=== PATIENT | female | born 1975 | race Caucasian/White ===

== ENCOUNTER 2017-01-18 23:14 | Inpatient (IN) | payer OTHER ==
[2017-01-19] MEDS ORDERED: SODIUM CHLORIDE 1,000 ML IV STA ×2 (00:13→01:27)
[2017-01-19 00:46] LABS: BASOPHIL 0.9 % (0-2.0); EOSINOPHIL 1.4 % (0-4.5); MCH 26.5 pg (25.7-33.7); MCHC 32.5 g/dl (32.0-36.0); MEAN CELL VOLUME 81.6 fl (80-96); MEAN PLT VOLUME 7.9 fl (7.5-11.1); NEUTROPHILS 51.9 % (42.8-82.8); PLATELET COUNT 316 K/MM3 (134-434); RDW 16.6 % (11.6-15.6)
[2017-01-19 00:52] LABS: URINE APPEARANCE CLEAR; URINE BILIRUBIN NEGATIVE (NEGATIVE); URINE BLOOD NEGATIVE (NEGATIVE); URINE COLOR COLORLESS; URINE GLUCOSE (UA) 3+ (NEGATIVE); URINE KETONE 1+ (NEGATIVE); URINE LEUK ESTERASE NEGATIVE (NEGATIVE); URINE NITRITE NEGATIVE (NEGATIVE); URINE PROTEIN NEGATIVE (NEGATIVE); URINE UROBILINOGEN NEGATIVE mg/dL (0.2-1.0)
[2017-01-19 00:52] LABS: VENOUS BLOOD GAS HCO3 23.2 meq/L (19-25); VENOUS PH 7.25 (7.32-7.42)
[2017-01-19 01:22] LABS: ALBUMIN 3.5 g/dl (3.4-5.0); ANION GAP 12 (8-16); BILIRUBIN,TOTAL 0.3 mg/dL (0.2-1.0); CALCIUM 9.3 mg/dL (8.5-10.1); CO2 24 mmol/L (21-32); CREATININE 1.3 mg/dL (0.55-1.02); SGOT/AST 48 U/L (15-37); SGPT/ALT 27 U/L (12-78); TOT PROT 7.5 g/dl (6.4-8.2)
--- NOTE | 2017-01-19 01:22 | PDOC ---
History of Present Illness - General Chief Complaint: Blood Sugar Problem Stated Complaint: HIGH SUGAR LEVEL Time Seen by Provider: 01/18/17 23:52 - History of Present Illness Initial Comments: 01/19/17 01:16 " The patient is a 41 year old female, with a significant past medical history of Type I Diabetes , migraines, trigeminal neuralgia, gastroparesis, IBS, depression (Xanax as needed), who presents to the emergency department for complaints of feeling tired, weak, and shaky today. She reports feeling weak around noon time and reports eating half of a slice of pizza. She reports recording her BG as 450 at 4PM. The patient states she has not had her humalog ( takes 40u BID) for about a week and has been using 40 units of novolog daily because she can not afford to refill the humalog prescription. She reports being in DKA numerous times in the past, but states she doesnt feel that bad yet. She reports feeling at her worst when her BG is close to 800 and feels most comfortable around 200. She reports chills and feeling warm, but denies fever. She denies chest pain, shortness of breath, headache and dizziness. She denies fever, nausea, vomit, diarrhea and constipation. She denies dysuria, frequency, urgency and hematuria. Allergies: NKDA Social history: Denies toxic habits " Past History - Past Medical History Allergies/Adverse Reactions: Allergies Allergy/AdvReac Type Severity Reaction Status Date / Time azithromycin [From Zithromax] Allergy Verified 01/18/17 23:18 Home Medications: Ambulatory Orders Insulin Glargine,Hum.rec.anlog [Lantus (nf)] 30 units SQ HS 11/21/15 Novolog - units SQ TID 11/22/15 Methocarbamol [Robaxin -] 500 mg PO TID #21 tablet 03/31/16 Oxycodone HCl/Acetaminophen [Percocet 5/325 -] 1 tab PO Q6H #14 tablet MDD 4 Anemia: No Asthma: No Cancer: No Cardiac Disorders: No CVA: No COPD: No CHF: No Dementia: No Diabetes: Yes (IDDM 01/27 BS (150)) GI Disorders: Yes (IBS) Disorders: (severe gastroparesis, [facility] HTN: No Hypercholesterolemia: Yes (atherosclerosis) Liver Disease: No Psychiatric Problems: Yes (DEPRESSION) Seizures: No Thyroid Disease: No - Surgical History Abdominal Surgery: Yes (RIGHT ABD LIPOMA) Appendectomy: No Cardiac Surgery: No Cholecystectomy: No Lung Surgery: No Neurologic Surgery: No Orthopedic Surgery: No - Reproductive History Tubal Ligation: Yes - Immunization History Td Vaccination: Yes TDAP Vaccination: Yes Immunization Up to Date: No - Psycho/Social/Smoking Cessation Hx Anxiety: No Suicidal Ideation: No Smoking Status: No Smoking History: Never smoked Have you smoked in the past 12 months: No Number of Cigarettes Smoked Daily: 0 Hx Alcohol Use: Yes (SOCIAL) Drug/Substance Use Hx: No Substance Use Type: None Hx Substance Use Treatment: No Review of Systems - Review of Systems Comments:: 01/19/17 01:21 "GENERAL/CONSTITUTIONAL: (+) chills and generalized weakness.No fever HEAD, EYES, EARS, NOSE AND THROAT: No change in vision. No ear pain or discharge. No sore throat. CARDIOVASCULAR: No chest pain or shortness of breath. RESPIRATORY: No cough, wheezing, or hemoptysis. GASTROINTESTINAL: No nausea, vomiting, diarrhea or constipation. GENITOURINARY: No dysuria, frequency, or change in urination. MUSCULOSKELETAL: No joint or muscle swelling or pain. No neck or back pain. SKIN: No rash NEUROLOGIC: No headache, vertigo, loss of consciousness, or change in strength/ sensation. ENDOCRINE: No increased thirst. No abnormal weight change. HEMATOLOGIC/LYMPHATIC: No anemia, easy bleeding, or history of blood clots. ALLERGIC/IMMUNOLOGIC: No hives or skin allergy. " *Physical Exam - Vital Signs Last Vital Signs Temp Pulse Resp BP Pulse Ox 98.6 F 98 H 18 134/73 99 01/18/17 23:16 01/18/17 23:16 01/18/17 23:16 01/18/17 23:16 01/18/17 23:16 - Physical Exam Comments: 01/19/17 01:21 """GENERAL: Awake, alert, and fully oriented, in no acute distress HEAD: No signs of trauma EYES: PERRLA, EOMI, sclera anicteric, conjunctiva clear ENT: Auricles normal inspection, hearing grossly normal, nares patent, oropharynx clear without exudates. Moist mucosa NECK: Normal ROM, supple, no lymphadenopathy, JVD, or masses LUNGS: Breath sounds equal, clear to auscultation bilaterally. No wheezes, and no crackles HEART: Regular rate and rhythm, normal S1 and S2, no murmurs, rubs or gallops ABDOMEN: Soft, nontender, normoactive bowel sounds. No guarding, no rebound. No masses EXTREMITIES: Normal range of motion, no edema. No clubbing or cyanosis. No cords, erythema, or tenderness NEUROLOGICAL: Cranial nerves II through XII grossly intact. Normal speech, normal gait SKIN: Warm, Dry, normal turgor, no rashes or lesions noted. """ ED Treatment Course - LABORATORY CBC & Chemistry Diagram: 01/19/17 00:35 01/19/17 00:35 - ADDITIONAL ORDERS Additional order review: Laboratory Results 01/19/17 01/19/17 00:44 00:35 VBG pH 7.25 L POC VBG pCO2 55.2 H D POC VBG pO2 27.5 L Mixed VBG HCO3 23.2 Urine Color Colorless Urine Appearance Clear Urine pH 6.0 Urine Protein Negative Urine Glucose (UA) 3+ H Urine Ketones 1+ H Urine Blood Negative Urine Nitrite Negative Urine Bilirubin Negative Urine Urobilinogen Negative Ur Leukocyte Esterase Negative 01/19/17 00:35 RBC 4.42 MCV 81.6 MCHC 32.5 RDW 16.6 H MPV 7.9 Neutrophils % 51.9 Lymphocytes % 38.4 Monocytes % 7.4 Eosinophils % 1.4 Basophils % 0.9 - Medications Given in the ED: ED Medications Discontinued Medications Generic Name Dose Route Start Last Admin Trade Name Freq PRN Reason Stop Dose Admin Sodium Chloride 1,000 mls @ 1,000 mls/hr 01/19/17 00:13 01/19/17 00:44 Normal Saline - IV 01/19/17 01:12 1,000 mls/hr ASDIR STA Administration Medical Decision Making - Medical Decision Making 01/19/17 01:21 41 F with h/o DM1, DKA in the past, presents to ER with hyperglycemia in the context of medication noncompliance. Pt with stable vitals at this time. Fingerstick elevated to 400s. - Labs, serum ketones, VBG - IVF - Insulin PRN 01/19/17 03:14 Labs notable for +serum and urine ketones. VBG with pH 7.25, reflecting mild acidosis. However, AG is only 12. Pt likely in mild DKA. Pt given single dose of insulin 7u IV and 2L NS. Will hold on insulin gtt for now as gap is closed. Admit to hospital. *DC/Admit/Observation/Transfer Diagnosis at time of Disposition: Hyperglycemia - Discharge Dispostion Admit: Yes - Attestations Physician Attestion: 01/19/17 03:16 I, Dr. Scar Romeo MD, attest that this document has been prepared under my direction and personally reviewed by me in its entirety. I further attest, that it accurately reflects all work, treatment, procedures and medical decision -making performed by me.
[2017-01-19 01:23] LABS: ALK PHOS 178 U/L (45-117)
[2017-01-19 01:32] LABS: GLUCOSE,RANDOM 594 mg/dL (74-106)
[2017-01-19] MEDS ORDERED: INSULIN REGULAR HUMAN 100 UNITS/ML *VIAL IVPUSH ONE (01:42)
[2017-01-19 01:49] LABS: ACETONE SERUM POSITIVE SMALL 1+ (NEGATIVE)
[2017-01-19] MEDS ORDERED: INSULIN REGULAR HUMAN 100 UNITS/ML *VIAL ONE (02:23)
[2017-01-19] MEDS ORDERED: ONDANSETRON 4 MG/2 ML VIAL IVPB PRN (03:15)
[2017-01-19] MEDS ORDERED: ACETAMINOPHEN 325 MG TABLET (FP) PO PRN (03:16)
--- NOTE | 2017-01-19 03:20 | HP ---
Admitting History and Physical - Admission Chief Complaint: hyperglycemia History of Present Illness: 41 year old female, with a significant past medical history of Type I Diabetes , migraines, trigeminal neuralgia, gastroparesis, IBS, depression presents to the ER for hyperglycemia. she reports difficulty paying for her meds 2/2 to demanding financial trouble. she reports running out of humalog 75/25 and using novolog. she has not been feeling well over the past few days and has been having bgm in the 400s. she has been requiring 40 units of insulin daily. 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 she reports some chest tightness a few days ago which has cleared. she denies n/v/f/c/d. she denies earache, dysuria, cp, heart palps, recent travel sick contacts. she denies hematuria, bloody stools. 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 denies tobacco, rec drugs famhx- NC Ros neg except for hpi Pex gen- in nad, alert hent- at/nc, shireen, neck supple, trachea midline resp- no cough, no ronchi, , no rales, lungs ctab cards- rrr, no jvd, no leg edema, s1s2 heard skin- dry, no erythema gi- soft non-tender, no rebound, no guarding, no rigidity neuro- cn2-12 grossly intact, speech clear, no focal deficits psych- cooperative, no agitation musk- normal arom bue/ble, no back pain prob list dm type 1 hyperglycemia malaise hyponatremia imaging cxr pending a/p-41 year old female, with a significant past medical history of Type I Diabetes , migraines, trigeminal neuralgia, gastroparesis, IBS, depression presents to the er for hyperglycemia and admitted for evaluation of their emergent condition 1. type 1 dm, hyperglycemia No AG acidosis, although ketones Was given 7U insulin Iv and 2L bolus in Er Monitor BMp [id number] x 24 hours Resume home insulin 2. hyponatremia likely hyperglycemic effect monitor labs FEN IVF diabetic diet Dvt prophy low risk, scd, oob dispo- admission for hyperglycemia. 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 History Source: Patient Limitations to Obtaining History: No Limitations - Past Medical History APPLICATIONS SUPPORT LEAD: Yes: Migraine Cardiovascular: Yes: Hyperlipdemia Pulmonary: Yes: Other (cough) Gastrointestinal: Yes: Irritable Bowel Disease, Pancreatitis ...LMP: 11/22/15 Psych: Yes: Anxiety, Depression Musculoskeletal: Yes: Chronic low back pain, Other (herniated discs) ENT: Yes: Sinusitis Endocrine: Yes: Diabetes Mellitus (IDDM) - Past Surgical History Past Surgical History: Yes: Tubal Ligation (2007 Laproscopic BTL) - Smoking History Smoking history: Never smoked Have you smoked in the past 12 months: No Aproximately how many cigarettes per day: 0 - Alcohol/Substance Use Hx Alcohol Use: Yes (SOCIAL) History of Substance Use: reports: None - Social History ADL: Independent History of Recent Travel: No Home Medications - Allergies Allergies/Adverse Reactions: Allergies Allergy/AdvReac Type Severity Reaction Status Date / Time azithromycin [From Zithromax] Allergy Verified 01/18/17 23:18 - Home Medications Home Medications: Ambulatory Orders Alprazolam [Xanax] 0.5 mg PO DAILY PRN 01/19/17 Humalog Mix 75-25 Kwikpen 40 units SQ BID #1 syr 01/20/17 Family Disease History - Family Disease History Family Disease History: Diabetes: Father (HLD), Mother Physical Examination Vital Signs: Vital Signs Temperature 98.6 F 01/18/17 23:16 Pulse Rate 98 H 01/18/17 23:16 Respiratory Rate 18 01/18/17 23:16 Blood Pressure 134/73 01/18/17 23:16 O2 Sat by Pulse Oximetry (%) 99 01/18/17 23:16 Labs: CBC, BMP 01/19/17 00:35 01/19/17 00:35 Visit type - Emergency Visit Emergency Visit: Yes ED Registration Date: 01/19/17 Care time: The patient presented to the Emergency Department on the above date and was hospitalized for further evaluation of their emergent condition. - New Patient This patient is new to me today: Yes Date on this admission: 01/22/17 - Critical Care Critical Care patient: No
[2017-01-19] MEDS: SODIUM CHLORIDE 1,000 ML IV SCH ×3 (03:22→22:47)
[2017-01-19] MEDS ORDERED: ONDANSETRON *ODT* 4 MG TABLET ONE (06:15)
[2017-01-19] MEDS ORDERED: INSULIN (NOVOLOG) ASPART 100 UNITS/ML 10ML VIAL ONE (06:36)
[2017-01-19] MEDS ORDERED: INSULIN (NOVOLOG MIX 70/30) 100 UNITS/ML MDV SQ SCH ×2 (07:00→16:30)
[2017-01-19] MEDS ORDERED: INSULIN SLIDING SCALE (NOVOLOG) 1 VIAL SQ SCH ×3 (07:00→07:54)
[2017-01-19 07:08] LABS: ALK PHOS 132 U/L (45-117); ANION GAP 14 (8-16); BILIRUBIN,TOTAL 0.3 mg/dL (0.2-1.0); CALCIUM 8.2 mg/dL (8.5-10.1); CO2 16 mmol/L (21-32); CREATININE 0.6 mg/dL (0.55-1.02); SGPT/ALT 22 U/L (12-78); TOT PROT 6.6 g/dl (6.4-8.2)
[2017-01-19 07:15] LABS: SGOT/AST 32 U/L (15-37)
[2017-01-19 07:17] LABS: GLUCOSE,RANDOM 364 mg/dL (74-106)
[2017-01-19 08:05] VITALS: BMI 25.7
[2017-01-19 09:35] LABS: ANION GAP 12 (8-16); CALCIUM 8.2 mg/dL (8.5-10.1); CO2 20 mmol/L (21-32); CREATININE 0.7 mg/dL (0.55-1.02); GLUCOSE,RANDOM 204 mg/dL (74-106)
[2017-01-19 12:39] LABS: ANION GAP 10 (8-16); CALCIUM 8.2 mg/dL (8.5-10.1); CO2 24 mmol/L (21-32); CREATININE 0.5 mg/dL (0.55-1.02); GLUCOSE,RANDOM 257 mg/dL (74-106)
[2017-01-19 15:49] LABS: ANION GAP 10 (8-16); CALCIUM 8.7 mg/dL (8.5-10.1); CO2 24 mmol/L (21-32); CREATININE 0.6 mg/dL (0.55-1.02); GLUCOSE,RANDOM 264 mg/dL (74-106)
--- NOTE | 2017-01-19 16:52 | HOSP ---
Physical Examination Vital Signs: Vital Signs Temperature 98.3 F 01/19/17 14:00 Pulse Rate 90 01/19/17 14:00 Respiratory Rate 20 01/19/17 14:00 Blood Pressure 111/44 01/19/17 14:00 O2 Sat by Pulse Oximetry (%) 99 01/19/17 06:18 Findings/Remarks: Subjective: The patient was seen and examined at the bedside, she reports feeling good. She states her insulin dosing is not correct here and that she takes Humalog Mix 75/25 40u sq bid. Will change order. Current Medications Generic Name Dose Route Start Last Admin Trade Name Freq PRN Reason Stop Dose Admin Acetaminophen 650 mg 01/19/17 03:16 Tylenol - PO Q4H PRN FEVER OR PAIN Sodium Chloride 1,000 mls @ 125 mls/hr 01/19/17 03:15 01/19/17 15:25 Normal Saline - IV 125 mls/hr ASDIR SKINNY Administration Insulin Aspart 1 vial 01/19/17 16:26 Novolog Vial Sliding Scale - SQ [facility] Protocol Insulin Aspart 40 units 01/19/17 16:49 Novolog Mix 70/30 Vial SQ BIDAC SKINNY Ondansetron HCl 4 mg 01/19/17 03:15 Zofran Injection IVPB Q4H PRN NAUSEA AND/OR VOMITING Objective: Vital Signs Period Temp Pulse Resp BP Sys/Crisostomo Pulse Ox Last 24 Hr 98.2 F-98.6 F 90-100 18-20 110-134/44-75 99-99 CBCD WBC 4.0 K/mm3 (4.0-10.0) D 01/19/17 00:35 RBC 4.42 M/mm3 (3.60-5.2) 01/19/17 00:35 Hgb 11.7 GM/dL (10.7-15.3) 01/19/17 00:35 Hct 36.1 % (32.4-45.2) 01/19/17 00:35 MCV 81.6 fl (80-96) 01/19/17 00:35 MCHC 32.5 g/dl (32.0-36.0) 01/19/17 00:35 RDW 16.6 % (11.6-15.6) H 01/19/17 00:35 Plt Count 316 K/MM3 (134-434) D 01/19/17 00:35 MPV 7.9 fl (7.5-11.1) 01/19/17 00:35 CMP Sodium 141 mmol/L (136-145) 01/19/17 14:35 Potassium 4.3 mmol/L (3.5-5.1) 01/19/17 14:35 Chloride 107 mmol/L (98-107) 01/19/17 14:35 Carbon Dioxide 24 mmol/L (21-32) 01/19/17 14:35 Anion Gap 10 (8-16) 01/19/17 14:35 BUN 9 mg/dL (7-18) 01/19/17 14:35 Creatinine 0.6 mg/dL (0.55-1.02) 01/19/17 14:35 Creat Clearance w eGFR > 60 (>60) 01/19/17 06:25 Random Glucose 264 mg/dL (74-106) H 01/19/17 14:35 Calcium 8.7 mg/dL (8.5-10.1) 01/19/17 14:35 Total Bilirubin 0.3 mg/dL (0.2-1.0) 01/19/17 06:25 AST 32 U/L (15-37) D 01/19/17 06:25 ALT 22 U/L (12-78) 01/19/17 06:25 Alkaline Phosphatase 132 U/L (45-117) H D 01/19/17 06:25 Total Protein 6.6 g/dl (6.4-8.2) 01/19/17 06:25 Albumin 3.0 g/dl (3.4-5.0) L 01/19/17 06:25 Assessment: This is a 41 year old female with PMHx of IDDM, chronic abd pain/IBS , migranes, artherosclerosis, scoliosis, and chronic lower back pain who presented to ED with hyperglycemia after not being able to afford her insulin as an outpatient Plan: 1) Endocrine: IDDM, hyperglycemia, early DKA - Bicarb 16 this am, repeat this afternoon 24 - Anion gap 14 this AM, improved with insulin and IV fluids - Restart home insulin dose 70/30 40u sq bid - Increased meal coverage sliding scale - Monitor anion gap - F/u social services manager as patient is unable to afford insulin - BGM ACHS 2) F/E/N: - Diabetic diet - Monitor electrolytes 3) Prophylaxis: - OOB ambulating - SCDs bilaterally 4) Dispo: - Once sugars are controlled - Needs to discuss how she will pay for insulin with social services manager CODE STATUS: FULL CODE Labs: CBC, BMP 01/19/17 14:35
[2017-01-19] MEDS: INSULIN SLIDING SCALE (NOVOLOG) 1 VIAL SQ SCH (17:40)
[2017-01-19] MEDS: INSULIN (NOVOLOG MIX 70/30) 100 UNITS/ML MDV SQ SCH (17:41)
[2017-01-19] MEDS ORDERED: INSULIN (NOVOLOG MIX 70/30) 100 UNITS/ML MDV SQ ONE (18:18)
[2017-01-19] MEDS ORDERED: oxyCODONE HCL 5 MG TABLET PO PRN (20:16)
[2017-01-20 06:24] VITALS: BP 110/65; PULSE 88; TEMP 98.2
[2017-01-20] MEDS: INSULIN SLIDING SCALE (NOVOLOG) 1 VIAL SQ SCH (06:43)
[2017-01-20] MEDS: INSULIN (NOVOLOG MIX 70/30) 100 UNITS/ML MDV SQ SCH (06:47)
[2017-01-20] MEDS: SODIUM CHLORIDE 1,000 ML IV SCH (06:49)
[2017-01-20 07:47] LABS: MCHC 32.3 g/dl (32.0-36.0); MEAN CELL VOLUME 80.4 fl (80-96); PLATELET COUNT 306 K/MM3 (134-434); RDW 16.9 % (11.6-15.6); WHITE BLOOD COUNT 4.5 K/mm3 (4.0-10.0)
[2017-01-20 08:09] LABS: ALBUMIN 2.8 g/dl (3.4-5.0); ANION GAP 10 (8-16); CALCIUM 8.1 mg/dL (8.5-10.1); CO2 23 mmol/L (21-32); CREATININE 0.5 mg/dL (0.55-1.02); GLUCOSE,RANDOM 110 mg/dL (74-106); SGOT/AST 20 U/L (15-37); SGPT/ALT 19 U/L (12-78)
[2017-01-20 08:11] LABS: ALK PHOS 104 U/L (45-117); BILIRUBIN,TOTAL 0.4 mg/dL (0.2-1.0); TOT PROT 6.2 g/dl (6.4-8.2)
--- NOTE | 2017-01-20 09:19 | DS ---
Physical Exam: SUBJECTIVE: Patient seen and examined OBJECTIVE: Vital Signs Period Temp Pulse Resp BP Sys/Crisostomo Pulse Ox Last 24 Hr 98.2 F-98.9 F 79-90 20-20 110-112/44-65 99 PHYSICAL EXAM GENERAL: The patient is awake, alert, and fully oriented, in no acute distress. HEAD: Normal with no signs of trauma. EYES: PERRL, extraocular movements intact, sclera anicteric, conjunctiva clear. ENT: Ears normal, nares patent, oropharynx clear without exudates, moist mucous membranes. NECK: Trachea midline, full range of motion, supple. LUNGS: Breath sounds equal, clear to auscultation bilaterally, no wheezes, no crackles, no accessory muscle use. HEART: Regular rate and rhythm, S1, S2 without murmur, rub or gallop. ABDOMEN: Soft, nontender, nondistended, normoactive bowel sounds, no guarding, no rebound, no hepatosplenomegaly, no masses. EXTREMITIES: 2+ pulses, warm, well-perfused, no edema. NEUROLOGICAL: Cranial nerves II through XII grossly intact. Normal speech, gait not observed. PSYCH: Normal mood, normal affect. SKIN: Warm, dry, normal turgor, no rashes or lesions noted. LABS Laboratory Results - last 24 hr 01/19/17 01/19/17 01/19/17 09:08 09:42 11:25 WBC RBC Hgb Hct MCV MCH MCHC RDW Plt Count MPV Sodium 139 140 Potassium 4.5 4.0 Chloride 107 106 Carbon Dioxide 20 L D 24 Anion Gap 12 10 BUN 11 D 10 Creatinine 0.7 0.5 L D Creat Clearance w eGFR POC Glucometer 240 Random Glucose 204 H D 257 H D Calcium 8.2 L 8.2 L Total Bilirubin AST ALT Alkaline Phosphatase Total Protein Albumin 01/19/17 01/19/17 01/19/17 11:37 14:35 15:27 WBC RBC Hgb Hct MCV MCH MCHC RDW Plt Count MPV Sodium 141 Potassium 4.3 Chloride 107 Carbon Dioxide 24 Anion Gap 10 BUN 9 Creatinine 0.6 Creat Clearance w eGFR POC Glucometer 253 314 Random Glucose 264 H Calcium 8.7 Total Bilirubin AST ALT Alkaline Phosphatase Total Protein Albumin 01/19/17 01/19/17 01/20/17 16:58 22:18 06:30 WBC 4.5 RBC 4.28 Hgb 11.1 Hct 34.4 MCV 80.4 MCH 26.0 MCHC 32.3 RDW 16.9 H Plt Count 306 MPV 8.0 Sodium Potassium Chloride Carbon Dioxide Anion Gap BUN Creatinine Creat Clearance w eGFR POC Glucometer 321 78 Random Glucose Calcium Total Bilirubin AST ALT Alkaline Phosphatase Total Protein Albumin 01/20/17 01/20/17 06:30 06:42 WBC RBC Hgb Hct MCV MCH MCHC RDW Plt Count MPV Sodium 143 Potassium 3.5 Chloride 110 H Carbon Dioxide 23 Anion Gap 10 BUN 6 L D Creatinine 0.5 L Creat Clearance w eGFR > 60 POC Glucometer 105 Random Glucose 110 H D Calcium 8.1 L Total Bilirubin 0.4 D AST 20 D ALT 19 Alkaline Phosphatase 104 D Total Protein 6.2 L Albumin 2.8 L HOSPITAL COURSE: Date of Admission:01/19/17 Date of Discharge: 01/20/17 Discharge Summary Reason For Visit: HYPERGLYCEMIA Current Active Problems Hydrosalpinx (Acute) Hyperglycemia (Acute) Pancreatitis (Acute) - Instructions Diet, Activity, Other Instructions: You are being provided with a prescription for Humalog 75/25 Kwikpen. Return to the emergency department for any new or worsening symptoms. Referrals: Ariel Schaeffer MD [Primary Care Provider] - - Home Medications Comprehensive Discharge Medication List: Ambulatory Orders Alprazolam [Xanax] 0.5 mg PO DAILY PRN 01/19/17 Humalog Mix 75-25 Kwikpen 40 units SQ BID #1 syr 01/20/17
== END 2017-01-20 10:51 | disposition home or self-care (01) | DRG 638 ==
LOC: JER 23:14 → JERBED 01-19 03:16 → UNDOADMIN 01-19 03:24 → JERBED 01-19 03:24 → J6S 01-19 06:49
PROVIDERS: ADMIT Internal Medicine; ATTEND Nurse Practitioner Acute Care
DX: E10.65 Type 1 diabetes mellitus with hyperglycemia (principal); E87.1 Hypo-osmolality and hyponatremia; E10.43 Type 1 diabetes mellitus with diabetic autonomic (poly)neuropathy; K31.84 Gastroparesis; Z79.4 Long term (current) use of insulin; G43.809 Other migraine, not intractable, without status migrainosus; G50.0 Trigeminal neuralgia; K58.8 Other irritable bowel syndrome; E78.00 Pure hypercholesterolemia, unspecified; J32.8 Other chronic sinusitis; M51.27 Other intervertebral disc displacement, lumbosacral region; F41.8 Other specified anxiety disorders
CPT/HCPCS: 36415; 71010-TC; 80048; 80053; 81003; 82009; 82803; 83690; 84703; 85025; 85027; 99285-25

== ENCOUNTER 2017-02-26 13:09 | Inpatient (IN) | payer OTHER ==
--- NOTE | 2017-02-26 13:53 | PDOC ---
History of Present Illness - General Chief Complaint: Nausea/Vomiting Stated Complaint: VOMITING Time Seen by Provider: 02/26/17 13:51 - History of Present Illness Initial Comments: 02/26/17 13:52 Ms. Crum is a 42 yo female with a significant past medical history of IDDM, gastroparesis, pancreatitis, gallstones, IBS, anxiety who presents to the emergency department complaining of a 1 day history of nausea with vomiting. She says that it began last night and continued this morning when she was getting ready for work. She had been feeling fine and had 3 drinks to celebrate her birthday but says that she began vomiting later in the night water she had been drinking. She describes the vomit this morning as consisting of some chicken that she ate last night. Ms. Crum also endorses midline abdominal gastric burning she says is on the skin and that she has had 3 small episodes of diarrhea today. She relates this episode as similar to last year to when she presented for her gastroparesis. The patient denies chest pain, shortness of breath, headache and dizziness. Denies fever, chills, and constipation. Denies dysuria, frequency, urgency and hematuria. Allergies: Azithromycin Past History - Past Medical History Allergies/Adverse Reactions: Allergies Allergy/AdvReac Type Severity Reaction Status Date / Time azithromycin [From Zithromax] Allergy Verified 02/26/17 13:22 Home Medications: Ambulatory Orders Alprazolam [Xanax] 0.5 mg PO DAILY PRN 01/19/17 Humalog Mix 75-25 Kwikpen 40 units SQ BID #1 syr 01/20/17 Anemia: No Asthma: No Cancer: No Cardiac Disorders: No CVA: No COPD: No CHF: No Dementia: No Diabetes: Yes (IDDM) GI Disorders: Yes (IBS) Disorders: Yes (severe gastroparesis, pancreatitis w/hospitalization at [facility]) HTN: No Hypercholesterolemia: No Liver Disease: No Psychiatric Problems: Yes (DEPRESSION) Seizures: No Thyroid Disease: No - Surgical History Abdominal Surgery: Yes (RIGHT ABD LIPOMA) Appendectomy: No Cardiac Surgery: No Cholecystectomy: No Lung Surgery: No Neurologic Surgery: No Orthopedic Surgery: No - Reproductive History Tubal Ligation: Yes - Immunization History Td Vaccination: Yes TDAP Vaccination: Yes Immunization Up to Date: No - Suicide/Smoking/Psychosocial Hx Smoking Status: No Smoking History: Never smoked Have you smoked in the past 12 months: No Number of Cigarettes Smoked Daily: 0 Hx Alcohol Use: No Drug/Substance Use Hx: No Substance Use Type: None Hx Substance Use Treatment: No Review of Systems - Review of Systems Comments:: 02/26/17 13:53 GENERAL/CONSTITUTIONAL: No fever or chills. No weakness. HEAD, EYES, EARS, NOSE AND THROAT: No change in vision. No ear pain or discharge. No sore throat. CARDIOVASCULAR: No chest pain or shortness of breath RESPIRATORY: No cough, wheezing, or hemoptysis. GASTROINTESTINAL: +Burning reported surrounding umbilicus patient describes as burning sensation. +Nausea with vomiting consisting of recent diet. 3 small episodes of diarrhea. Typically has constipation daily as well. GENITOURINARY: No dysuria, frequency, or change in urination. MUSCULOSKELETAL: No joint or muscle swelling or pain. No neck or back pain. SKIN: No rash NEUROLOGIC: No headache, vertigo, loss of consciousness, or change in strength/ sensation. ENDOCRINE: No increased thirst. No abnormal weight change HEMATOLOGIC/LYMPHATIC: No anemia, easy bleeding, or history of blood clots. ALLERGIC/IMMUNOLOGIC: No hives or skin allergy. *Physical Exam - Vital Signs Last Vital Signs Temp Pulse Resp BP Pulse Ox 98.7 F 122 H 20 116/61 100 02/26/17 13:19 02/26/17 13:19 02/26/17 13:19 02/26/17 13:19 02/26/17 13:19 - Physical Exam Comments: 02/26/17 13:53 GENERAL: Awake, alert, and fully oriented, in no acute distress HEAD: No signs of trauma, normocephalic, atraumatic EYES: PERRLA, EOMI, sclera anicteric, conjunctiva clear ENT: Auricles normal inspection, hearing grossly normal, nares patent, oropharynx clear without exudates. Moist mucosa NECK: Normal ROM, supple, no lymphadenopathy, JVD, or masses LUNGS: No distress, speaks full sentences, clear to auscultation bilaterally HEART: Regular rate and rhythm, normal S1 and S2, no murmurs, rubs or gallops, peripheral pulses normal and equal bilaterally. ABDOMEN: Soft, nontender, normoactive bowel sounds. No guarding, no rebound. No masses EXTREMITIES: Normal inspection, Normal range of motion, no edema. No clubbing or cyanosis. NEUROLOGICAL: Cranial nerves II through XII grossly intact. Normal speech, normal gait, no focal sensorimotor deficits SKIN: Warm, Dry, normal turgor, no rashes or lesions noted. ED Treatment Course - LABORATORY CBC & Chemistry Diagram: 02/26/17 15:08 02/26/17 15:08 Medical Decision Making - Medical Decision Making 02/26/17 16:58 Patient worked up initially as viral illness for N/V/D, lab glucose returned approx. 1630 that blood glucose was 706. Insulin push 5 units given with drip started .1 mcg /kg/ hr. 02/26/17 16:59 ICU consulted for admission for DKA. 02/26/17 17:40 Inpatient accepted patient for admission. *DC/Admit/Observation/Transfer Diagnosis at time of Disposition: Diabetic ketoacidosis Qualifiers: Diabetes mellitus type: type 1 Diabetes mellitus complication detail: without coma Qualified Code(s): E10.10 - Type 1 diabetes mellitus with ketoacidosis without coma - Discharge Dispostion Admit: Yes
[2017-02-26] MEDS ORDERED: ONDANSETRON 4 MG/2 ML VIAL IVPUSH ONE (14:04)
[2017-02-26] MEDS ORDERED: SODIUM CHLORIDE 1,000 ML IV STA ×2 (14:05→16:02)
[2017-02-26] MEDS ORDERED: morphine CARPU-JECT 2 MG/1 ML DISP.SYRIN IVPUSH ONE ×2 (14:13→16:30)
[2017-02-26] MEDS ORDERED: morphine CARPU-JECT 10 MG/1 ML DISP.SYRIN ONE ×2 (14:46→16:36)
[2017-02-26 15:38] LABS: BASOPHIL 0.4 % (0-2.0); MCH 25.7 pg (25.7-33.7); MCHC 30.1 g/dl (32.0-36.0); MEAN CELL VOLUME 85.5 fl (80-96); MEAN PLT VOLUME 9.1 fl (7.5-11.1); NEUTROPHILS 90.9 % (42.8-82.8); PLATELET COUNT 439 K/MM3 (134-434); RDW 17.4 % (11.6-15.6); WHITE BLOOD COUNT 14.2 K/mm3 (4.0-10.0)
--- NOTE | 2017-02-26 15:53 | PDOC ---
Attending Attestation - Resident Resident Name: Josh Lagos - ED Attending Attestation I have performed the following: I have examined & evaluated the patient, The case was reviewed & discussed with the resident, I agree w/resident's findings & plan, Exceptions are as noted - HPI HPI: 02/26/17 15:53 42yo F hx IDDM, gastropareisis, pancreatitis, gallstones, IBS, anxiety p/w 1 day of nausea and NBNB vomiting. Drank 3 etoh drinks yesterday. Had 3 small BM this morning, loose and 3 more bowel movements in the ED. Also reports burning pain to epigastric area. Has not checked her blood sugar today. No fevers, chills, CP, cough, SOB, dysuria, LE edema, rashes. REports this feels like the symptoms a/w her gastroparesis. - Physicial Exam PE: 02/26/17 16:00 GENERAL: Awake, alert, and fully oriented, in no acute distress HEAD: No signs of trauma EYES: PERRLA, EOMI, sclera anicteric, conjunctiva clear ENT: Auricles normal inspection, hearing grossly normal, nares patent, oropharynx clear without exudates. dry MM. NECK: Normal ROM, supple, no lymphadenopathy, JVD, or masses LUNGS: Breath sounds equal, clear to auscultation bilaterally. No wheezes, and no crackles HEART: tachy but regular to 110, normal S1 and S2, no murmurs, rubs or gallops ABDOMEN: Soft, nontender, normoactive bowel sounds. No guarding, no rebound. No masses EXTREMITIES: Normal range of motion, no edema. No clubbing or cyanosis. No cords, erythema, or tenderness NEUROLOGICAL: Normal speech, cranial nerves intact, negative pronator drift, 5/ 5 strength in all 4 extremities, normal sensation to light touch in all 4 extremities, normal cerebellar exam, normal gait, normal reflexes and tone SKIN: Warm, Dry, normal turgor, no rashes or lesions noted. - Medical Decision Making 02/26/17 17:47 42-year-old female with multiple medical problems including insulin-dependent diabetes presents with nausea vomiting, abdominal pain. Vitals remarkable for tachycardia to the 110s and exam with dry mucous membranes. Blood glucose is critically high. Concern for DKA vs hyperglycemia +/- infection -labs -IV -acetone, vbg -cxr -ua -likely admit Heart Score/ECG Review #1 02/26/17 18:16 Twelve-lead EKG was performed and reviewed by me. Sinus tachycardia, rate 113. Normal axis. Prolonged QT to 491. No ST elevations..
[2017-02-26] MEDS ORDERED: METOCLOPRAMIDE HCL INJECTION 10 MG/2 ML VIAL IVPB ONE (16:02)
[2017-02-26] MEDS ORDERED: METOCLOPRAMIDE HCL INJECTION 10 MG/2 ML VIAL IVPUSH ONE (16:02)
[2017-02-26 16:15] LABS: ALBUMIN 4.3 g/dl (3.4-5.0); ANION GAP 28 (8-16); CALCIUM 9.7 mg/dL (8.5-10.1); CO2 9 mmol/L (21-32)
[2017-02-26 16:18] LABS: ALK PHOS 200 U/L (45-117); BILIRUBIN,TOTAL 0.5 mg/dL (0.2-1.0); CREATININE 1.6 mg/dL (0.55-1.02); SGOT/AST 17 U/L (15-37); SGPT/ALT 20 U/L (12-78); TOT PROT 8.7 g/dl (6.4-8.2)
[2017-02-26 16:23] LABS: GLUCOSE,RANDOM 706 mg/dL (74-106)
[2017-02-26] MEDS ORDERED: METOCLOPRAMIDE HCL INJECTION 10 MG/2 ML VIAL ONE (16:25)
[2017-02-26] MEDS ORDERED: INSULIN REGULAR HUMAN 100 UNITS/ML *VIAL IVPUSH ONE (16:26)
[2017-02-26] MEDS ORDERED: INSULIN REGULAR HUMAN 100 UNITS/ML *VIAL ONE (16:46)
[2017-02-26] MEDS: INSULIN REGULAR 100 UNITS in SODIUM CHLORIDE 99 ML IVPB SCH (17:00)
[2017-02-26] MEDS ORDERED: MAGNESIUM SULF 50% (8.12 MEQ/2 ML-1 GM VIAL) IVPB ONE (17:57)
--- NOTE | 2017-02-26 18:27 | HP ---
CHIEF COMPLAINT: n/v PCP: Dr. Schaeffer HISTORY OF PRESENT ILLNESS: 42 yr old woman presents to the ED with 1 day of watery nonbilous nonbloody vomiting this morning and lower abdominal pain since last night. The pain is non -radiating, feels like burning and started around 9pm after she had eaten rotisseri chicken and drank 3 "tropical" sugary alcohol drinks earlier in the evening. She was in her usual state of health earlier yesterday. She had 2 episodes of vomiting this morning at 7am, went to work where she continued to feel abdominal pain. She went home and thought she just need a shower and rest but when that provided no relief she came to the ED. a/w with mid-upper chest pressure that worsened with walking which felt like she was short of breath, relieved when she stopped walking, did not occur at rest, was occurring since this morning. Pt says she has had DKA in the past and told her PCP and case reviewer Dr. 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 does not follow with optho or belt turner Migraines disc herniations: L3-s1 and C2-3 anxiety, depression trigeminal neuralgia atherosclerosis mild gallstones IBS, severe gastroparesis internal hemorhoids right sciatica PAST SURGICAL HISTORY: lipoma removal RLQ 2006 tubal ligation 2007 Social History: Smoking: denies Alcohol: occasionally Drugs: denies Family History: brother and nephew dx'd with DM Allergies azithromycin [From Zithromax] Allergy (Verified 02/26/17 13:22) HOME MEDICATIONS: Home Medications humalon 75/25 mix pen 40 units in the AM and PM percocet 5/325 q6hr prn for chronic lower back pain xanax 5mg prn ambien 10mg prn REVIEW OF SYSTEMS CONSTITUTIONAL: Present: 5lbs weight loss in [place] last month unintentional Absent: fever, chills, diaphoresis, generalized weakness, malaise, loss of appetite, weight change HEENT: Present: difficulty swallowing due to vomiting Absent: rhinorrhea, nasal congestion, throat pain, throat swelling, mouth swelling, ear pain, eye pain, visual changes CARDIOVASCULAR: Absent: chest pain, syncope, palpitations, irregular heart rate, lightheadedness , peripheral edema RESPIRATORY: Present: shortness of breath Absent: cough, , dyspnea with exertion, orthopnea, wheezing, stridor, hemoptysis GASTROINTESTINAL: Present: abdominal pain, Absent: abdominal distension, nausea, vomiting, diarrhea, constipation, melena , hematochezia GENITOURINARY: Present: urinary frequency Absent: dysuria, , urgency, hesitancy, hematuria, flank pain, genital pain MUSCULOSKELETAL: Absent: myalgia, arthralgia, joint swelling, back pain, neck pain SKIN: Absent: rash, itching, pallor HEMATOLOGIC/IMMUNOLOGIC: Absent: easy bleeding, easy bruising, lymphadenopathy, frequent infections ENDOCRINE: Absent: unexplained weight gain, unexplained weight loss, heat intolerance, cold intolerance NEUROLOGIC: Absent: headache, focal weakness or paresthesias, dizziness, unsteady gait, seizure, mental status changes, bladder or bowel incontinence PSYCHIATRIC: Present: depression Absent: anxiety, suicidal or homicidal ideation, hallucinations. PHYSICAL EXAMINATION GENERAL: Awake, alert, and fully oriented, in no acute distress. HEAD: Normal with no signs of trauma. EYES: Pupils equal, round and reactive to light, extraocular movements intact, sclera anicteric, conjunctiva clear. No lid lag. EARS, NOSE, THROAT: oropharynx clear without exudates. Moist mucous membranes. NECK: Normal range of motion, supple without lymphadenopathy, JVD, or masses. LUNGS: Breath sounds equal, clear to auscultation on right, left mid to lower base with coarse breath sounds. No wheezes, and no crackles. No accessory muscle use. HEART: Regular rate and rhythm, normal S1 and S2 without murmur, rub or gallop. ABDOMEN: Soft, nontender, not distended, normoactive bowel sounds, no guarding, no rebound, no masses. RLQ with well-healed scar MUSCULOSKELETAL: Normal range of motion at all joints. No bony deformities or tenderness. No CVA tenderness. UPPER EXTREMITIES: 2+ radial pulses, warm, well-perfused. No peripheral edema. LOWER EXTREMITIES: 2+ dp pulses, warm, well-perfused. No calf tenderness. No peripheral edema. NEUROLOGICAL: Cranial nerves II-XII intact. Normal speech. 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 4/5 hip extension/dorsi/plantar flexion in right, 5/5 knee extention on right. 5/5 at hip and knee extension on left, 5/5 left dorsi/ planter flexion. PSYCHIATRIC: Cooperative. Good eye contact. Appropriate mood and affect. SKIN: Warm, dry, normal turgor, no rashes or lesions noted, normal capillary refill. ASSESSMENT/PLAN: 42 yr old woman with hx of noncompliant IDDM presents with vomiting and abdominal pain admitted to ICU for DKA. - jenifer Na 141 #DKA with high anion gap metabolic acidosis - r/o infectious cause with u/a, chest xray - likely cause poor medication compliance - insulin drip, continue until gap is closed, repeat bmp q4hr - NS @125cc/hr NS, switch to d5 ns if BGM qhr are <250 and gap not closed - npo until long acting insulin is administered - replete if potassium <5.3 - says she has met with billing collections specialist in the past but does not want to adhere to a diabetic diet and is aware of the consequences of uncontrolled diabetes. #JOE - likely pre-renal in setting of volume depletion - IVF, repeat bmp #Leucocytosis - r/o infection vs reactive, with tachycardia meets SIRS criteria - blood cx pending, cxy and u/a pending - defer abx for now #Depression - pt denies SI/HI at this time, but has had thoughts of and wanting to - denies intentional attempt to be in DKA, denies plan for intentional self-harm #Diet: diabetic once able to take PO #DVT: heparin sq Visit type - Emergency Visit Emergency Visit: Yes ED Registration Date: 02/26/17 Care time: The patient presented to the Emergency Department on the above date and was hospitalized for further evaluation of their emergent condition. - New Patient This patient is new to me today: Yes Date on this admission: 02/26/17 - Critical Care Critical Care patient: Yes Total Critical Care Time (in minutes): 40 Critical Care Statement: The care of this patient involved high complexity decision making to prevent further life threatening deterioration of the patient 's condition and/or to evaluate & treat vital organ system(s) failure or risk of failure.
[2017-02-26] MEDS ORDERED: SODIUM CHLORIDE 1,000 ML IV SCH (18:30)
--- NOTE | 2017-02-26 18:32 | PN ---
Teaching Attending Note Name of Resident: Vitor Dash ATTENDING PHYSICIAN STATEMENT I saw and evaluated the patient. I reviewed the resident's note and discussed the case with the resident. I agree with the resident's findings and plan as documented. SUBJECTIVE:42yo F with PMH DM1, trigeminal neuralgia, IBS and depression presented with sudden onset of nausea and vomiting this AM. water only no food or bile or blood. states she ate chicken she bought from a local restaurant last night and had 2 hard liquor beverages (for her birthday) and has some abdominal discomfort but was able to go to bed. only other assoc symptoms of 3 loose BM this AM and urinary frequency. was in normal state of health for the previous week. no other family members were sick from eating the food. states she has had difficulty complying with insulin regimen and only administers lantus 40 units once a day and not twice a day as prescribed. states she informed her PMD of this and reigmen was not changed. was on insulin pump twice in the past but had allergic reaction. (?adhesive tape). also admits she does not check her sugars at all. denies CP, SOB, fever, chills, cough, dysuria, hematuria OBJECTIVE: Last Vital Signs Temp Pulse Resp BP Pulse Ox 98.7 F 122 H 20 116/61 100 02/26/17 13:19 02/26/17 13:19 02/26/17 13:19 02/26/17 13:19 02/26/17 13:19 General NAD CV S1 S2 RRR no murmur/rub/gallop Lungs CTA B/L no wheezing/rales/rhonchi Abdomen soft NT/ND no suprapubic tenderness or distention Extremities no pedal edema ASSESSMENT AND PLAN: 42yo F with PMH DM1, trigeminal neuralgia, IBS and depression presented with sudden onset of nausea and vomiting this AM and found to be in DKA 1. DKA- likely due to non-compliance and dehydration. MICU admission. NPO, IVF, insulin ggt. check BGM Q1H, labs Q2H until gap closes and bicarb normalizes. once gap closes will allow to eat and administer long acting insulin 2. Pseudohyponatremia- Corrected Na 146 3. SIRS likely due to DKA- will check UA, BCx and CXR, will hold abx at this time as no source is identified 4. JOE- due to dehydration. IVF. avoid nephrotoxic agents. 5. Hyperkalemia- K >5.3 will not supplement with potassium at this time 6. DVT ppx- hep sq 7. MICU monitoring The care of this patient involved high complexity decision making to prevent further life threatening deterioration of the patient's condition and/or to evaluate & treat vital organ system(s) failure or risk of failure. 45 minutes
[2017-02-26 20:17] VITALS: BMI 23.8
--- NOTE | 2017-02-26 20:29 | CONSULT ---
Consult Consult Specialty:: Pulmonary/Critical Care Reason for Consultation:: Hyperglycemia/DKA - History of Present Illness Chief Complaint: "I felt nauseous." History of Present Illness: This is a 42-year-old female with a past medical history of DM I, trigeminal neuralgia, IBS and depression who has had multiple hospital admissions for DKA presents with nausea and vomiting since this morning found to have hyperglycemia c/w DKA and anion gap 28 now admitted to ICU for further management. Briefly, Ms. Crum has a history of DM I and has had several admissions for DKA most often in the setting of non-compliance with her insulin regimen. She has had an insulin pump in the past which she did not tolerate in the setting of reported site irritation. She endorses that she does not regularly check her blood glucose and did not take her insulin as prescribed. Yesterday was her birthday and she said she ate some chicken and drank 2-3 hard liquor beverages. She did not have any fever or chills prior and denies sick contacts. This morning she felt nauseous and had an episode of NBNB vomiting. She also noted recent loose stool for the past few days. She endorses abdominal pain and urinary frequency though denies burning. She denies chest pain, SOB and palpitations. In the ED she was started on an insulin gtt and IVFs and transferred to ICU. On my assessment she is awake and alert, denies pain and nausea. Repeat BMP pending and patiño-culture ordered. 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 Cardio/Vascular: Yes: Hyperlipdemia Pulmonary: Yes: Other (cough) Gastrointestinal: Yes: Irritable Bowel Disease, Pancreatitis ...LMP: 11/22/15 Psych: Yes: Anxiety, Depression Musculoskeletal: Yes: Chronic low back pain, Other (herniated discs) ENT: Yes: Sinusitis Endocrine: Yes: Diabetes Mellitus (IDDM) - Past Surgical History Past Surgical History: Yes: Tubal Ligation (2008 Laproscopic BTL) - Alcohol/Substance Use Hx Alcohol Use: No History of Substance Use: reports: None - Smoking History Smoking history: Never smoked Have you smoked in the past 12 months: No Aproximately how many cigarettes per day: 0 - Social History Usual Living Arrangement: Alone ADL: Independent History of Recent Travel: No Home Medications - Allergies Allergies/Adverse Reactions: Allergies Allergy/AdvReac Type Severity Reaction Status Date / Time azithromycin [From Zithromax] Allergy Verified 02/26/17 13:22 - Home Medications Home Medications: Ambulatory Orders Alprazolam [Xanax] 0.5 mg PO DAILY PRN 01/19/17 Humalog Mix 75-25 Kwikpen 40 units SQ BID #1 syr 01/20/17 Family Disease History - Family Disease History Family Disease History: Diabetes: Father (HLD), Mother Review of Systems - Review of Systems Constitutional: reports: Loss of Appetite Eyes: reports: No Symptoms HENT: reports: No Symptoms Neck: reports: No Symptoms Cardiovascular: reports: No Symptoms Respiratory: reports: No Symptoms Gastrointestinal: reports: Diarrhea Genitourinary: reports: Frequency Musculoskeletal: reports: No Symptoms Integumentary: reports: No Symptoms Neurological: reports: No Symptoms Endocrine: reports: Increased Thirst Psychiatric: reports: Depression Physical Exam Vital Signs: Vital Signs Temperature 98.2 F 02/26/17 19:03 Pulse Rate 123 H 02/26/17 20:08 Respiratory Rate 25 H 02/26/17 20:08 Blood Pressure 112/93 02/26/17 20:08 O2 Sat by Pulse Oximetry (%) 100 02/26/17 13:19 Constitutional: Yes: Well Nourished, Calm Eyes: Yes: Conjunctiva Clear, EOM Intact, PERRL HENT: Yes: Normocephalic, Other (Dry mucous membranes) Neck: Yes: WNL Cardiovascular: Yes: Regular Rate and Rhythm, Tachycardia, S1, S2 Respiratory: Yes: Regular, CTA Bilaterally Gastrointestinal: Yes: Normal Bowel Sounds, Soft Extremities: Yes: Cool Peripheral Pulses WNL: Yes Integumentary: Yes: Tattoos Neurological: Yes: Alert, Oriented Labs: CBC, BMP 02/26/17 15:08 02/26/17 15:08 Imaging - Results Chest X-ray: Pending EKG: Pending Problem List - Problems (1) Diabetic ketoacidosis Code(s): E13.10 - OTH DIABETES MELLITUS WITH KETOACIDOSIS WITHOUT COMA Qualifiers: Diabetes mellitus type: type 1 Diabetes mellitus complication detail: without coma Qualified Code(s): E10.10 - Type 1 diabetes mellitus with ketoacidosis without coma; E10.10 - Type 1 diabetes mellitus with ketoacidosis without coma; E10.10 - Type 1 diabetes mellitus with ketoacidosis without coma; E10.10 - Type 1 diabetes mellitus with ketoacidosis without coma Assessment/Plan This is a 42-year-old woman with a past medical history of DM I, trigeminal neuralgia, IBS, and depression who presents to the ED with 1 day of N/V found to be hyperglycemic with elevated anion gap c/w DKA likely in the setting of non -compliance with medications and less likely in the setting of acute infection now admitted to the ICU for further care. -Continuous telemetry -Insulin gtt at 0.1unit/kg/hr -IVFs, add dextrose once glucose reaches 250 -NPO for now while gap still open -Repeat BMP STAT -Potassium replacement as needed -BMP q4 until AG closes -Patiño-culture, does not appear to have infectious prodrome, hold ABX for now -ECG -CXR -DVT ppx with Hep sq Total CC Time: 35 mins YASMIN Rees
[2017-02-26 20:43] LABS: URINE APPEARANCE CLEAR; URINE BILIRUBIN NEGATIVE (NEGATIVE); URINE BLOOD 1+ (NEGATIVE); URINE COLOR COLORLESS; URINE GLUCOSE (UA) 3+ (NEGATIVE); URINE KETONE 2+ (NEGATIVE); URINE NITRITE NEGATIVE (NEGATIVE); URINE PROTEIN NEGATIVE (NEGATIVE); URINE UROBILINOGEN NEGATIVE mg/dL (0.2-1.0)
[2017-02-26 21:08] LABS: MAGNESIUM 2.6 mg/dL (1.8-2.4); PHOSPHOROUS 8.2 mg/dL (2.5-4.9)
[2017-02-26 21:16] LABS: URINE MUCUS RARE; URINE WBC <1 /hpf (3-5)
[2017-02-26] MEDS: MUPIROCIN 2% TOPICAL OINTMENT FOR DECOLONIZATION NS SCH (22:03)
[2017-02-26] MEDS: HEPARIN NA (PORCINE) 5,000 UNITS/ML 1ML VIAL SQ SCH (22:03)
[2017-02-26] MEDS: CHLORHEXIDINE GLUCONATE 4% CLEANSER FOR DECOLONIZATION TP SCH (22:04)
[2017-02-26 22:14] LABS: CREATININE 1.2 mg/dL (0.55-1.02); MAGNESIUM 2.1 mg/dL (1.8-2.4); PHOSPHOROUS 3.1 mg/dL (2.5-4.9)
[2017-02-26 22:27] LABS: URINE LEUK ESTERASE Negative (NEGATIVE)
[2017-02-26 22:29] LABS: ANION GAP 21 (8-16); CO2 5 mmol/L (21-32)
[2017-02-26 22:30] LABS: GLUCOSE,RANDOM 331 mg/dL (74-106)
[2017-02-26] MEDS ORDERED: D5-NS + 20 MEQ KCL - 1,000 ML IV SCH (23:15)
[2017-02-27] MEDS ORDERED: ONDANSETRON 4 MG/2 ML VIAL ONE ×2 (01:17→09:30)
[2017-02-27] MEDS ORDERED: ONDANSETRON 4 MG/2 ML VIAL IVPUSH ONE (05:32)
[2017-02-27 06:20] LABS: BASOPHIL 0.3 % (0-2.0); MCH 26.1 pg (25.7-33.7); MCHC 32.4 g/dl (32.0-36.0); MEAN CELL VOLUME 80.4 fl (80-96); MEAN PLT VOLUME 8.3 fl (7.5-11.1); PLATELET COUNT 397 K/MM3 (134-434); RDW 16.4 % (11.6-15.6); WHITE BLOOD COUNT 13.4 K/mm3 (4.0-10.0)
--- NOTE | 2017-02-27 06:40 | PN ---
Physical Exam: SUBJECTIVE: Patient seen and examined at bedside. Patient feels better today. No episodes of vomiting overnight. OBJECTIVE: Vital Signs Period Temp Pulse Resp BP Sys/Crisostomo Pulse Ox Last 24 Hr 98.2 F-99.3 F 94-125 16-25 108-123/55-93 100 GENERAL: The patient is awake, alert, and fully oriented, in no acute distress. HEAD: Normal with no signs of trauma. EYES: extraocular movements intact, sclera anicteric, conjunctiva clear. No ptosis. NECK: Trachea midline, full range of motion, supple. LUNGS: Breath sounds equal, clear to auscultation bilaterally, no wheezes, no crackles, no accessory muscle use. HEART: Regular rate and rhythm, S1, S2 without murmur, rub or gallop. ABDOMEN: Soft, nontender, nondistended, normoactive bowel sounds, no guarding, no rebound. EXTREMITIES: 2+ pulses, warm, well-perfused, no edema. NEUROLOGICAL: Cranial nerves II through X grossly intact. Normal speech, gait not observed. PSYCH: Normal mood, normal affect. SKIN: Warm, dry, normal turgor, no rashes or lesions noted Laboratory Results - last 24 hr 02/26/17 02/26/17 02/26/17 18:59 21:30 21:30 WBC RBC Hgb Hct MCV MCH MCHC RDW Plt Count MPV Neutrophils % Lymphocytes % Monocytes % Eosinophils % Basophils % Sodium 139 Potassium 4.3 D Chloride 113 H D Carbon Dioxide 5 L D Anion Gap 21 H BUN 22 H D Creatinine 1.2 H D Random Glucose 331 H* D Lactic Acid 1.5 Calcium 8.0 L Phosphorus 3.1 D Magnesium 2.1 Urine Color Colorless Urine Appearance Clear Urine pH 5.0 Ur Specific [place] 1.015 Urine Protein Negative Urine Glucose (UA) 3+ H Urine Ketones 2+ H Urine Blood 1+ H Urine Nitrite Negative Urine Bilirubin Negative Urine Urobilinogen Negative Ur Leukocyte Esterase Negative Urine RBC None Urine WBC <1 Urine Mucus Rare Urine HCG, Qual Negative 02/27/17 05:10 WBC 13.4 H RBC 4.22 Hgb 11.0 D Hct 33.9 D MCV 80.4 MCH 26.1 MCHC 32.4 RDW 16.4 H Plt Count 397 MPV 8.3 Neutrophils % 83.0 H Lymphocytes % 9.9 D Monocytes % 6.8 D Eosinophils % 0.0 Basophils % 0.3 Sodium Potassium Chloride Carbon Dioxide Anion Gap BUN Creatinine Random Glucose Lactic Acid Calcium Phosphorus Magnesium Urine Color Urine Appearance Urine pH Ur Specific [place] Urine Protein Urine Glucose (UA) Urine Ketones Urine Blood Urine Nitrite Urine Bilirubin Urine Urobilinogen Ur Leukocyte Esterase Urine RBC Urine WBC Urine Mucus Urine HCG, Qual Active Medications Generic Name Dose Route Start Last Admin Trade Name Zayra PRN Reason Stop Dose Admin Chlorhexidine Gluconate 1 applic 02/26/17 22:00 02/26/17 22:04 Hibiclens For Decolonization - TP 1 applic HS SKINNY Administration Heparin Sodium (Porcine) 5,000 unit 02/26/17 22:00 02/26/17 22:03 Heparin - SQ 5,000 unit BID SKINNY Administration Insulin Human Regular 100 100 mls @ 6.35 mls/hr 02/26/17 16:45 02/26/17 17:00 units/ Sodium Chloride IVPB 6.35 mls/hr TITR SKINNY Administration Protocol 0.1 UNITS/KG/HR Sodium Chloride 1,000 mls @ 125 mls/hr 02/26/17 18:30 02/26/17 18:59 Normal Saline - IV 125 mls/hr ASDIR SKINNY Administration Dextrose/Sodium Chloride 1,000 mls @ 125 mls/hr 02/26/17 23:15 02/27/17 00:14 Dextrose 5%-Normal Saline+20 Meq Kcl - IV 125 mls/hr ASDIR SKINNY Administration Mupirocin 1 applic 02/26/17 22:00 02/26/17 22:03 Bactroban Ointment (For Decolonization) - NS 03/03/17 21:59 1 applic BID SKINNY Administration ASSESSMENT/PLAN: 42 yr old woman with hx of noncompliant IDDM presents with vomiting and abdominal pain admitted to ICU for DKA. #DKA with high anion gap metabolic acidosis likely 2/2 medication noncompliance r/o infectious etiology -CXR negative -likely cause poor medication compliance -insulin drip, continue until gap is closed -D5 NS @125 -npo until long acting insulin is administered #JOE - likely pre-renal in setting of volume depletion -c/w IVF, monitor renal function #Leucocytosis likley reactive r/o infection -blood cx pending, cxy and u/a pending #Depression -pt denies SI/HI at this time, but has had thoughts of and wanting to -denies intentional attempt to be in DKA, denies plan for intentional self- harm #FEN -D5 1/2NS @ 125 -monitor lytes -NPO until anion gap closed #prophy -Hep SQ 5ku TID -no gi prophy indicated at this time #dispo -admitted to ICU for DKA Visit type - Emergency Visit Emergency Visit: Yes ED Registration Date: 02/26/17 Care time: The patient presented to the Emergency Department on the above date and was hospitalized for further evaluation of their emergent condition. - New Patient This patient is new to me today: Yes Date on this admission: 02/27/17 - Critical Care Critical Care patient: No
[2017-02-27 07:05] LABS: ANION GAP 16 (8-16); CALCIUM 7.8 mg/dL (8.5-10.1); CO2 14 mmol/L (21-32); GLUCOSE,RANDOM 238 mg/dL (74-106); PHOSPHOROUS 1.7 mg/dL (2.5-4.9)
[2017-02-27] MEDS ORDERED: ONDANSETRON 4 MG/2 ML VIAL IVPB ONE (08:45)
[2017-02-27] MEDS ORDERED: MAGNESIUM SULF 50% (8.12 MEQ/2 ML-1 GM VIAL) IVPB ONE (09:02)
[2017-02-27] MEDS: HEPARIN NA (PORCINE) 5,000 UNITS/ML 1ML VIAL SQ SCH ×2 (10:00→21:34)
[2017-02-27 11:54] LABS: ANION GAP 14 (8-16); CO2 14 mmol/L (21-32)
[2017-02-27 11:55] LABS: GLUCOSE,RANDOM 331 mg/dL (74-106)
[2017-02-27] MEDS: MUPIROCIN 2% TOPICAL OINTMENT FOR DECOLONIZATION NS SCH ×2 (12:06→21:28)
--- NOTE | 2017-02-27 13:26 | MSN ---
Progress Note (SOAP) - Subjective Chief Complaint: cc: 42 y/o female with PMH of DM, trigeminal neuralgia, IBS, and depression presented with vomiting and abdominal pain and was admitted for DKA. History of Present Illness: Pt vomited twice this morning and reports that the emesis was nonbloody, nonbilious. Pt admits to weakness, increased frequency of urination, and increased thirst. She denies headache, chest pain, palpitations, SOB, and diarrhea. - Current Medications Current Medications: Active Medications Chlorhexidine Gluconate (Hibiclens For Decolonization -) 1 applic TP HS SKINNY Last Admin: 02/26/17 22:04 Dose: 1 applic Heparin Sodium (Porcine) (Heparin -) 5,000 unit SQ BID SKINNY Last Admin: 02/27/17 10:00 Dose: Not Given Insulin Human Regular 100 (units/ Sodium Chloride) 100 mls @ 6.35 mls/hr IVPB TITR SKINNY; 0.1 UNITS/KG/HR PRN Reason: Protocol Last Titration: 02/27/17 12:35 Dose: 0.1 units/kg/hr Sodium Chloride (Normal Saline -) 1,000 mls @ 125 mls/hr IV ASDIR SKINNY Last Admin: 02/26/17 18:59 Dose: 125 mls/hr Dextrose/Sodium Chloride (Dextrose 5%-Normal Saline+20 Meq Kcl -) 1,000 mls @ 125 mls/hr IV ASDIR SKINNY Last Admin: 02/27/17 00:14 Dose: 125 mls/hr Mupirocin (Bactroban Ointment (For Decolonization) -) 1 applic NS BID SKINNY Stop: 03/03/17 21:59 Last Admin: 02/27/17 12:06 Dose: 1 applic Potassium Phos/Sodium Phos (Phos-Nak Packet -) 1 packet PO TID SKINNY - Objective Vital Signs: Vital Signs Temperature 97.8 F 02/27/17 10:13 Pulse Rate 89 02/27/17 12:00 Respiratory Rate 20 02/27/17 12:00 Blood Pressure 105/67 02/27/17 12:00 O2 Sat by Pulse Oximetry (%) 100 02/27/17 09:00 Constitutional: Yes: No Distress, Calm HENT: Yes: WNL, Atraumatic, Normocephalic Cardiovascular: Yes: WNL, Regular Rate and Rhythm Respiratory: Yes: WNL, Regular, CTA Bilaterally Gastrointestinal: Yes: Soft, Hypoactive Bowel Sounds, Tenderness (mild tenderness in LLQ) Edema: No (no leg edema) Labs Lab Results: CBC, BMP 02/27/17 05:10 02/27/17 11:20 Laboratory Results - last 24 hr 02/26/17 02/26/17 02/26/17 15:07 15:07 15:08 WBC 14.2 H D RBC 4.77 Hgb 12.3 D Hct 40.8 D MCV 85.5 MCH 25.7 MCHC 30.1 L RDW 17.4 H Plt Count 439 H D MPV 9.1 D Neutrophils % 90.9 H D Lymphocytes % 6.0 L D Monocytes % 2.7 L Eosinophils % 0.0 D Basophils % 0.4 Sodium Potassium Chloride Carbon Dioxide Anion Gap BUN Creatinine Creat Clearance w eGFR POC Glucometer Random Glucose Lactic Acid Calcium Phosphorus 8.2 H D Magnesium 2.6 H D Total Bilirubin AST ALT Alkaline Phosphatase Total Protein Albumin Urine Color Urine Appearance Urine pH Ur Specific [place] Urine Protein Urine Glucose (UA) Urine Ketones Urine Blood Urine Nitrite Urine Bilirubin Urine Urobilinogen Ur Leukocyte Esterase Urine RBC Urine WBC Urine Mucus Urine HCG, Qual Acetone, Qual Positive large 3+ H 02/26/17 02/26/17 02/26/17 15:08 18:59 21:30 WBC RBC Hgb Hct MCV MCH MCHC RDW Plt Count MPV Neutrophils % Lymphocytes % Monocytes % Eosinophils % Basophils % Sodium 131 L 139 Potassium 5.4 H D 4.3 D Chloride 94 L D 113 H D Carbon Dioxide 9 L D 5 L D Anion Gap 28 H 21 H BUN 31 H D 22 H D Creatinine 1.6 H D 1.2 H D Creat Clearance w eGFR 35.35 POC Glucometer Random Glucose 706 H* D 331 H* D Lactic Acid Calcium 9.7 8.0 L Phosphorus 3.1 D Magnesium 2.1 Total Bilirubin 0.5 D AST 17 ALT 20 Alkaline Phosphatase 200 H D Total Protein 8.7 H D Albumin 4.3 D Urine Color Colorless Urine Appearance Clear Urine pH 5.0 Ur Specific [place] 1.015 Urine Protein Negative Urine Glucose (UA) 3+ H Urine Ketones 2+ H Urine Blood 1+ H Urine Nitrite Negative Urine Bilirubin Negative Urine Urobilinogen Negative Ur Leukocyte Esterase Negative Urine RBC None Urine WBC <1 Urine Mucus Rare Urine HCG, Qual Negative Acetone, Qual 02/26/17 02/26/17 02/27/17 21:30 22:46 05:10 WBC 13.4 H RBC 4.22 Hgb 11.0 D Hct 33.9 D MCV 80.4 MCH 26.1 MCHC 32.4 RDW 16.4 H Plt Count 397 MPV 8.3 Neutrophils % 83.0 H Lymphocytes % 9.9 D Monocytes % 6.8 D Eosinophils % 0.0 Basophils % 0.3 Sodium Potassium Chloride Carbon Dioxide Anion Gap BUN Creatinine Creat Clearance w eGFR POC Glucometer [phone] Random Glucose Lactic Acid 1.5 Calcium Phosphorus Magnesium Total Bilirubin AST ALT Alkaline Phosphatase Total Protein Albumin Urine Color Urine Appearance Urine pH Ur Specific [place] Urine Protein Urine Glucose (UA) Urine Ketones Urine Blood Urine Nitrite Urine Bilirubin Urine Urobilinogen Ur Leukocyte Esterase Urine RBC Urine WBC Urine Mucus Urine HCG, Qual Acetone, Qual 02/27/17 02/27/17 05:10 11:20 WBC RBC Hgb Hct MCV MCH MCHC RDW Plt Count MPV Neutrophils % Lymphocytes % Monocytes % Eosinophils % Basophils % Sodium 143 142 Potassium 3.9 4.1 Chloride 113 H 114 H Carbon Dioxide 14 L D 14 L Anion Gap 16 14 BUN 15 D 11 D Creatinine 1.0 1.0 Creat Clearance w eGFR POC Glucometer Random Glucose 238 H D 331 H* D Lactic Acid Calcium 7.8 L 8.0 L Phosphorus 1.7 L D Magnesium 2.0 Total Bilirubin AST ALT Alkaline Phosphatase Total Protein Albumin Urine Color Urine Appearance Urine pH Ur Specific [place] Urine Protein Urine Glucose (UA) Urine Ketones Urine Blood Urine Nitrite Urine Bilirubin Urine Urobilinogen Ur Leukocyte Esterase Urine RBC Urine WBC Urine Mucus Urine HCG, Qual Acetone, Qual Assessment/Plan 42 y/o female with PMH of DM, trigeminal neuralgia, IBS, depression presented with vomiting and abdominal and was admitted for DKA. 1. DKA - most likely 2/2 noncompliance - IVF - NPO - continue insulin ggt - check BMP Q2H and BGM Q1H until anion gap closes and bicarbonate normalizes - once gap is closed and bicarbonate normalized, will give food and administer long-acting insulin 2. Pseudohyponatremia - resolved 3. SIRS - likely 2/2 DKA - UA, CXR did not provide a source - blood & urine culture results pending - hold antibiotics because no source has been identified 4. JOE - 2/2 dehydration - resolved 5. Hyperkalemia - resolved 6. DVT ppx - continue heparin sq bid Nydia Berry OMS-III
[2017-02-27 14:00] LABS: ANION GAP 15 (8-16); CALCIUM 7.7 mg/dL (8.5-10.1); CO2 17 mmol/L (21-32)
[2017-02-27] MEDS ORDERED: NAPH,MB-DB/K PH,MBDB POWDER PACKET PO SCH (14:00)
[2017-02-27 14:02] LABS: GLUCOSE,RANDOM 374 mg/dL (74-106)
[2017-02-27 15:54] LABS: ALBUMIN 3.2 g/dl (3.4-5.0); ALK PHOS 107 U/L (45-117); BILIRUBIN,TOTAL 0.4 mg/dL (0.2-1.0); SGOT/AST 12 U/L (15-37); SGPT/ALT 13 U/L (12-78); TOT PROT 6.4 g/dl (6.4-8.2)
--- NOTE | 2017-02-27 16:10 | PN ---
Teaching Attending Note Name of Resident: Collin Gonzales ATTENDING PHYSICIAN STATEMENT I saw and evaluated the patient. I reviewed the resident's note and discussed the case with the resident. I agree with the resident's findings and plan as documented. SUBJECTIVE: Patient seen and examined in the ICU. Feels generalized fatigue and weakness. Remains on IV Insulin infusion. AG still elevated. Intake & Output 02/24/17 02/25/17 02/26/17 02/27/17 23:59 23:59 23:59 23:59 Intake Total 1999 1451 Balance 1999 1451 Weight 138 lb 14.259 oz 138 lb 14.259 oz Last Vital Signs Temp Pulse Resp BP Pulse Ox 99.2 F 86 22 99/58 100 02/27/17 14:08 02/27/17 14:00 02/27/17 14:00 02/27/17 14:00 02/27/17 09:00 Active Medications Chlorhexidine Gluconate (Hibiclens For Decolonization -) 1 applic TP HS SKINNY Last Admin: 02/26/17 22:04 Dose: 1 applic Heparin Sodium (Porcine) (Heparin -) 5,000 unit SQ BID SKINNY Last Admin: 02/27/17 10:00 Dose: Not Given Insulin Human Regular 100 (units/ Sodium Chloride) 100 mls @ 6.35 mls/hr IVPB TITR SKINNY; 0.1 UNITS/KG/HR PRN Reason: Protocol Last Titration: 02/27/17 12:35 Dose: 0.1 units/kg/hr Sodium Chloride (Normal Saline -) 1,000 mls @ 125 mls/hr IV ASDIR SKINNY Last Admin: 02/26/17 18:59 Dose: 125 mls/hr Dextrose/Sodium Chloride (Dextrose 5%-Normal Saline+20 Meq Kcl -) 1,000 mls @ 125 mls/hr IV ASDIR SKINNY Last Admin: 02/27/17 00:14 Dose: 125 mls/hr Mupirocin (Bactroban Ointment (For Decolonization) -) 1 applic NS BID SKINNY Stop: 03/03/17 21:59 Last Admin: 02/27/17 12:06 Dose: 1 applic Potassium Phos/Sodium Phos (Phos-Nak Packet -) 1 packet PO TID SKINNY Constitutional: Yes: NAD, appears weak Eyes: Yes: Conjunctiva Clear, EOM Intact, PERRL HENT: Yes: Normocephalic, Other (Dry mucous membranes) Neck: Yes: WNL Cardiovascular: Yes: Regular Rate and Rhythm, Tachycardia, S1, S2 Respiratory: Yes: Regular, CTA Bilaterally Gastrointestinal: Yes: Normal Bowel Sounds, Soft Extremities: Yes: Cool Peripheral Pulses WNL: Yes Integumentary: Yes: Tattoos Neurological: Yes: Alert, Oriented Labs: Laboratory Results - last 24 hr 02/26/17 02/26/17 02/26/17 15:07 15:07 15:08 WBC RBC Hgb Hct MCV MCH MCHC RDW Plt Count MPV Neutrophils % Lymphocytes % Monocytes % Eosinophils % Basophils % Sodium 131 L Potassium 5.4 H D Chloride 94 L D Carbon Dioxide 9 L D Anion Gap 28 H BUN 31 H D Creatinine 1.6 H D Creat Clearance w eGFR 35.35 POC Glucometer Random Glucose 706 H* D Lactic Acid Calcium 9.7 Phosphorus 8.2 H D Magnesium 2.6 H D Total Bilirubin 0.5 D AST 17 ALT 20 Alkaline Phosphatase 200 H D Total Protein 8.7 H D Albumin 4.3 D Urine Color Urine Appearance Urine pH Ur Specific [place] Urine Protein Urine Glucose (UA) Urine Ketones Urine Blood Urine Nitrite Urine Bilirubin Urine Urobilinogen Ur Leukocyte Esterase Urine RBC Urine WBC Urine Mucus Urine HCG, Qual Acetone, Qual Positive large 3+ H 02/26/17 02/26/17 02/26/17 18:59 21:30 21:30 WBC RBC Hgb Hct MCV MCH MCHC RDW Plt Count MPV Neutrophils % Lymphocytes % Monocytes % Eosinophils % Basophils % Sodium 139 Potassium 4.3 D Chloride 113 H D Carbon Dioxide 5 L D Anion Gap 21 H BUN 22 H D Creatinine 1.2 H D Creat Clearance w eGFR POC Glucometer Random Glucose 331 H* D Lactic Acid 1.5 Calcium 8.0 L Phosphorus 3.1 D Magnesium 2.1 Total Bilirubin AST ALT Alkaline Phosphatase Total Protein Albumin Urine Color Colorless Urine Appearance Clear Urine pH 5.0 Ur Specific [place] 1.015 Urine Protein Negative Urine Glucose (UA) 3+ H Urine Ketones 2+ H Urine Blood 1+ H Urine Nitrite Negative Urine Bilirubin Negative Urine Urobilinogen Negative Ur Leukocyte Esterase Negative Urine RBC None Urine WBC <1 Urine Mucus Rare Urine HCG, Qual Negative Acetone, Qual 02/26/17 02/27/17 02/27/17 22:46 05:10 05:10 WBC 13.4 H RBC 4.22 Hgb 11.0 D Hct 33.9 D MCV 80.4 MCH 26.1 MCHC 32.4 RDW 16.4 H Plt Count 397 MPV 8.3 Neutrophils % 83.0 H Lymphocytes % 9.9 D Monocytes % 6.8 D Eosinophils % 0.0 Basophils % 0.3 Sodium 143 Potassium 3.9 Chloride 113 H Carbon Dioxide 14 L D Anion Gap 16 BUN 15 D Creatinine 1.0 Creat Clearance w eGFR POC Glucometer [phone] Random Glucose 238 H D Lactic Acid Calcium 7.8 L Phosphorus 1.7 L D Magnesium 2.0 Total Bilirubin AST ALT Alkaline Phosphatase Total Protein Albumin Urine Color Urine Appearance Urine pH Ur Specific [place] Urine Protein Urine Glucose (UA) Urine Ketones Urine Blood Urine Nitrite Urine Bilirubin Urine Urobilinogen Ur Leukocyte Esterase Urine RBC Urine WBC Urine Mucus Urine HCG, Qual Acetone, Qual 02/27/17 02/27/17 11:20 13:00 WBC RBC Hgb Hct MCV MCH MCHC RDW Plt Count MPV Neutrophils % Lymphocytes % Monocytes % Eosinophils % Basophils % Sodium 142 146 H Potassium 4.1 3.7 Chloride 114 H 114 H Carbon Dioxide 14 L 17 L D Anion Gap 14 15 BUN 11 D 9 Creatinine 1.0 1.0 Creat Clearance w eGFR POC Glucometer Random Glucose 331 H* D 374 H* Lactic Acid Calcium 8.0 L 7.7 L Phosphorus Magnesium Total Bilirubin 0.4 AST 12 L D ALT 13 D Alkaline Phosphatase 107 D Total Protein 6.4 D Albumin 3.2 L D Urine Color Urine Appearance Urine pH Ur Specific [place] Urine Protein Urine Glucose (UA) Urine Ketones Urine Blood Urine Nitrite Urine Bilirubin Urine Urobilinogen Ur Leukocyte Esterase Urine RBC Urine WBC Urine Mucus Urine HCG, Qual Acetone, Qual Problem List - Problems (1) Diabetic ketoacidosis Code(s): E13.10 - OTH DIABETES MELLITUS WITH KETOACIDOSIS WITHOUT COMA Qualifiers: Diabetes mellitus type: type 1 Diabetes mellitus complication detail: without coma Qualified Code(s): E10.10 - Type 1 diabetes mellitus with ketoacidosis without coma; E10.10 - Type 1 diabetes mellitus with ketoacidosis without coma; E10.10 - Type 1 diabetes mellitus with ketoacidosis without coma; E10.10 - Type 1 diabetes mellitus with ketoacidosis without coma Assessment/Plan IVF IV Insulin 0.1 unit/kg/hr O2 as needed Follow lytes PO as tolerated BMP Q4 Follow cultures Dr Jacinto Critical care time spent in reviewing chart, evaluating patient and formulating plan - 35 minutes.
[2017-02-27] MEDS ORDERED: D5-1/2NS+40 MEQ KCL - 1,000 ML IV SCH (16:15)
--- NOTE | 2017-02-27 16:24 | PN ---
Teaching Attending Note Name of Resident: Tian Andujar ATTENDING PHYSICIAN STATEMENT I saw and evaluated the patient. I reviewed the resident's note and discussed the case with the resident. I agree with the resident's findings and plan as documented. SUBJECTIVE:continues to feel nauseated but requesting some soup to eat. denies Cp, SOB, fever, chills, N/V/C/D OBJECTIVE: Last Vital Signs Temp Pulse Resp BP Pulse Ox 99.2 F 86 22 99/58 100 02/27/17 14:08 02/27/17 14:00 02/27/17 14:00 02/27/17 14:00 02/27/17 09:00 General NAD CV S1 S2 RRR no murmur/rub/gallop Lungs CTA B/L no wheezing/rales/rhonchi Abdomen soft NT/ND no suprapubic tenderness or distention Extremities no pedal edema ASSESSMENT AND PLAN: 42yo F with PMH DM1, trigeminal neuralgia, IBS and depression presented with sudden onset of nausea and vomiting this AM and found to be in DKA 1. DKA- likely due to non-compliance and dehydration. AG remains open. on insulin ggt. cont to monitor bgm and chemistries. cont IVF. once gap closes will allow to eat and administer long acting insulin 2. Pseudohyponatremia- resolved 3. SIRS likely due to DKA- afebrile. UA and CXR negative for acute infection. hold abx as no clear source of infection. 4. JOE- due to dehydration. resolved. avoid nephrotoxic agents. 5. Hyperkalemia- will add KCl to IVF. monitor closely while on insulin ggt 6. Hypophosphatemia- Kphos 7. DVT ppx- hep sq 8. MICU monitoring The care of this patient involved high complexity decision making to prevent further life threatening deterioration of the patient's condition and/or to evaluate & treat vital organ system(s) failure or risk of failure. 40 minutes
[2017-02-27] MEDS ORDERED: LIDOCAINE 5% TOPICAL PATCH TP ONE (16:49)
[2017-02-27] MEDS: INSULIN REGULAR 100 UNITS in SODIUM CHLORIDE 99 ML IVPB SCH (17:03)
[2017-02-27] MEDS ORDERED: INSULIN (NOVOLOG) ASPART 100 UNITS/ML 10ML VIAL ONE (17:05)
[2017-02-27] MEDS ORDERED: DEXTROSE 5%-0.45% SALINE 1,000 ML IV SCH (17:15)
[2017-02-27] MEDS ORDERED: POTASSIUM CHLORIDE ORAL LIQUID 20 MEQ/15 ML PO ONE (17:18)
[2017-02-27] MEDS ORDERED: D5-1/2NS+20 MEQ KCL - 1,000 ML IV SCH (17:30)
--- NOTE | 2017-02-27 17:45 | CONSULT ---
Consultation: REQUESTING PROVIDER: CONSULT REQUEST: We have been asked to medically evaluate this patient for DKA 42 yo F with h/o IDDM, DKA, trigeminal neuralgia, Gallstones, pancreatitis, IBS , anxiety, and depression who initially presented to ED with decreased appetite , abdominal pain, increased urinary frequency, SOB, fatigue, and non biliary/ non bloody emesis of 1 day duration. Takes home Lantus 40 U QD, although she is supposed to take 40 U BID. Does not check BS regularly. Reports that she has had h/o allergic reaction to insulin pump. ED course was notable for glucose of 706, HCO3 14, and 2 + Urine ketones. She was given Insulin IVPB 5 U and Insulin gtt .1 mcg /kg/ hr. In ICU patient started on Insulin gtt .1 mcg/kg/hr. On current presentation endorses mild abdominal discomfort and nausea. Given 4 mg zofran. Denies fevers/chills,, chest pain, SOB, dysuria, lightheadedness, constipation/diarrhea. Patien is hemodynamically stable and afebrile. No complaints or concerns. This AM anion gap 16 and BS 238, but was receiving 1 unit of insulin. This afternoon BS 331 and anion gap 14. Changed Insulin to .1U/ kg/hr and given D5 1/2 NS. HISTORY OF PRESENT ILLNESS: REVIEW OF SYSTEMS: CONSTITUTIONAL: + generalized weakness Absent: fever, chills, diaphoresis, malaise, loss of appetite, weight change HEENT: Absent: rhinorrhea, nasal congestion, throat pain, throat swelling, difficulty swallowing, mouth swelling, ear pain, eye pain, visual changes CARDIOVASCULAR: Absent: chest pain, syncope, palpitations, irregular heart rate, lightheadedness , peripheral edema RESPIRATORY: Absent: cough, shortness of breath, dyspnea with exertion, orthopnea, wheezing, stridor, hemoptysis GASTROINTESTINAL: Absent: abdominal pain, abdominal distension, nausea, vomiting, diarrhea, constipation, melena, hematochezia GENITOURINARY: + frequency,Absent: dysuria, urgency, hesitancy, hematuria, flank pain, genital pain MUSCULOSKELETAL: Absent: myalgia, arthralgia, joint swelling, back pain, neck pain SKIN: Absent: rash, itching, pallor HEMATOLOGIC/IMMUNOLOGIC: Absent: easy bleeding, easy bruising, lymphadenopathy, frequent infections ENDOCRINE: Absent: unexplained weight gain, unexplained weight loss, heat intolerance, cold intolerance NEUROLOGIC: Absent: headache, focal weakness or paresthesias, dizziness, unsteady gait, seizure, mental status changes, bladder or bowel incontinence PSYCHIATRIC: + Anxiety Absent: depression, suicidal or homicidal ideation, hallucinations. PHYSICAL EXAMINATION Vital Signs - 24 hr 02/26/17 02/26/17 02/26/17 19:03 20:08 21:00 Temperature 98.2 F 98.9 F Pulse Rate 116 H 123 H 125 H Respiratory 17 25 H 21 Rate Blood Pressure 123/68 112/93 118/71 O2 Sat by Pulse 100 Oximetry (%) 02/26/17 02/27/17 02/27/17 23:00 00:29 02:00 Temperature Pulse Rate 114 H 110 H 106 H Respiratory 16 16 17 Rate Blood Pressure 118/71 108/71 115/73 O2 Sat by Pulse Oximetry (%) 02/27/17 02/27/17 02/27/17 04:00 06:00 08:00 Temperature 99.3 F Pulse Rate 94 H 97 H 80 Respiratory 17 14 20 Rate Blood Pressure 109/55 109/55 94/58 O2 Sat by Pulse Oximetry (%) 02/27/17 02/27/17 02/27/17 09:00 10:13 12:00 Temperature 97.8 F Pulse Rate 78 89 Respiratory 20 20 20 Rate Blood Pressure 103/64 105/67 O2 Sat by Pulse 100 Oximetry (%) 02/27/17 02/27/17 02/27/17 14:00 14:08 16:43 Temperature 99.2 F Pulse Rate 86 93 H Respiratory 22 20 Rate Blood Pressure 99/58 96/62 O2 Sat by Pulse Oximetry (%) GENERAL: Awake, alert, and fully oriented, in no acute distress. HEAD: Normal with no signs of trauma. EYES: Pupils equal, round and reactive to light, extraocular movements intact, sclera anicteric, conjunctiva clear. EARS, NOSE, THROAT: Ears normal, nares patent, oropharynx clear without exudates. Moist mucous membranes. NECK: Normal range of motion, supple without lymphadenopathy, JVD, or masses. LUNGS: Breath sounds equal, clear to auscultation bilaterally. No wheezes, and no crackles. No accessory muscle use. HEART: Regular rate and rhythm, normal S1 and S2 without murmur, rub or gallop. ABDOMEN: Soft, nontender, not distended, normoactive bowel sounds, no guarding, no rebound, no masses. No hepatomegaly or splenomegaly. MUSCULOSKELETAL: Normal range of motion at all joints. No bony deformities or tenderness. No CVA tenderness. UPPER EXTREMITIES: 2+ pulses, warm, well-perfused. No cyanosis. No clubbing. Cap refill <2 seconds. No peripheral edema. LOWER EXTREMITIES: 2+ pulses, warm, well-perfused. No calf tenderness. No peripheral edema. NEUROLOGICAL: Cranial nerves II-XII intact. Normal speech. Normal gait. PSYCHIATRIC: Cooperative. Good eye contact. Appropriate mood and affect. SKIN: Warm, dry, normal turgor, no rashes or lesions noted. Laboratory Results - last 24 hr 02/26/17 02/26/17 02/26/17 18:59 21:30 21:30 WBC RBC Hgb Hct MCV MCH MCHC RDW Plt Count MPV Neutrophils % Lymphocytes % Monocytes % Eosinophils % Basophils % Sodium 139 Potassium 4.3 D Chloride 113 H D Carbon Dioxide 5 L D Anion Gap 21 H BUN 22 H D Creatinine 1.2 H D Creat Clearance w eGFR POC Glucometer Random Glucose 331 H* D Lactic Acid 1.5 Calcium 8.0 L Phosphorus 3.1 D Magnesium 2.1 Total Bilirubin AST ALT Alkaline Phosphatase Total Protein Albumin Urine Color Colorless Urine Appearance Clear Urine pH 5.0 Ur Specific [place] 1.015 Urine Protein Negative Urine Glucose (UA) 3+ H Urine Ketones 2+ H Urine Blood 1+ H Urine Nitrite Negative Urine Bilirubin Negative Urine Urobilinogen Negative Ur Leukocyte Esterase Negative Urine RBC None Urine WBC <1 Urine Mucus Rare Urine HCG, Qual Negative 02/26/17 02/27/17 02/27/17 22:46 00:04 01:16 WBC RBC Hgb Hct MCV MCH MCHC RDW Plt Count MPV Neutrophils % Lymphocytes % Monocytes % Eosinophils % Basophils % Sodium Potassium Chloride Carbon Dioxide Anion Gap BUN Creatinine Creat Clearance w eGFR POC Glucometer 209.96057 165.17475 154.84121 Random Glucose Lactic Acid Calcium Phosphorus Magnesium Total Bilirubin AST ALT Alkaline Phosphatase Total Protein Albumin Urine Color Urine Appearance Urine pH Ur Specific [place] Urine Protein Urine Glucose (UA) Urine Ketones Urine Blood Urine Nitrite Urine Bilirubin Urine Urobilinogen Ur Leukocyte Esterase Urine RBC Urine WBC Urine Mucus Urine HCG, Qual 02/27/17 02/27/17 02/27/17 02:18 03:00 04:08 WBC RBC Hgb Hct MCV MCH MCHC RDW Plt Count MPV Neutrophils % Lymphocytes % Monocytes % Eosinophils % Basophils % Sodium Potassium Chloride Carbon Dioxide Anion Gap BUN Creatinine Creat Clearance w eGFR POC Glucometer 141.01858 160.71958 [phone] Random Glucose Lactic Acid Calcium Phosphorus Magnesium Total Bilirubin AST ALT Alkaline Phosphatase Total Protein Albumin Urine Color Urine Appearance Urine pH Ur Specific [place] Urine Protein Urine Glucose (UA) Urine Ketones Urine Blood Urine Nitrite Urine Bilirubin Urine Urobilinogen Ur Leukocyte Esterase Urine RBC Urine WBC Urine Mucus Urine HCG, Qual 02/27/17 02/27/17 02/27/17 05:10 05:10 05:37 WBC 13.4 H RBC 4.22 Hgb 11.0 D Hct 33.9 D MCV 80.4 MCH 26.1 MCHC 32.4 RDW 16.4 H Plt Count 397 MPV 8.3 Neutrophils % 83.0 H Lymphocytes % 9.9 D Monocytes % 6.8 D Eosinophils % 0.0 Basophils % 0.3 Sodium 143 Potassium 3.9 Chloride 113 H Carbon Dioxide 14 L D Anion Gap 16 BUN 15 D Creatinine 1.0 Creat Clearance w eGFR POC Glucometer 70.75382 Random Glucose 238 H D Lactic Acid Calcium 7.8 L Phosphorus 1.7 L D Magnesium 2.0 Total Bilirubin AST ALT Alkaline Phosphatase Total Protein Albumin Urine Color Urine Appearance Urine pH Ur Specific [place] Urine Protein Urine Glucose (UA) Urine Ketones Urine Blood Urine Nitrite Urine Bilirubin Urine Urobilinogen Ur Leukocyte Esterase Urine RBC Urine WBC Urine Mucus Urine HCG, Qual 02/27/17 02/27/17 02/27/17 05:59 07:03 08:35 WBC RBC Hgb Hct MCV MCH MCHC RDW Plt Count MPV Neutrophils % Lymphocytes % Monocytes % Eosinophils % Basophils % Sodium Potassium Chloride Carbon Dioxide Anion Gap BUN Creatinine Creat Clearance w eGFR POC Glucometer 259.21400 317.45574 351.78336 Random Glucose Lactic Acid Calcium Phosphorus Magnesium Total Bilirubin AST ALT Alkaline Phosphatase Total Protein Albumin Urine Color Urine Appearance Urine pH Ur Specific [place] Urine Protein Urine Glucose (UA) Urine Ketones Urine Blood Urine Nitrite Urine Bilirubin Urine Urobilinogen Ur Leukocyte Esterase Urine RBC Urine WBC Urine Mucus Urine HCG, Qual 02/27/17 02/27/17 02/27/17 09:55 11:20 11:21 WBC RBC Hgb Hct MCV MCH MCHC RDW Plt Count MPV Neutrophils % Lymphocytes % Monocytes % Eosinophils % Basophils % Sodium 142 Potassium 4.1 Chloride 114 H Carbon Dioxide 14 L Anion Gap 14 BUN 11 D Creatinine 1.0 Creat Clearance w eGFR POC Glucometer 397.87917 374.06082 Random Glucose 331 H* D Lactic Acid Calcium 8.0 L Phosphorus Magnesium Total Bilirubin AST ALT Alkaline Phosphatase Total Protein Albumin Urine Color Urine Appearance Urine pH Ur Specific [place] Urine Protein Urine Glucose (UA) Urine Ketones Urine Blood Urine Nitrite Urine Bilirubin Urine Urobilinogen Ur Leukocyte Esterase Urine RBC Urine WBC Urine Mucus Urine HCG, Qual 02/27/17 02/27/17 02/27/17 12:00 13:00 13:13 WBC RBC Hgb Hct MCV MCH MCHC RDW Plt Count MPV Neutrophils % Lymphocytes % Monocytes % Eosinophils % Basophils % Sodium 146 H Potassium 3.7 Chloride 114 H Carbon Dioxide 17 L D Anion Gap 15 BUN 9 Creatinine 1.0 Creat Clearance w eGFR Y POC Glucometer 371.13053 > 400 Random Glucose 374 H* Lactic Acid Calcium 7.7 L Phosphorus Magnesium Total Bilirubin 0.4 AST 12 L D ALT 13 D Alkaline Phosphatase 107 D Total Protein 6.4 D Albumin 3.2 L D Urine Color Urine Appearance Urine pH Ur Specific [place] Urine Protein Urine Glucose (UA) Urine Ketones Urine Blood Urine Nitrite Urine Bilirubin Urine Urobilinogen Ur Leukocyte Esterase Urine RBC Urine WBC Urine Mucus Urine HCG, Qual 02/27/17 02/27/17 02/27/17 13:59 15:02 16:04 WBC RBC Hgb Hct MCV MCH MCHC RDW Plt Count MPV Neutrophils % Lymphocytes % Monocytes % Eosinophils % Basophils % Sodium Potassium Chloride Carbon Dioxide Anion Gap BUN Creatinine Creat Clearance w eGFR POC Glucometer 347.33946 248.24047 91.86270 Random Glucose Lactic Acid Calcium Phosphorus Magnesium Total Bilirubin AST ALT Alkaline Phosphatase Total Protein Albumin Urine Color Urine Appearance Urine pH Ur Specific [place] Urine Protein Urine Glucose (UA) Urine Ketones Urine Blood Urine Nitrite Urine Bilirubin Urine Urobilinogen Ur Leukocyte Esterase Urine RBC Urine WBC Urine Mucus Urine HCG, Qual Active Medications Generic Name Dose Route Start Last Admin Trade Name Freq PRN Reason Stop Dose Admin Chlorhexidine Gluconate 1 applic 02/26/17 22:00 02/26/17 22:04 Hibiclens For Decolonization - TP 1 applic HS [facility] Administration Heparin Sodium (Porcine) 5,000 unit 02/26/17 22:00 02/27/17 10:00 Heparin - SQ Not Given BID SKINNY Insulin Human Regular 100 100 mls @ 6.35 mls/hr 02/26/17 16:45 02/27/17 17:03 units/ Sodium Chloride IVPB Not Given TITR SKINNY Protocol 0.1 UNITS/KG/HR Dextrose/Sodium Chloride 1,000 mls @ 125 mls/hr 02/27/17 17:15 02/27/17 17:31 D5-1/2ns - IV Not Given ASDIR SKINNY Potassium Chloride/Dextrose/Sod Cl 1,000 mls @ 125 mls/hr 02/27/17 17:30 17:34 D5-1/2ns+20 Meq Kcl - IV 125 mls/hr ASDIR SKINNY Administration Miscellaneous 1 each 02/27/17 22:00 Lidoderm Patch Removal MC 02/27/17 22:01 ONCE ONE Mupirocin 1 applic 02/26/17 22:00 02/27/17 12:06 Bactroban Ointment (For Decolonization) - NS 03/03/17 21:59 1 applic BID SKINNY Administration Potassium Phos/Sodium Phos 1 packet 02/27/17 14:00 02/27/17 14:05 Phos-Nak Packet - PO 1 packet TID SKINNY Administration ASSESSMENT/PLAN: 42 yo F with h/o IDDM, DKA, trigeminal neuralgia, Gallstones, pancreatitis, IBS , anxiety, and depression who was admitted to ICU for management of DKA. Neuro: A&O x3 No focal neurological deficits Psych: H/o anxiety and depression Home Alprazolam 0.5 mg PO PRN Denies suicidal and homicidal ideations, or plan to attempt self harm at this time Has h/o of thoughths of and self harm Plan: -Monitor for s/s of depression/anxiety Caridac: noncontributory Pulm: noncontributory CXR (02/26): No acute cardiopulmonry changes Renal: JOE (Resolved) -Most likely prerenal in setting of volume depletion Cr 1.6-->1.0 Plan: - Cont D5 1/2 NS 125 ml/Hr - Q2 BMP Endocrine: DKA with high anion gap metabolic acidosis Most likely 2/2 medication non compliance Low suspicion for infectious etiology ( see below) 5 U insulin ( 02/26) BS 238-->374 ( 02/27), Anion Gap 14--> 15 ( 02/27) Plan: - insulin gtt 0.1U/kg/hr until gap is closed, or reduce to 0.05 U/kg/hr when BS < 250. - Cont D5 1/2 NS @125cc/hr NS, switch to d5 ns if BGM qhr are <250 and gap not closed - Keep BS 150-200 - NPO - Replete K+ if potassium 3.3-5.3 - BMP Q2 - Start Sub Q SS Insulin when anion gap closed, BS resolved, and full diet resumed. Infectious Disease: 2/4 SIRS Criteria : WBC 14.2 leukocytosis and tachycardic. Afebrile. Absent cough and dysuria. Physical exam benign. Infectious vs Reactive WBC 14.2-->13.4 Lactic acid 1.5 UA Neg nitrites, and leuk esterase CXR: No infiltrates Plan: - Blood cx pending - Defer antibiotic treatment FEN: D5-1/2NS 125ml/hr, K+ 3.3-5.3, NPO PPX: Heparin 5000U SQ BID Dispo: We will continue to follow the patient. Thank you for this consultative opportunity. Visit type - Emergency Visit Emergency Visit: Yes ED Registration Date: 02/26/17 Care time: The patient presented to the Emergency Department on the above date and was hospitalized for further evaluation of their emergent condition. - New Patient This patient is new to me today: Yes Date on this admission: 02/27/17 - Critical Care Critical Care patient: Yes Total Critical Care Time (in minutes): 40 Critical Care Statement: The care of this patient involved high complexity decision making to prevent further life threatening deterioration of the patient 's condition and/or to evaluate & treat vital organ system(s) failure or risk of failure.
[2017-02-27 18:53] LABS: ALBUMIN 3.3 g/dl (3.4-5.0); ANION GAP 13 (8-16); BILIRUBIN,TOTAL 0.3 mg/dL (0.2-1.0); CALCIUM 8.1 mg/dL (8.5-10.1); CO2 17 mmol/L (21-32); GLUCOSE,RANDOM 134 mg/dL (74-106); SGOT/AST 16 U/L (15-37); SGPT/ALT 14 U/L (12-78)
[2017-02-27 18:55] LABS: ALK PHOS 114 U/L (45-117)
[2017-02-27] MEDS ORDERED: ACETAMINOPHEN 325 MG TABLET (FP) PO ONE (20:20)
[2017-02-27] MEDS ORDERED: PT OWN MED DRAWER 7, Y5N ONE (20:32)
[2017-02-27] MEDS: NAPH,MB-DB/K PH,MBDB POWDER PACKET PO SCH (22:00)
[2017-02-27] MEDS: CHLORHEXIDINE GLUCONATE 4% CLEANSER FOR DECOLONIZATION TP SCH (22:00)
[2017-02-27] MEDS ORDERED: LIDOCAINE PATCH REMOVAL MC ONE (22:00)
[2017-02-27 22:32] LABS: ANION GAP 10 (8-16); CALCIUM 8.1 mg/dL (8.5-10.1); CO2 21 mmol/L (21-32); CREATININE 0.8 mg/dL (0.55-1.02); GLUCOSE,RANDOM 80 mg/dL (74-106); MAGNESIUM 1.9 mg/dL (1.8-2.4)
[2017-02-27 22:46] LABS: PHOSPHOROUS 0.9 mg/dL (2.5-4.9)
[2017-02-27] MEDS ORDERED: POTASSIUM PHOSPHATE 15 MM in SODIUM CHLORIDE 100 ML IVPB ONE (22:57)
[2017-02-27] MEDS ORDERED: POTASSIUM PHOSPHATE 15 MM in SODIUM CHLORIDE 250 ML IVPB ONE (23:26)
--- NOTE | 2017-02-28 01:08 | CONSULT ---
Consult Consult Specialty:: endocrine Reason for Consultation:: dka - History of Present Illness Chief Complaint: high sugars nausea and vomiting History of Present Illness: 42 yr old woman presents to the ED with 1 day of watery nonbilous nonbloody vomiting this morning and lower abdominal pain since last night. The pain is non -radiating, feels like burning and started around 9pm after she had eaten rotisseri chicken and drank 3 "tropical" sugary alcohol drinks earlier in the evening. She was in her usual state of health earlier yesterday. She had 2 episodes of vomiting this morning at 7am, went to work where she continued to feel abdominal pain. She went home and thought she just need a shower and rest but when that provided no relief she came to the ED. has had several episodes of dka in past 3 years all due to poor diabetic compliance, has labile blood sugars,takes mixed insulin 75/25 bid does not check blood sugars - History Source History Provided By: Patient - Past Medical History [place]: Yes: Migraine Cardio/Vascular: Yes: Hyperlipdemia Pulmonary: Yes: Other (cough) Gastrointestinal: Yes: Irritable Bowel Disease, Pancreatitis ...LMP: 11/22/15 Psych: Yes: Anxiety, Depression Musculoskeletal: Yes: Chronic low back pain, Other (herniated discs) ENT: Yes: Sinusitis Endocrine: Yes: Diabetes Mellitus (IDDM) - Past Surgical History Past Surgical History: Yes: Tubal Ligation (2007 Laproscopic BTL) - Alcohol/Substance Use Hx Alcohol Use: No History of Substance Use: reports: None - Smoking History Smoking history: Never smoked Have you smoked in the past 12 months: No Aproximately how many cigarettes per day: 0 - Social History Usual Living Arrangement: Alone ADL: Independent History of Recent Travel: No Home Medications - Allergies Allergies/Adverse Reactions: Allergies Allergy/AdvReac Type Severity Reaction Status Date / Time azithromycin [From Zithromax] Allergy Verified 02/26/17 13:22 - Home Medications Home Medications: Ambulatory Orders Alprazolam [Xanax] 0.5 mg PO DAILY PRN 01/19/17 Humalog Mix 75-25 Kwikpen 40 units SQ BID #1 syr 01/20/17 Family Disease History - Family Disease History Family Disease History: Diabetes: Father (HLD), Mother Review of Systems - Review of Systems Constitutional: reports: Weakness Eyes: reports: No Symptoms Cardiovascular: reports: No Symptoms Respiratory: reports: Exercise Intolerance, SOB on Exertion Gastrointestinal: reports: No Symptoms Genitourinary: reports: No Symptoms Breasts: reports: No Symptoms Reported Musculoskeletal: reports: No Symptoms Integumentary: reports: No Symptoms Neurological: reports: No Symptoms Physical Exam Vital Signs: Vital Signs Temperature 98.8 F 02/27/17 22:00 Pulse Rate 79 02/28/17 00:00 Respiratory Rate 18 02/28/17 00:00 Blood Pressure 85/60 02/28/17 00:00 O2 Sat by Pulse Oximetry (%) 100 02/27/17 20:18 Constitutional: Yes: Calm Eyes: Yes: EOM Intact HENT: Yes: Normocephalic Neck: Yes: Trachea Midline Cardiovascular: Yes: Regular Rate and Rhythm Respiratory: Yes: CTA Bilaterally Gastrointestinal: Yes: Normal Bowel Sounds ...Rectal Exam: Yes: Deferred Renal/: Yes: WNL Breast(s): Yes: WNL Musculoskeletal: Yes: WNL Extremities: Yes: WNL Neurological: Yes: Alert, Oriented ...Motor Strength: WNL Labs: CBC, BMP 02/27/17 05:10 02/27/17 21:30 Problem List - Problems (1) Diabetic ketoacidosis Code(s): E13.10 - OTH DIABETES MELLITUS WITH KETOACIDOSIS WITHOUT COMA Qualifiers: Diabetes mellitus type: type 1 Diabetes mellitus complication detail: without coma Qualified Code(s): E10.10 - Type 1 diabetes mellitus with ketoacidosis without coma; E10.10 - Type 1 diabetes mellitus with ketoacidosis without coma; E10.10 - Type 1 diabetes mellitus with ketoacidosis without coma; E10.10 - Type 1 diabetes mellitus with ketoacidosis without coma (2) Abdominal pain Code(s): R10.9 - UNSPECIFIED ABDOMINAL PAIN Qualifiers: Abdominal location: generalized Qualified Code(s): R10.84 - Generalized abdominal pain; R10.84 - Generalized abdominal pain (3) Anxiety and depression Code(s): F41.9 - ANXIETY DISORDER, UNSPECIFIED F32.9 - MAJOR DEPRESSIVE DISORDER, SINGLE EPISODE, UNSPECIFIED Assessment/Plan Current Active Problems Diabetic ketoacidosis (Acute) Hydrosalpinx (Acute) Pancreatitis (Acute) Abnormal Lab Results 02/27/17 02/27/17 02/27/17 05:10 05:10 11:20 WBC 13.4 H RDW 16.4 H Neutrophils % 83.0 H Sodium Potassium Chloride 113 H 114 H Carbon Dioxide 14 L D 14 L Random Glucose 238 H D 331 H* D Calcium 7.8 L 8.0 L Phosphorus 1.7 L D AST Albumin 02/27/17 02/27/17 02/27/17 13:00 17:00 17:00 WBC RDW Neutrophils % Sodium 146 H Potassium 3.3 L Chloride 114 H 114 H Carbon Dioxide 17 L D 17 L Random Glucose 374 H* 134 H D Calcium 7.7 L 8.1 L Phosphorus 0.8 L* AST 12 L D Albumin 3.2 L D 3.3 L 02/27/17 21:30 WBC RDW Neutrophils % Sodium Potassium 3.2 L Chloride 114 H Carbon Dioxide Random Glucose Calcium 8.1 L Phosphorus 0.9 L* AST Albumin Laboratory Results - last 24 hr 02/26/17 02/27/17 02/27/17 22:46 00:04 01:16 WBC RBC Hgb Hct MCV MCH MCHC RDW Plt Count MPV Neutrophils % Lymphocytes % Monocytes % Eosinophils % Basophils % Sodium Potassium Chloride Carbon Dioxide Anion Gap BUN Creatinine Creat Clearance w eGFR POC Glucometer 209.88045 165.41304 154.08993 Random Glucose Calcium Phosphorus Magnesium Total Bilirubin AST ALT Alkaline Phosphatase Total Protein Albumin 02/27/17 02/27/17 02/27/17 02:18 03:00 04:08 WBC RBC Hgb Hct MCV MCH MCHC RDW Plt Count MPV Neutrophils % Lymphocytes % Monocytes % Eosinophils % Basophils % Sodium Potassium Chloride Carbon Dioxide Anion Gap BUN Creatinine Creat Clearance w eGFR POC Glucometer 141.15427 160.69589 205.75058 Random Glucose Calcium Phosphorus Magnesium Total Bilirubin AST ALT Alkaline Phosphatase Total Protein Albumin 02/27/17 02/27/17 02/27/17 05:10 05:10 05:37 WBC 13.4 H RBC 4.22 Hgb 11.0 D Hct 33.9 D MCV 80.4 MCH 26.1 MCHC 32.4 RDW 16.4 H Plt Count 397 MPV 8.3 Neutrophils % 83.0 H Lymphocytes % 9.9 D Monocytes % 6.8 D Eosinophils % 0.0 Basophils % 0.3 Sodium 143 Potassium 3.9 Chloride 113 H Carbon Dioxide 14 L D Anion Gap 16 BUN 15 D Creatinine 1.0 Creat Clearance w eGFR POC Glucometer 70.07842 Random Glucose 238 H D Calcium 7.8 L Phosphorus 1.7 L D Magnesium 2.0 Total Bilirubin AST ALT Alkaline Phosphatase Total Protein Albumin 02/27/17 02/27/17 02/27/17 05:59 07:03 08:35 WBC RBC Hgb Hct MCV MCH MCHC RDW Plt Count MPV Neutrophils % Lymphocytes % Monocytes % Eosinophils % Basophils % Sodium Potassium Chloride Carbon Dioxide Anion Gap BUN Creatinine Creat Clearance w eGFR POC Glucometer 259.43894 317.33478 351.57021 Random Glucose Calcium Phosphorus Magnesium Total Bilirubin AST ALT Alkaline Phosphatase Total Protein Albumin 02/27/17 02/27/17 02/27/17 09:55 11:20 11:21 WBC RBC Hgb Hct MCV MCH MCHC RDW Plt Count MPV Neutrophils % Lymphocytes % Monocytes % Eosinophils % Basophils % Sodium 142 Potassium 4.1 Chloride 114 H Carbon Dioxide 14 L Anion Gap 14 BUN 11 D Creatinine 1.0 Creat Clearance w eGFR POC Glucometer 397.06046 374.69102 Random Glucose 331 H* D Calcium 8.0 L Phosphorus Magnesium Total Bilirubin AST ALT Alkaline Phosphatase Total Protein Albumin 02/27/17 02/27/17 02/27/17 12:00 13:00 13:13 WBC RBC Hgb Hct MCV MCH MCHC RDW Plt Count MPV Neutrophils % Lymphocytes % Monocytes % Eosinophils % Basophils % Sodium 146 H Potassium 3.7 Chloride 114 H Carbon Dioxide 17 L D Anion Gap 15 BUN 9 Creatinine 1.0 Creat Clearance w eGFR Y POC Glucometer 371.78659 > 400 Random Glucose 374 H* Calcium 7.7 L Phosphorus Magnesium Total Bilirubin 0.4 AST 12 L D ALT 13 D Alkaline Phosphatase 107 D Total Protein 6.4 D Albumin 3.2 L D 02/27/17 02/27/17 02/27/17 13:59 15:02 16:04 WBC RBC Hgb Hct MCV MCH MCHC RDW Plt Count MPV Neutrophils % Lymphocytes % Monocytes % Eosinophils % Basophils % Sodium Potassium Chloride Carbon Dioxide Anion Gap BUN Creatinine Creat Clearance w eGFR POC Glucometer 347.48865 248.67234 91.42888 Random Glucose Calcium Phosphorus Magnesium Total Bilirubin AST ALT Alkaline Phosphatase Total Protein Albumin 02/27/17 02/27/17 02/27/17 17:00 17:00 21:30 WBC RBC Hgb Hct MCV MCH MCHC RDW Plt Count MPV Neutrophils % Lymphocytes % Monocytes % Eosinophils % Basophils % Sodium 144 145 Potassium 3.3 L 3.2 L Chloride 114 H 114 H Carbon Dioxide 17 L 21 D Anion Gap 13 10 BUN 7 D 7 Creatinine 1.0 0.8 Creat Clearance w eGFR > 60 POC Glucometer Random Glucose 134 H D 80 D Calcium 8.1 L 8.1 L Phosphorus 0.8 L* 0.9 L* Magnesium 1.9 Total Bilirubin 0.3 D AST 16 D ALT 14 Alkaline Phosphatase 114 Total Protein 7.0 Albumin 3.3 L plan: ivfluid to correct ag bmp repeat in 4 hrs iv insulin drip q1hr bgm nutrition consult Laboratory Tests 11/22/15 06:00 Hemoglobin A1c % 11.7 H D close oupatient follow up needed high risk for complications
[2017-02-28] MEDS ORDERED: SODIUM CHLORIDE 0.45%/POT 1,000 ML IV SCH (02:15)
[2017-02-28] MEDS: INSULIN SLIDING SCALE (NOVOLOG) 1 VIAL SQ SCH ×6 (02:15→22:19)
[2017-02-28 05:56] LABS: MCH 26.2 pg (25.7-33.7); MCHC 32.8 g/dl (32.0-36.0); MEAN CELL VOLUME 79.8 fl (80-96); PLATELET COUNT 335 K/MM3 (134-434); RDW 16.9 % (11.6-15.6); WHITE BLOOD COUNT 7.9 K/mm3 (4.0-10.0)
[2017-02-28] MEDS: NAPH,MB-DB/K PH,MBDB POWDER PACKET PO SCH ×2 (06:13→14:12)
[2017-02-28] MEDS: INSULIN DETEMIR 100 UNITS/ML MDV SQ SCH (06:13)
--- NOTE | 2017-02-28 06:23 | PN ---
Physical Exam: SUBJECTIVE: Patient seen and examined. gap is closed, patient tolerating PO. insulin GTT d/cd. OBJECTIVE: Vital Signs Period Temp Pulse Resp BP Sys/Crisostomo Pulse Ox Last 24 Hr 97.8 F-99.2 F 78-96 13-22 84-106/56-73 100-100 GENERAL: The patient is awake, alert, and fully oriented, in no acute distress. HEAD: Normal with no signs of trauma. NECK: Trachea midline, full range of motion, supple. LUNGS: Breath sounds equal, clear to auscultation bilaterally, no wheezes, no crackles, no accessory muscle use. HEART: Regular rate and rhythm, S1, S2 without murmur, rub or gallop. ABDOMEN: Soft, nontender, nondistended, normoactive bowel sounds, no guarding, no rebound. NEUROLOGICAL: Cranial nerves II through X grossly intact. Normal speech, gait not observed. PSYCH: Normal mood, flat affect. SKIN: Warm, dry, normal turgor, no rashes or lesions noted Laboratory Results - last 24 hr 02/26/17 02/27/17 02/27/17 22:46 00:04 01:16 WBC RBC Hgb Hct MCV MCH MCHC RDW Plt Count MPV Neutrophils % Lymphocytes % Monocytes % Eosinophils % Basophils % Sodium Potassium Chloride Carbon Dioxide Anion Gap BUN Creatinine Creat Clearance w eGFR POC Glucometer 209.27964 165.51905 154.37312 Random Glucose Calcium Phosphorus Magnesium Total Bilirubin AST ALT Alkaline Phosphatase Total Protein Albumin 02/27/17 02/27/17 02/27/17 02:18 03:00 04:08 WBC RBC Hgb Hct MCV MCH MCHC RDW Plt Count MPV Neutrophils % Lymphocytes % Monocytes % Eosinophils % Basophils % Sodium Potassium Chloride Carbon Dioxide Anion Gap BUN Creatinine Creat Clearance w eGFR POC Glucometer 141.84903 160.75503 205.15093 Random Glucose Calcium Phosphorus Magnesium Total Bilirubin AST ALT Alkaline Phosphatase Total Protein Albumin 02/27/17 02/27/17 02/27/17 05:10 05:10 05:37 WBC 13.4 H RBC 4.22 Hgb 11.0 D Hct 33.9 D MCV 80.4 MCH 26.1 MCHC 32.4 RDW 16.4 H Plt Count 397 MPV 8.3 Neutrophils % 83.0 H Lymphocytes % 9.9 D Monocytes % 6.8 D Eosinophils % 0.0 Basophils % 0.3 Sodium 143 Potassium 3.9 Chloride 113 H Carbon Dioxide 14 L D Anion Gap 16 BUN 15 D Creatinine 1.0 Creat Clearance w eGFR POC Glucometer 70.44988 Random Glucose 238 H D Calcium 7.8 L Phosphorus 1.7 L D Magnesium 2.0 Total Bilirubin AST ALT Alkaline Phosphatase Total Protein Albumin 02/27/17 02/27/17 02/27/17 05:59 07:03 08:35 WBC RBC Hgb Hct MCV MCH MCHC RDW Plt Count MPV Neutrophils % Lymphocytes % Monocytes % Eosinophils % Basophils % Sodium Potassium Chloride Carbon Dioxide Anion Gap BUN Creatinine Creat Clearance w eGFR POC Glucometer 259.18640 317.25011 351.19115 Random Glucose Calcium Phosphorus Magnesium Total Bilirubin AST ALT Alkaline Phosphatase Total Protein Albumin 02/27/17 02/27/17 02/27/17 09:55 11:20 11:21 WBC RBC Hgb Hct MCV MCH MCHC RDW Plt Count MPV Neutrophils % Lymphocytes % Monocytes % Eosinophils % Basophils % Sodium 142 Potassium 4.1 Chloride 114 H Carbon Dioxide 14 L Anion Gap 14 BUN 11 D Creatinine 1.0 Creat Clearance w eGFR POC Glucometer 397.29607 374.21592 Random Glucose 331 H* D Calcium 8.0 L Phosphorus Magnesium Total Bilirubin AST ALT Alkaline Phosphatase Total Protein Albumin 02/27/17 02/27/17 02/27/17 12:00 13:00 13:13 WBC RBC Hgb Hct MCV MCH MCHC RDW Plt Count MPV Neutrophils % Lymphocytes % Monocytes % Eosinophils % Basophils % Sodium 146 H Potassium 3.7 Chloride 114 H Carbon Dioxide 17 L D Anion Gap 15 BUN 9 Creatinine 1.0 Creat Clearance w eGFR Y POC Glucometer 371.95674 > 400 Random Glucose 374 H* Calcium 7.7 L Phosphorus Magnesium Total Bilirubin 0.4 AST 12 L D ALT 13 D Alkaline Phosphatase 107 D Total Protein 6.4 D Albumin 3.2 L D 02/27/17 02/27/17 02/27/17 13:59 15:02 16:04 WBC RBC Hgb Hct MCV MCH MCHC RDW Plt Count MPV Neutrophils % Lymphocytes % Monocytes % Eosinophils % Basophils % Sodium Potassium Chloride Carbon Dioxide Anion Gap BUN Creatinine Creat Clearance w eGFR POC Glucometer 347.34282 248.46255 91.74790 Random Glucose Calcium Phosphorus Magnesium Total Bilirubin AST ALT Alkaline Phosphatase Total Protein Albumin 10/02/27/17 02/27/17 17:00 17:00 21:30 WBC RBC Hgb Hct MCV MCH MCHC RDW Plt Count MPV Neutrophils % Lymphocytes % Monocytes % Eosinophils % Basophils % Sodium 144 145 Potassium 3.3 L 3.2 L Chloride 114 H 114 H Carbon Dioxide 17 L 21 D Anion Gap 13 10 BUN 7 D 7 Creatinine 1.0 0.8 Creat Clearance w eGFR > 60 POC Glucometer Random Glucose 134 H D 80 D Calcium 8.1 L 8.1 L Phosphorus 0.8 L* 0.9 L* Magnesium 1.9 Total Bilirubin 0.3 D AST 16 D ALT 14 Alkaline Phosphatase 114 Total Protein 7.0 Albumin 3.3 L Active Medications Generic Name Dose Route Start Last Admin Trade Name Freq PRN Reason Stop Dose Admin Chlorhexidine Gluconate 1 applic 02/26/17 22:00 02/27/17 22:00 Hibiclens For Decolonization - TP 1 applic HS SKINNY Administration Heparin Sodium (Porcine) 5,000 unit 02/26/17 22:00 02/27/17 21:34 Heparin - SQ Not Given BID SKINNY Potassium Chloride/Sodium Chloride 1,000 mls @ 125 mls/hr 02/28/17 02:15 02:12 1/2ns+20meq Kcl IV 125 mls/hr ASDIR SKINNY Administration Insulin Aspart 1 vial 02/28/17 02:00 02/28/17 05:47 Novolog Vial Sliding Scale - SQ 8 units Q4HPO SKINNY Administration Protocol Insulin Detemir 30 units 02/28/17 07:00 02/28/17 06:13 Levemir Vial SQ 30 units AM SKINNY Administration Mupirocin 1 applic 02/26/17 22:00 02/27/17 21:28 Bactroban Ointment (For Decolonization) - NS 03/03/17 21:59 1 applic BID SKINNY Administration Potassium Phos/Sodium Phos 1 packet 02/27/17 22:00 02/28/17 06:13 Phos-Nak Packet - PO 02/28/17 14:01 1 packet TID SKINNY Administration ASSESSMENT/PLAN: 42 yr old woman with hx of noncompliant IDDM presents with vomiting and abdominal pain admitted to ICU for DKA. #DKA with high anion gap metabolic acidosis likely 2/2 medication noncompliance -gap closed, insulin GTT d/c'd -started on BGM ACHS -started on ISS -on 30u levemir daily -1/2 NS @125 -diabetic diet #JOE - likely pre-renal in setting of volume depletion -c/w IVF, monitor renal function #Leucocytosis likley reactive r/o infection -blood cx pending, cxy and u/a pending #Depression -pt denies SI/HI at this time, but has had thoughts of and wanting to -denies intentional attempt to be in DKA, denies plan for intentional self- harm #FEN -1/2NS @ 125 -monitor lytes -DM diet #prophy -Hep SQ 5ku TID -no gi prophy indicated at this time #dispo -admitted to ICU for DKA Visit type - Emergency Visit Emergency Visit: Yes ED Registration Date: 02/26/17 Care time: The patient presented to the Emergency Department on the above date and was hospitalized for further evaluation of their emergent condition. - New Patient This patient is new to me today: No - Critical Care Critical Care patient: No
[2017-02-28] MEDS ORDERED: ONDANSETRON 4 MG/2 ML VIAL ONE (06:32)
[2017-02-28 06:50] LABS: ALBUMIN 2.6 g/dl (3.4-5.0); ALK PHOS 94 U/L (45-117); ANION GAP 12 (8-16); BILIRUBIN,TOTAL 0.5 mg/dL (0.2-1.0); CALCIUM 7.3 mg/dL (8.5-10.1); CO2 19 mmol/L (21-32); CREATININE 0.7 mg/dL (0.55-1.02); GLUCOSE,RANDOM 250 mg/dL (74-106); MAGNESIUM 1.8 mg/dL (1.8-2.4); PHOSPHOROUS 2.5 mg/dL (2.5-4.9); SGOT/AST 15 U/L (15-37); SGPT/ALT 13 U/L (12-78); TOT PROT 5.6 g/dl (6.4-8.2)
[2017-02-28] MEDS ORDERED: PT OWN MED DRAWER 7, Y5N ONE (08:33)
[2017-02-28] MEDS ORDERED: METOCLOPRAMIDE HCL 10 MG TABLET (FP) PO ONE (09:00)
[2017-02-28] MEDS: HEPARIN NA (PORCINE) 5,000 UNITS/ML 1ML VIAL SQ SCH ×2 (09:17→22:19)
[2017-02-28] MEDS ORDERED: HEMOQUE TEST 1 EACH EACH ONE (09:21)
--- NOTE | 2017-02-28 09:49 | EKG ---
Test Reason : Blood Pressure : / mmHG Vent. Rate : 113 BPM Atrial Rate : 113 BPM P-R Int : 152 ms QRS Dur : 094 ms QT Int : 358 ms P-R-T Axes : 061 082 048 degrees QTc Int : 491 ms SINUS TACHYCARDIA POSSIBLE LEFT ATRIAL ENLARGEMENT INCOMPLETE RIGHT BUNDLE BRANCH BLOCK NONSPECIFIC ST AND T WAVE ABNORMALITY ABNORMAL ECG WHEN COMPARED WITH ECG OF 09-MAY-2016 00:30, INCOMPLETE RIGHT BUNDLE BRANCH BLOCK IS NOW PRESENT Confirmed by GEN POLK MD ([id number]) on 02/28/2017 9:49:17 AM Referred By: Confirmed By:GEN POLK MD
[2017-02-28] MEDS: MUPIROCIN 2% TOPICAL OINTMENT FOR DECOLONIZATION NS SCH ×2 (10:00→22:19)
--- NOTE | 2017-02-28 11:27 | PN ---
Teaching Attending Note Name of Resident: Collin Gonzales ATTENDING PHYSICIAN STATEMENT I saw and evaluated the patient. I reviewed the resident's note and discussed the case with the resident. I agree with the resident's findings and plan as documented. SUBJECTIVE: Patient seen and examined in the ICU. Feels a little better. Off IV Insulin infusion. AG better. Intake & Output 02/25/17 02/26/17 02/27/17 02/28/17 23:59 23:59 23:59 23:59 Intake Total 1999 1501 1830 Balance 1999 1501 1830 Weight 138 lb 14.259 oz 138 lb 14.259 oz Last Vital Signs Temp Pulse Resp BP Pulse Ox 98.2 F 68 12 102/65 100 02/28/17 10:00 02/28/17 10:00 02/28/17 10:00 02/28/17 10:00 02/28/17 09:00 Active Medications Chlorhexidine Gluconate (Hibiclens For Decolonization -) 1 applic TP HS [facility] Last Admin: 02/27/17 22:00 Dose: 1 applic Heparin Sodium (Porcine) (Heparin -) 5,000 unit SQ BID [facility] Last Admin: 02/28/17 09:17 Dose: Not Given Potassium Chloride/Sodium Chloride (1/2ns+20meq Kcl) 1,000 mls @ 125 mls/hr IV ASDIR [facility] Last Admin: 02/28/17 02:12 Dose: 125 mls/hr Sodium Chloride (1/2 Normal Saline) 1,000 mls @ 125 mls/hr IV ASDIR [facility] Insulin Aspart (Novolog Vial Sliding Scale -) 1 vial SQ Q4HPO [facility] PRN Reason: Protocol Last Admin: 02/28/17 09:26 Dose: Not Given Insulin Detemir (Levemir Vial) 30 units SQ AM [facility] Last Admin: 02/28/17 06:13 Dose: 30 units Mupirocin (Bactroban Ointment (For Decolonization) -) 1 applic NS BID [facility] Stop: 03/03/17 21:59 Last Admin: 02/27/17 21:28 Dose: 1 applic Potassium Phos/Sodium Phos (Phos-Nak Packet -) 1 packet PO TID [facility] Stop: 02/28/17 14:01 Last Admin: 02/28/17 06:13 Dose: 1 packet Constitutional: Yes: NAD Eyes: Yes: Conjunctiva Clear, EOM Intact, PERRL HENT: Yes: Normocephalic, Other (Dry mucous membranes) Neck: Yes: WNL Cardiovascular: Yes: Regular Rate and Rhythm Respiratory: Yes: Regular, CTA Bilaterally Gastrointestinal: Yes: Normal Bowel Sounds, Soft Extremities: Yes: Cool Peripheral Pulses WNL: Yes Integumentary: Yes: Tattoos Neurological: Yes: Alert, Oriented Labs: Laboratory Results - last 24 hr 02/27/17 02/27/17 02/27/17 00:04 01:16 02:18 Sodium Potassium Chloride Carbon Dioxide Anion Gap BUN Creatinine Creat Clearance w eGFR POC Glucometer 165.68059 154.28482 141.35763 Random Glucose Hemoglobin A1c % Calcium Phosphorus Magnesium Total Bilirubin AST ALT Alkaline Phosphatase Total Protein Albumin 02/27/17 02/27/17 02/27/17 03:00 04:08 05:37 Sodium Potassium Chloride Carbon Dioxide Anion Gap BUN Creatinine Creat Clearance w eGFR POC Glucometer 160.01158 205.93074 70.87637 Random Glucose Hemoglobin A1c % Calcium Phosphorus Magnesium Total Bilirubin AST ALT Alkaline Phosphatase Total Protein Albumin 02/27/17 02/27/17 02/27/17 05:59 07:03 08:35 Sodium Potassium Chloride Carbon Dioxide Anion Gap BUN Creatinine Creat Clearance w eGFR POC Glucometer 259.21811 317.80534 351.96698 Random Glucose Hemoglobin A1c % Calcium Phosphorus Magnesium Total Bilirubin AST ALT Alkaline Phosphatase Total Protein Albumin 02/27/17 02/27/17 02/27/17 09:55 11:20 11:21 Sodium 142 Potassium 4.1 Chloride 114 H Carbon Dioxide 14 L Anion Gap 14 BUN 11 D Creatinine 1.0 Creat Clearance w eGFR POC Glucometer 397.74611 374.46802 Random Glucose 331 H* D Hemoglobin A1c % Calcium 8.0 L Phosphorus Magnesium Total Bilirubin AST ALT Alkaline Phosphatase Total Protein Albumin 02/27/17 02/27/17 02/27/17 12:00 13:00 13:13 Sodium 146 H Potassium 3.7 Chloride 114 H Carbon Dioxide 17 L D Anion Gap 15 BUN 9 Creatinine 1.0 Creat Clearance w eGFR Y POC Glucometer 371.48411 > 400 Random Glucose 374 H* Hemoglobin A1c % Calcium 7.7 L Phosphorus Magnesium Total Bilirubin 0.4 AST 12 L D ALT 13 D Alkaline Phosphatase 107 D Total Protein 6.4 D Albumin 3.2 L D 02/27/17 02/27/17 02/27/17 13:59 15:02 16:04 Sodium Potassium Chloride Carbon Dioxide Anion Gap BUN Creatinine Creat Clearance w eGFR POC Glucometer 347.62309 248.71685 91.91994 Random Glucose Hemoglobin A1c % Calcium Phosphorus Magnesium Total Bilirubin AST ALT Alkaline Phosphatase Total Protein Albumin 02/27/17 02/27/17 02/27/17 17:00 17:00 21:30 Sodium 144 145 Potassium 3.3 L 3.2 L Chloride 114 H 114 H Carbon Dioxide 17 L 21 D Anion Gap 13 10 BUN 7 D 7 Creatinine 1.0 0.8 Creat Clearance w eGFR > 60 POC Glucometer Random Glucose 134 H D 80 D Hemoglobin A1c % Calcium 8.1 L 8.1 L Phosphorus 0.8 L* 0.9 L* Magnesium 1.9 Total Bilirubin 0.3 D AST 16 D ALT 14 Alkaline Phosphatase 114 Total Protein 7.0 Albumin 3.3 L 02/28/17 02/28/17 05:00 05:00 Sodium 142 Potassium 3.7 Chloride 111 H Carbon Dioxide 19 L Anion Gap 12 BUN 5 L D Creatinine 0.7 Creat Clearance w eGFR > 60 POC Glucometer Random Glucose 250 H D Hemoglobin A1c % 12.4 H D Calcium 7.3 L Phosphorus 2.5 D Magnesium 1.8 Total Bilirubin 0.5 D AST 15 ALT 13 Alkaline Phosphatase 94 Total Protein 5.6 L Albumin 2.6 L D Problem List - Problems (1) Diabetic ketoacidosis Code(s): E13.10 - OTH DIABETES MELLITUS WITH KETOACIDOSIS WITHOUT COMA Qualifiers: Diabetes mellitus type: type 1 Diabetes mellitus complication detail: without coma Qualified Code(s): E10.10 - Type 1 diabetes mellitus with ketoacidosis without coma; E10.10 - Type 1 diabetes mellitus with ketoacidosis without coma; E10.10 - Type 1 diabetes mellitus with ketoacidosis without coma; E10.10 - Type 1 diabetes mellitus with ketoacidosis without coma Assessment/Plan Continue IVF W/O Glucose SQ Insulin coverage O2 as needed Check BMP to assure AG remains closed and Bicarb is not dropping Advance diet as tolerated Floor Dr Jacinto Critical care time spent in reviewing chart, evaluating patient and formulating plan - 35 minutes.
[2017-02-28] MEDS ORDERED: SODIUM CHLORIDE 0.45% 1,000 ML IV SCH (11:30)
--- NOTE | 2017-02-28 12:01 | PN ---
Physical Exam: SUBJECTIVE: 42 yo F with h/o IDDM, DKA, trigeminal neuralgia, Gallstones, pancreatitis, IBS , anxiety, and depression who initially presented to ED with decreased appetite , abdominal pain, increased urinary frequency, SOB, fatigue, and non biliary/ non bloody emesis of 1 day duration. Takes home Lantus 40 U QD, although she is supposed to take 40 U BID. Does not check BS regularly. Reports that she has had h/o allergic reaction to insulin pump. ED course was notable for glucose of 706, HCO3 14, and 2 + Urine ketones. She was given Insulin IVPB 5 U and Insulin gtt .1 mcg /kg/ hr. In ICU patient started on Insulin gtt .1 mcg/kg/hr. On current presentation endorses nausea. States that the previous morning 4 mg Zofran was insufficient. Pt. given Reglan for nausea. Denies fevers/chills,, chest pain, SOB, dysuria, lightheadedness, abdominal pain, constipation/ diarrhea. Patient is hemodynamically stable and afebrile. No complaints or concerns. This AM anion gap closed at 12 and BS 250 at 0500. She received 5 U insulin based on SS at 0547. OBJECTIVE: Vital Signs Period Temp Pulse Resp BP Sys/Crisostomo Pulse Ox Last 24 Hr 98.2 F-99.2 F 67-96 12-22 84-147/56-82 100-100 GENERAL: Awake, alert, and fully oriented, in no acute distress. HEAD: Normal with no signs of trauma. EYES: sclera anicteric, conjunctiva clear. EARS, NOSE, THROAT: Ears normal, nares patent, oropharynx clear without exudates. Moist mucous membranes. NECK: No JVD, or masses. LUNGS: Breath sounds equal, clear to auscultation bilaterally. No wheezes, and no crackles. No accessory muscle use. HEART: Regular rate and rhythm, normal S1 and S2 without murmur, rub or gallop. ABDOMEN: Soft, nontender, not distended, normoactive bowel sounds, no guarding, no rebound, no masses. No hepatomegaly or splenomegaly. MUSCULOSKELETAL: Normal range of motion at all joints. No bony deformities or tenderness. No CVA tenderness. UPPER EXTREMITIES: 2+ pulses, warm, well-perfused. No cyanosis. No clubbing. Cap refill <2 seconds. No peripheral edema. LOWER EXTREMITIES: 2+ pulses, warm, well-perfused. No calf tenderness. No peripheral edema. PSYCHIATRIC: Cooperative. Good eye contact. Appropriate mood and affect. SKIN: Warm, dry, normal turgor, no rashes or lesions noted. Laboratory Results - last 24 hr 02/27/17 02/27/17 02/27/17 00:04 01:16 02:18 Sodium Potassium Chloride Carbon Dioxide Anion Gap BUN Creatinine Creat Clearance w eGFR POC Glucometer 165.00131 154.00034 141.79083 Random Glucose Hemoglobin A1c % Calcium Phosphorus Magnesium Total Bilirubin AST ALT Alkaline Phosphatase Total Protein Albumin 02/27/17 02/27/17 02/27/17 03:00 04:08 05:37 Sodium Potassium Chloride Carbon Dioxide Anion Gap BUN Creatinine Creat Clearance w eGFR POC Glucometer 160.91626 205.77662 70.98459 Random Glucose Hemoglobin A1c % Calcium Phosphorus Magnesium Total Bilirubin AST ALT Alkaline Phosphatase Total Protein Albumin 02/27/17 02/27/17 02/27/17 05:59 07:03 08:35 Sodium Potassium Chloride Carbon Dioxide Anion Gap BUN Creatinine Creat Clearance w eGFR POC Glucometer 259.87900 317.10758 351.69052 Random Glucose Hemoglobin A1c % Calcium Phosphorus Magnesium Total Bilirubin AST ALT Alkaline Phosphatase Total Protein Albumin 02/27/17 02/27/17 02/27/17 09:55 11:21 12:00 Sodium Potassium Chloride Carbon Dioxide Anion Gap BUN Creatinine Creat Clearance w eGFR POC Glucometer 397.02833 374.26062 371.41781 Random Glucose Hemoglobin A1c % Calcium Phosphorus Magnesium Total Bilirubin AST ALT Alkaline Phosphatase Total Protein Albumin 02/27/17 02/27/17 02/27/17 13:00 13:13 13:59 Sodium 146 H Potassium 3.7 Chloride 114 H Carbon Dioxide 17 L D Anion Gap 15 BUN 9 Creatinine 1.0 Creat Clearance w eGFR Y POC Glucometer > 400 347.87445 Random Glucose 374 H* Hemoglobin A1c % Calcium 7.7 L Phosphorus Magnesium Total Bilirubin 0.4 AST 12 L D ALT 13 D Alkaline Phosphatase 107 D Total Protein 6.4 D Albumin 3.2 L D 02/27/17 02/27/17 02/27/17 15:02 16:04 17:00 Sodium 144 Potassium 3.3 L Chloride 114 H Carbon Dioxide 17 L Anion Gap 13 BUN 7 D Creatinine 1.0 Creat Clearance w eGFR > 60 POC Glucometer 248.90330 91.07878 Random Glucose 134 H D Hemoglobin A1c % Calcium 8.1 L Phosphorus Magnesium Total Bilirubin 0.3 D AST 16 D ALT 14 Alkaline Phosphatase 114 Total Protein 7.0 Albumin 3.3 L 02/27/17 02/27/17 02/28/17 17:00 21:30 05:00 Sodium 145 142 Potassium 3.2 L 3.7 Chloride 114 H 111 H Carbon Dioxide 21 D 19 L Anion Gap 10 12 BUN 7 5 L D Creatinine 0.8 0.7 Creat Clearance w eGFR > 60 POC Glucometer Random Glucose 80 D 250 H D Hemoglobin A1c % Calcium 8.1 L 7.3 L Phosphorus 0.8 L* 0.9 L* 2.5 D Magnesium 1.9 1.8 Total Bilirubin 0.5 D AST 15 ALT 13 Alkaline Phosphatase 94 Total Protein 5.6 L Albumin 2.6 L D 02/28/17 05:00 Sodium Potassium Chloride Carbon Dioxide Anion Gap BUN Creatinine Creat Clearance w eGFR POC Glucometer Random Glucose Hemoglobin A1c % 12.4 H D Calcium Phosphorus Magnesium Total Bilirubin AST ALT Alkaline Phosphatase Total Protein Albumin Active Medications Generic Name Dose Route Start Last Admin Trade Name Freq PRN Reason Stop Dose Admin Chlorhexidine Gluconate 1 applic 02/26/17 22:00 02/27/17 22:00 Hibiclens For Decolonization - TP 1 applic HS [facility] Administration Heparin Sodium (Porcine) 5,000 unit 02/26/17 22:00 02/28/17 09:17 Heparin - SQ Not Given BID SKINNY Potassium Chloride/Sodium Chloride 1,000 mls @ 125 mls/hr 02/28/17 02:15 02:12 1/2ns+20meq Kcl IV 125 mls/hr ASDIR SKINNY Administration Sodium Chloride 1,000 mls @ 125 mls/hr 02/28/17 11:30 1/2 Normal Saline IV ASDIR [facility] Insulin Aspart 1 vial 02/28/17 02:00 02/28/17 09:26 Novolog Vial Sliding Scale - SQ Not Given Q4HPO [facility] Protocol Insulin Detemir 30 units 02/28/17 07:00 02/28/17 06:13 Levemir Vial SQ 30 units AM SKINNY Administration Mupirocin 1 applic 02/26/17 22:00 02/27/17 21:28 Bactroban Ointment (For Decolonization) - NS 03/03/17 21:59 1 applic BID SKINNY Administration Potassium Phos/Sodium Phos 1 packet 02/27/17 22:00 02/28/17 06:13 Phos-Nak Packet - PO 02/28/17 14:01 1 packet TID SKINNY Administration ASSESSMENT/PLAN: 42 yo F with h/o IDDM, DKA, trigeminal neuralgia, Gallstones, pancreatitis, IBS , anxiety, and depression who was admitted to ICU for management of DKA. Neuro: A&O x3 No focal neurological deficits Psych: H/o anxiety and depression Home Alprazolam 0.5 mg PO PRN Denies suicidal and homicidal ideations, or plan to attempt self harm at this time Has h/o of thoughths of and self harm Plan: -Monitor for s/s of depression/anxiety Caridac: noncontributory Pulm: noncontributory CXR (02/26): No acute cardiopulmonry changes Renal: JOE (Resolved) -Most likely prerenal in setting of volume depletion Cr 1.6-->1.0 Plan: - Start 1/2 NS 125 ml/Hr - Q2 BMP Endocrine: DKA with high anion gap metabolic acidosis Most likely 2/2 medication non compliance Low suspicion for infectious etiology ( see below) 5 U insulin ( 02/26) BS 238-->374 ( 02/27)---> 250, Anion Gap 14--> 15 ( 02/27)--> 12 Plan: - D/C Insulin gtt 0.1U/kg/hr until gap is closed, reduce to 0.05 U/kg/hr when BS < 250. - Start 1/2 NS @125cc/hr NS, switch to d5 ns if BGM qhr are <250 and gap not closed - Cont Sub Q SS Insulin-anion gap closed - Diabetic diet - Keep BS 150-200 - NPO - Replete K+ if potassium 3.3-5.3 - BMP Q2 Infectious Disease: 2/4 SIRS Criteria : WBC 14.2 leukocytosis and tachycardic. Afebrile. Absent cough and dysuria. Physical exam benign. Infectious vs Reactive WBC 14.2-->13.4 Lactic acid 1.5 UA Neg nitrites, and leuk esterase CXR: No infiltrates Plan: - Blood cx pending - Defer antibiotic treatment FEN: 1/2NS 125ml/hr, K+ 3.3-5.3, diabetic diet PPX: Heparin 5000U SQ BID Dispo: Med/Surg Transfer Visit type - Emergency Visit Emergency Visit: Yes ED Registration Date: 02/26/17 Care time: The patient presented to the Emergency Department on the above date and was hospitalized for further evaluation of their emergent condition. - New Patient This patient is new to me today: No - Critical Care Critical Care patient: Yes Total Critical Care Time (in minutes): 35 Critical Care Statement: The care of this patient involved high complexity decision making to prevent further life threatening deterioration of the patient 's condition and/or to evaluate & treat vital organ system(s) failure or risk of failure.
--- NOTE | 2017-02-28 14:02 | PN ---
Teaching Attending Note Name of Resident: Tian Andujar ATTENDING PHYSICIAN STATEMENT I saw and evaluated the patient. I reviewed the resident's note and discussed the case with the resident. I agree with the resident's findings and plan as documented. SUBJECTIVE:c/o nausea this AM when had BGM 60. drank some broth and now feels better. states abdominal pain resolved. denies Cp, SOB, fever, chills, C/D OBJECTIVE: Last Vital Signs Temp Pulse Resp BP Pulse Ox 98.5 F 97 H 16 94/82 100 02/28/17 12:44 02/28/17 12:44 02/28/17 12:44 02/28/17 12:44 02/28/17 09:00 General NAD Abdomen soft NT/ND no suprapubic tenderness or distention ASSESSMENT AND PLAN: 42yo F with PMH DM1, trigeminal neuralgia, IBS and depression presented with sudden onset of nausea and vomiting this AM and found to be in DKA 1. DKA- likely due to non-compliance and dehydration. AG closed last night. started on liquids and given lantus 30 units this AM. will advance to diabetic diet. monitor BGM ACHS. titrate to optimize control. will d/c IVF once tolerating diet. 2. Pseudohyponatremia- resolved 3. SIRS likely due to DKA- afebrile. UA and CXR negative for acute infection. hold abx as no clear source of infection. 4. JOE- due to dehydration. resolved. avoid nephrotoxic agents. 5. Hyperkalemia- resolved 6. Hypophosphatemia- Kphos 7. DVT ppx- hep sq 8. stable for transfer to medical floors The care of this patient involved high complexity decision making to prevent further life threatening deterioration of the patient's condition and/or to evaluate & treat vital organ system(s) failure or risk of failure. 38 minutes
[2017-02-28 17:43] LABS: ALBUMIN 3.3 g/dl (3.4-5.0); ALK PHOS 115 U/L (45-117); ANION GAP 10 (8-16); BILIRUBIN,TOTAL 0.3 mg/dL (0.2-1.0); CALCIUM 7.8 mg/dL (8.5-10.1); CO2 24 mmol/L (21-32); CREATININE 0.7 mg/dL (0.55-1.02); GLUCOSE,RANDOM 173 mg/dL (74-106); SGOT/AST 19 U/L (15-37); SGPT/ALT 17 U/L (12-78); TOT PROT 6.7 g/dl (6.4-8.2)
[2017-02-28] MEDS ORDERED: POTASSIUM CHLORIDE ORAL LIQUID 20 MEQ/15 ML PO ONE (17:49)
[2017-02-28] MEDS: CHLORHEXIDINE GLUCONATE 4% CLEANSER FOR DECOLONIZATION TP SCH (22:19)
[2017-03-01 06:25] LABS: ALBUMIN 2.7 g/dl (3.4-5.0); ALK PHOS 111 U/L (45-117); ANION GAP 9 (8-16); BILIRUBIN,TOTAL 0.5 mg/dL (0.2-1.0); CALCIUM 7.8 mg/dL (8.5-10.1); CO2 23 mmol/L (21-32); CREATININE 0.5 mg/dL (0.55-1.02); GLUCOSE,RANDOM 285 mg/dL (74-106); MAGNESIUM 1.9 mg/dL (1.8-2.4); PHOSPHOROUS 2.7 mg/dL (2.5-4.9); SGOT/AST 11 U/L (15-37); SGPT/ALT 13 U/L (12-78); TOT PROT 5.8 g/dl (6.4-8.2)
[2017-03-01] MEDS: INSULIN SLIDING SCALE (NOVOLOG) 1 VIAL SQ SCH ×3 (07:07→11:11)
[2017-03-01] MEDS: INSULIN DETEMIR 100 UNITS/ML MDV SQ SCH (07:08)
[2017-03-01] MEDS: HEPARIN NA (PORCINE) 5,000 UNITS/ML 1ML VIAL SQ SCH (11:02)
[2017-03-01] MEDS: MUPIROCIN 2% TOPICAL OINTMENT FOR DECOLONIZATION NS SCH (11:18)
[2017-03-01 11:39] VITALS: TEMP 98.9
[2017-03-01 12:13] VITALS: BP 111/66; PULSE 80
--- NOTE | 2017-03-01 12:19 | DS ---
Physical Exam: SUBJECTIVE: Patient seen and examined. appetite improvd. no longer nauseated. denies Cp, SOB, fever, chills, N/V/C/D OBJECTIVE: Vital Signs Period Temp Pulse Resp BP Sys/Crisostomo Pulse Ox Last 24 Hr 98.5 F-99.3 F 78-98 14-20 94-117/66-82 PHYSICAL EXAM GENERAL: The patient is awake, alert, and fully oriented, in no acute distress. HEAD: Normal with no signs of trauma. EYES: PERRL, extraocular movements intact, sclera anicteric, conjunctiva clear. ENT: Ears normal, nares patent, oropharynx clear without exudates, moist mucous membranes. NECK: Trachea midline, full range of motion, supple. LUNGS: Breath sounds equal, clear to auscultation bilaterally, no wheezes, no crackles, no accessory muscle use. HEART: Regular rate and rhythm, S1, S2 without murmur, rub or gallop. ABDOMEN: Soft, nontender, nondistended, normoactive bowel sounds, no guarding, no rebound, no hepatosplenomegaly, no masses. EXTREMITIES: 2+ pulses, warm, well-perfused, no edema. NEUROLOGICAL: Cranial nerves II through XII grossly intact. Normal speech, gait not observed. PSYCH: Normal mood, normal affect. SKIN: Warm, dry, normal turgor, no rashes or lesions noted. LABS Laboratory Results - last 24 hr 02/28/17 02/28/17 02/28/17 05:00 16:30 22:11 WBC 7.9 D RBC 3.92 Hgb 10.3 L Hct 31.3 L MCV 79.8 L MCH 26.2 MCHC 32.8 RDW 16.9 H Plt Count 335 MPV 8.0 Sodium 141 Potassium 3.4 L Chloride 107 Carbon Dioxide 24 D Anion Gap 10 BUN 5 L Creatinine 0.7 Creat Clearance w eGFR > 60 POC Glucometer [phone] Random Glucose 173 H D Calcium 7.8 L Phosphorus Magnesium Total Bilirubin 0.3 D AST 19 D ALT 17 D Alkaline Phosphatase 115 D Total Protein 6.7 Albumin 3.3 L D 03/01/17 05:45 WBC RBC Hgb Hct MCV MCH MCHC RDW Plt Count MPV Sodium 140 Potassium 3.8 Chloride 108 H Carbon Dioxide 23 Anion Gap 9 BUN 5 L Creatinine 0.5 L D Creat Clearance w eGFR > 60 POC Glucometer Random Glucose 285 H D Calcium 7.8 L Phosphorus 2.7 Magnesium 1.9 Total Bilirubin 0.5 D AST 11 L D ALT 13 D Alkaline Phosphatase 111 Total Protein 5.8 L Albumin 2.7 L HOSPITAL COURSE: Date of Admission:02/26/17 Date of Discharge: 03/01/17 Admitting Diagnosis: DKA, hypophosphatemia, Hypokalemia, JOE Pre hospital course 42yo F with PMH DM1, trigeminal neuralgia, IBS and depression presented with sudden onset of nausea and vomiting this AM. water only no food or bile or blood. states she ate chicken she bought from a local restaurant last night and had 2 hard liquor beverages (for her birthday) and has some abdominal discomfort but was able to go to bed. only other assoc symptoms of 3 loose BM this AM and urinary frequency. was in normal state of health for the previous week. no other family members were sick from eating the food. states she has had difficulty complying with insulin regimen and only administers lantus 40 units once a day and not twice a day as prescribed. states she informed her PMD of this and reigmen was not changed. was on insulin pump twice in the past but had allergic reaction. (?adhesive tape). also admits she does not check her sugars at all. denies CP, SOB, fever, chills, cough, dysuria, hematuria Subsequent hospital course Admitted to MICU for close monitoring. endo consulted. Insulin ggt was started. pt was monitored per DKA protocol. AG closed. insulin was adjusted to optimize sugar control. electrolytes repleted as needed. JOE resolved. d/c home. D/c on levemir 32 units AM and iss as instructed by endo. Minutes to complete discharge: 40 Discharge Summary Reason For Visit: DKA Current Active Problems Diabetic ketoacidosis (Acute) Hydrosalpinx (Acute) Pancreatitis (Acute) Condition: Good - Instructions Diet, Activity, Other Instructions: You were admitted to the hospital because you were found to be in DKA (diabetic ketoacidosis) because of your uncontrolled sugars. It is very important yo be compliant with your insulin and checking your sugars regularly. Your A1c here was 12.5 which is very poorly controlled and puts you at increased risk of loosing your sight, early cardiac disease, kidney failure and infections. By taking your insulin and watching what you eat will lower your risk for these complications. Continue long acting insulin, Levemir 32 units in the morning when you first wake up. And then check your sugar prior to each meal and inject the number of units of insulin as instructed below. Document what sugars you get and take these to follow up with either your primary care doctor on milieu technician you saw here on Friday. Discuss with them about going back on the insulin pump Sugar # units of insulin <150 0 151-200 4 201-250 7 251-300 8 301-350 9 351-400 10 >401 12 and call your primary care doctor If you experience and symptoms of low sugar eat a piece of candy or juice and check your sugar. If your symptoms worsen return to the ER. Referrals: Ariel Schaeffer MD [Staff Physician] - Jeff Domingo MD [Staff Physician] - Disposition: HOME - Home Medications Comprehensive Discharge Medication List: Ambulatory Orders Alprazolam [Xanax] 0.5 mg PO DAILY PRN 01/19/17 Insulin (Levemir) [Levemir Vial] 32 units SQ AM #1 ml 03/01/17 Insulin Aspart [Novolog] 100 unit SQ ASDIR #1 pkg 03/01/17 This patient is new to me today: No Emergency Visit: Yes ED Registration Date: 02/26/17 Care time: The patient presented to the Emergency Department on the above date and was hospitalized for further evaluation of their emergent condition. Critical Care patient: No - Discharge Referral Referred to [facility] No
== END 2017-03-01 13:54 | disposition home or self-care (01) | DRG 638 ==
LOC: JER 13:09 → JERBED 17:03 → JICU 18:41 → J2W 02-28 20:02
PROVIDERS: ADMIT Internal Medicine; ATTEND Internal Medicine
DX: E10.10 Type 1 diabetes mellitus with ketoacidosis without coma (principal); E87.1 Hypo-osmolality and hyponatremia; N17.9 Acute kidney failure, unspecified; E87.2 Acidosis; R65.10 Systemic inflammatory response syndrome (SIRS) of non-infectious origin without acute organ dysfunction; K58.9 Irritable bowel syndrome, unspecified; F41.9 Anxiety disorder, unspecified; G50.0 Trigeminal neuralgia; F32.9 Major depressive disorder, single episode, unspecified; E86.0 Dehydration; E87.5 Hyperkalemia; K64.8 Other hemorrhoids; G43.909 Migraine, unspecified, not intractable, without status migrainosus; M51.26 Other intervertebral disc displacement, lumbar region; M54.31 Sciatica, right side; Z91.14 Patient's other noncompliance with medication regimen; D72.829 Elevated white blood cell count, unspecified; E83.39 Other disorders of phosphorus metabolism
CPT/HCPCS: 36415; 71010-TC; 80048; 80053; 81003; 81015; 82009; 83036; 83605; 83735; 84100; 84703; 85025; 85027; 87040; 87086; 93005; 93010; 99285-25; J1644; J3480

== ENCOUNTER 2018-02-04 00:25 | Emergency (ER) | payer OTHER ==
[2018-02-04 00:43] VITALS: TEMP 98; BMI 25.2
[2018-02-04] MEDS ORDERED: SODIUM CHLORIDE 1,000 ML IV STA ×2 (01:31→07:36)
--- NOTE | 2018-02-04 01:46 | PDOC ---
History of Present Illness - General Chief Complaint: Pain Stated Complaint: L SIDED ABD PAIN Time Seen by Provider: 02/04/18 00:46 - History of Present Illness Initial Comments: 02/04/18 02:06 Patient is a 42 year old female with a PMH of IDDM (w/associated gastroparesis and chronic pancreatitis), DKA, cholelithiasis, IBS, Sciatica, and Herniated Discs who presents to our ED c/o 2 day h/o abdominal pain. Pain is left sided, intermittent, 10/10 and radiates to her back. Endorses 4-5 episodes of NBNB emesis today which prompted her visit to the ED. Three loose bowel movements today. Allergy: Azithromycin Social: denies toxic habits PMD: Dr. Cotto Past History - Past Medical History Allergies/Adverse Reactions: Allergies Allergy/AdvReac Type Severity Reaction Status Date / Time azithromycin [From Zithromax] Allergy Verified 02/04/18 00:36 Home Medications: Ambulatory Orders Alprazolam [Xanax] 0.5 mg PO DAILY PRN 01/19/17 Amoxicillin - [Amoxicillin 875mg Tablet -] 875 mg PO ASDIR 02/04/18 Cholecalciferol (Vitamin D3) [Vitamin D3 -] 400 unit PO WEEKLY 02/04/18 Ferrous Sulfate 325 mg PO TID 02/04/18 Insulin Lispro [Humalog] 7 unit SQ ASDIR 02/04/18 Insulin Lispro [Humalog] 20 unit SQ AM 02/04/18 Lipase/Protease/Amylase [Yue Rea 36,000 Units Capsule] 1 each PO TID 02/04/18 Anemia: No Asthma: No Cancer: No Cardiac Disorders: No CVA: No COPD: No CHF: No Dementia: No Diabetes: Yes (IDDM) GI Disorders: Yes (IBS) Disorders: Yes (severe gastroparesis, pancreatitis w/hospitalization at [facility]) HTN: No Hypercholesterolemia: No Liver Disease: No Psychiatric Problems: Yes (DEPRESSION,ANXIETY) Seizures: No Thyroid Disease: No - Surgical History Abdominal Surgery: Yes (RIGHT ABD LIPOMA) Appendectomy: No Cardiac Surgery: No Cholecystectomy: No Lung Surgery: No Neurologic Surgery: No Orthopedic Surgery: No - Reproductive History Tubal Ligation: Yes - Immunization History Td Vaccination: Yes TDAP Vaccination: Yes Immunization Up to Date: No - Suicide/Smoking/Psychosocial Hx Smoking Status: No Smoking History: Never smoked Have you smoked in the past 12 months: No Number of Cigarettes Smoked Daily: 0 Hx Alcohol Use: No Drug/Substance Use Hx: No Substance Use Type: None Hx Substance Use Treatment: No Review of Systems - Review of Systems Constitutional: No: Chills, Fever Respiratory: No: Cough, Shortness of Breath Cardiac (ROS): No: Chest Pain, Edema ABD/GI: Yes: Diarrhea, Nausea, Vomiting, Abdominal cramping. No: Constipated : No: Burning, Dysuria *Physical Exam - Vital Signs Last Vital Signs Temp Pulse Resp BP Pulse Ox 98.0 F 98 H 18 91/57 L 97 02/04/18 00:34 02/04/18 00:34 02/04/18 00:34 02/04/18 00:34 02/04/18 00:34 - Physical Exam General Appearance: Yes: Nourished, Appropriately Dressed HEENT: positive: Normal Voice, Hearing Grossly Normal Neck: positive: Trachea midline, Supple Respiratory/Chest: positive: Lungs Clear, Normal Breath Sounds. negative: Labored Respiration, Rales, Rhonchi, Stridor, Wheezing Cardiovascular: positive: S1, S2. negative: Edema, JVD Gastrointestinal/Abdominal: positive: Soft, Tenderness (Epigastric and RUQ TTP) . negative: Guarding, Rebound, Hernia, Mass Musculoskeletal: positive: CVA Tenderness (L). negative: CVA Tenderness (R) Extremity: positive: Normal Capillary Refill, Normal Inspection Integumentary: positive: Normal Color, Dry, Warm ED Treatment Course - LABORATORY CBC & Chemistry Diagram: 02/04/18 01:45 02/04/18 01:45 Medical Decision Making - Medical Decision Making 02/04/18 04:18 42 year old female with abdominal pain. PMH significant for cholelithiasis w/ suggestion of elective cholecystectomy and DKA. Will obtain GB U/S to r/o acute cholecystitis, CBC, CMP, Lipase as well as Acetone and VBG. Reassess. 02/04/18 06:16 RUQ U/S negative for acute cholecystitis No leukocytosis Acetone 2+, BS 300's, Clinical suspicion for chronic pancreatitis w/o elevated Lipase. Will hydrate and repeat lactic acid, serum acetone 02/04/18 06:19 Acetone 2+ -- possibly 2/2 to gastritis PO challenge Lactic Acid pending 02/04/18 06:33 Repeat Lactic Acid 1.0 Patient tolerating PO intake. Ambulatory around unit. Will discharge home with return precautions, PMD follow-up. Clinical Impression: Gastritis *DC/Admit/Observation/Transfer Diagnosis at time of Disposition: Gastritis - Discharge Dispostion Disposition: HOME Condition at time of disposition: Good Decision to Admit order: No - Referrals Referrals: Zain Cotto MD [Primary Care Provider] - - Patient Instructions Additional Instructions: Please follow-up with Dr. Cotto in the next 2 days. Advance your diet as tolerated and drink plenty of water. Continue to follow your prescribed insulin regimen. Return to the Emergency Department for any new/worsening/concerning symptoms. - Post Discharge Activity
[2018-02-04 02:00] LABS: BASO % 0.7 % (0-2.0); HEMATOCRIT 34.7 % (32.4-45.2); HEMOGLOBIN 11.2 GM/dL (10.7-15.3); LYMPH % 29.8 % (8-40); MCH 25.5 pg (25.7-33.7); MCHC 32.3 g/dl (32.0-36.0); MEAN CELL VOLUME 79.1 fl (80-96); MEAN PLT VOLUME 7.9 fl (7.5-11.1); MONO % 9.7 % (3.8-10.2); NEUT % 58.8 % (42.8-82.8); PLATELET COUNT 443 K/MM3 (134-434); RBC 4.39 M/mm3 (3.60-5.2); RDW 17.5 % (11.6-15.6); WHITE BLOOD COUNT 6.5 K/mm3 (4.0-10.0)
[2018-02-04 02:28] LABS: ALBUMIN 3.5 g/dl (3.4-5.0); ALK PHOS 124 U/L (45-117); ANION GAP 7 MMOL/L (8-16); BILIRUBIN,TOTAL 0.2 mg/dL (0.2-1); BLOOD UREA NITROGEN 15 mg/dL (7-18); CALCIUM 8.5 mg/dL (8.5-10.1); CHLORIDE 101 mmol/L (98-107); CO2 26 mmol/L (21-32); CREATININE 1.1 mg/dL (0.55-1.3); LIPASE 154 U/L (73-393); SGOT/AST 16 U/L (15-37); SGPT/ALT 15 U/L (13-61); SODIUM 134 mmol/L (136-145); TOT PROT 7.7 g/dl (6.4-8.2)
[2018-02-04 02:30] LABS: GLUCOSE,RANDOM 308 mg/dL (74-106)
[2018-02-04] MEDS ORDERED: SODIUM CHLORIDE 0.9% 500 ML INFUS.BAG IV ONE (02:41)
[2018-02-04] MEDS ORDERED: FAMOTIDINE 20 MG/50 ML IVPB 20 MG/50 ML MG IVPB ONE ×2 (02:52→03:30)
[2018-02-04] MEDS ORDERED: ACETAMINOPHEN 1000 MG/100 ML VIAL (NON FORMULARY) IVPB ONE (02:52)
[2018-02-04] MEDS ORDERED: ONDANSETRON 4 MG/2 ML VIAL IVPB ONE (02:52)
[2018-02-04] MEDS ORDERED: ACETAMINOPHEN INJECTION 100 ML IVPB ONE (03:29)
[2018-02-04] MEDS ORDERED: ONDANSETRON 4 MG/2 ML VIAL ONE (03:29)
--- NOTE | 2018-02-04 03:52 | PDOC ---
Attending Attestation - Resident Resident Name: Theresa Barker - ED Attending Attestation I have performed the following: I have examined & evaluated the patient, The case was reviewed & discussed with the resident, I agree w/resident's findings & plan, Exceptions are as noted - HPI HPI: 02/04/18 03:50 The patient is a 42 year old female, with a significant past medical history of IDDM (admitted for DKA 02/2017), gastroparesis, pancreatitis, gallstones, IBS, anxiety, who presents to the emergency department with 2 days of worsening abdominal pain. She describes her abdominal pain as diffuse and radiating to the left side of her back with associated nausea and vomiting. The patient also endorses 4 episodes of loose bowel movements. She states that the pain is identical to her prior episodes of pancreatitis. She denies recent fevers, chills, headache or dizziness. She denies recent dysuria, frequency, urgency or hematuria. She denies recent chest pain or shortness of breath. Allergies: Azithromycin. Social history: Nonsmoker. Denies EtOH use and recreational drug use. Primary Care Physician: Dr. Cotto " - Physicial Exam PE: 02/04/18 03:51 GENERAL: Awake, alert, and fully oriented, in no acute distress. HEAD: No signs of trauma EYES: PERRLA, EOMI, sclera anicteric, conjunctiva clear ENT: Auricles normal inspection, hearing grossly normal, nares patent, oropharynx clear without exudates. Moist mucosa NECK: Nontender, no stepoffs, Normal ROM, supple, no lymphadenopathy, JVD, or masses LUNGS: Breath sounds equal, clear to auscultation bilaterally. No wheezes, and no crackles HEART: Regular rate and rhythm, normal S1 and S2, no murmurs, rubs or gallops ABDOMEN: + epigastric TTP, normoactive bowel sounds. No guarding, no rebound. No masses EXTREMITIES: Normal range of motion, no edema. No clubbing or cyanosis. No cords, erythema, or tenderness NEUROLOGICAL: Cranial nerves II through XII intact. 5/5 strength and sensation in all extremities, Normal speech, normal gait, normal cerebellar function SKIN: Warm, Dry, normal turgor, no rashes or lesions noted. - Medical Decision Making 02/04/18 03:51 42 F with epigastric pain, N+V+D. Will evaluate for pancreatitis given prior history. Will also r/o DKA, though pt is very well appearing. Pt with negative boland's but will evaluate for gallstones. - Labs, lipase, acetone - UA - RUQ sono - IVF, GI cocktail 02/04/18 04:23 Labs notable for lactate 2.5. Acetone 2+. However, pt with anion gap of 7. Lipase negative Will recheck lactate and acetone after IVF. 02/04/18 06:39 Pt reassessed - Now tolerating PO. No longer having abdominal pain. Labs rechecked - pt with persistently high acetone and fingerstick, though lactate has cleared. Will administer 5u insulin and recheck. Pt signed out to oncoming attending at 7am, pending repeat labs and re- evaluation.
[2018-02-04 05:58] LABS: URINE APPEARANCE CLEAR; URINE BILIRUBIN NEGATIVE (<2.0 mg/dL); URINE COLOR LTYELLOW; URINE GLUCOSE (UA) 3+ (NEGATIVE); URINE KETONE 1+ (NEGATIVE); URINE LEUK ESTERASE NEGATIVE (NEGATIVE); URINE NITRITE NEGATIVE (NEGATIVE); URINE PROTEIN NEGATIVE (NEGATIVE); URINE UROBILINOGEN NEGATIVE mg/dL (0.2-1.0)
[2018-02-04 06:05] LABS: EPI CELLS RARE /HPF (FEW); URINE MUCUS RARE
[2018-02-04] MEDS ORDERED: INSULIN REGULAR HUMAN 100 UNITS/ML *VIAL IVPUSH ONE ×2 (06:45→07:36)
[2018-02-04] MEDS ORDERED: INSULIN REGULAR HUMAN 100 UNITS/ML *VIAL ONE ×2 (06:48→07:40)
--- NOTE | 2018-02-04 09:33 | PDOC ---
*Physical Exam - Vital Signs Last Vital Signs Temp Pulse Resp BP Pulse Ox 98.0 F 91 H 18 111/57 L 100 02/04/18 06:24 02/04/18 06:24 02/04/18 06:24 02/04/18 06:24 02/04/18 06:24 ED Treatment Course - LABORATORY CBC & Chemistry Diagram: 02/04/18 01:45 02/04/18 01:45 - ADDITIONAL ORDERS Additional order review: Laboratory Results 02/04/18 02/04/18 02/04/18 07:34 06:43 05:40 Sodium Potassium Chloride Carbon Dioxide Anion Gap BUN Creatinine Creat Clearance w eGFR POC Glucometer [phone] Random Glucose Lactic Acid Calcium Total Bilirubin AST ALT Alkaline Phosphatase Creatine Kinase Troponin I Total Protein Albumin Lipase Urine Color Urine Appearance Urine pH Ur Specific [place] Urine Protein Urine Glucose (UA) Urine Ketones Urine Blood Urine Nitrite Urine Bilirubin Urine Urobilinogen Ur Leukocyte Esterase Urine WBC (Auto) Urine RBC (Auto) Ur Epithelial Cells Urine Mucus Urine HCG, Qual Acetone, Qual Positive moderate 2+ H 02/04/18 02/04/18 02/04/18 05:40 05:40 05:40 Sodium Potassium Chloride Carbon Dioxide Anion Gap BUN Creatinine Creat Clearance w eGFR POC Glucometer Random Glucose Lactic Acid 1.0 Calcium Total Bilirubin AST ALT Alkaline Phosphatase Creatine Kinase Troponin I Total Protein Albumin Lipase Urine Color Ltyellow Urine Appearance Clear Urine pH 5.0 Ur Specific [place] 1.030 Urine Protein Negative Urine Glucose (UA) 3+ H Urine Ketones 1+ H Urine Blood 1+ H Urine Nitrite Negative Urine Bilirubin Negative Urine Urobilinogen Negative Ur Leukocyte Esterase Negative Urine WBC (Auto) <1 Urine RBC (Auto) 8 Ur Epithelial Cells Rare Urine Mucus Rare Urine HCG, Qual Negative Acetone, Qual 02/04/18 02/04/18 02/04/18 01:45 01:45 01:45 Sodium 134 L Potassium 4.0 Chloride 101 Carbon Dioxide 26 Anion Gap 7 L BUN 15 Creatinine 1.1 Creat Clearance w eGFR 54.47 POC Glucometer Random Glucose 308 H* Lactic Acid 2.5 H* Calcium 8.5 Total Bilirubin 0.2 AST 16 ALT 15 Alkaline Phosphatase 124 H Creatine Kinase 117 Troponin I < 0.02 Total Protein 7.7 Albumin 3.5 Lipase 154 Urine Color Urine Appearance Urine pH Ur Specific [place] Urine Protein Urine Glucose (UA) Urine Ketones Urine Blood Urine Nitrite Urine Bilirubin Urine Urobilinogen Ur Leukocyte Esterase Urine WBC (Auto) Urine RBC (Auto) Ur Epithelial Cells Urine Mucus Urine HCG, Qual Acetone, Qual Positive moderate 2+ H 02/04/18 02/04/18 02/04/18 07:34 06:43 01:45 RBC 4.39 MCV 79.1 L MCHC 32.3 RDW 17.5 H MPV 7.9 Neutrophils % 58.8 D Lymphocytes % 29.8 D Monocytes % 9.7 Eosinophils % 1.0 D Basophils % 0.7 POC Glucometer [phone] - Medications Given in the ED: ED Medications Discontinued Medications Generic Name Dose Route Start Last Admin Trade Name Freq PRN Reason Stop Dose Admin Acetaminophen 1,000 mg 02/04/18 02:52 02/04/18 04:22 Ofirmev Injection - IVPB 02/04/18 02:53 1,000 mg ONCE ONE Administration Sodium Chloride 1,000 mls @ 1,000 mls/hr 02/04/18 01:31 02/04/18 01:56 Normal Saline - IV 02/04/18 02:30 1,000 mls/hr ASDIR STA Administration Famotidine/Sodium Chloride 20 mg in 50 mls @ 100 mls/hr 02/04/18 02:52 04:22 Pepcid 20 Mg Premixed Ivpb - IVPB 02/04/18 03:21 100 mls/hr ONCE ONE Administration Sodium Chloride 1,000 mls @ 1,000 mls/hr 02/04/18 07:36 02/04/18 07:47 Normal Saline - IV 02/04/18 08:35 1,000 mls/hr ASDIR STA Administration Insulin Human Regular 5 units 02/04/18 06:45 02/04/18 06:51 Novolin R Vial *For Ivpush Or Iv Drip Only* IVPUSH 02/04/18 06:46 5 unit ONCE ONE Administration Insulin Human Regular 5 units 02/04/18 07:36 02/04/18 07:47 Novolin R Vial *For Ivpush Or Iv Drip Only* IVPUSH 02/04/18 07:37 5 unit ONCE ONE Administration Ondansetron HCl 4 mg 02/04/18 02:52 02/04/18 03:20 Zofran Injection IVPB 02/04/18 02:53 4 mg ONCE ONE Administration Sodium Chloride 1,000 ml 02/04/18 02:41 02/04/18 05:48 Normal Saline - IV 02/04/18 02:42 1,000 ml ONCE ONE Administration Medical Decision Making - Medical Decision Making 02/04/18 09:31 pt signed out to me pending improved blood glucose control Pt repeat fingerstick 375 Will give IVF and Insulin Fingerstick to be re checked BG- 340 Pt has sliding scale with her Will discharge Pt feels better follow up with PMD *DC/Admit/Observation/Transfer Diagnosis at time of Disposition: Hyperglycemia Gastritis Qualifiers: Gastritis type: unspecified gastritis Chronicity: acute Gastritis bleeding: without bleeding Qualified Code(s): K29.00 - Acute gastritis without bleeding - Discharge Dispostion Disposition: HOME Condition at time of disposition: Good Decision to Admit order: No - Referrals Referrals: Zain Cotto MD [Primary Care Provider] - - Patient Instructions Printed Discharge Instructions: DI for Gastritis, DI for Abdominal Pain-Adult Additional Instructions: Please follow-up with Dr. Cotto in the next 2 days. Advance your diet as tolerated and drink plenty of water. Continue to follow your prescribed insulin regimen. Return to the Emergency Department for any new/worsening/concerning symptoms. - Post Discharge Activity Forms/Work/School Notes: Back to Work
[2018-02-04 11:27] VITALS: BP 120/74; PULSE 94
--- NOTE | 2018-02-04 13:20 | EKG ---
Test Reason : Blood Pressure : / mmHG Vent. Rate : 087 BPM Atrial Rate : 087 BPM P-R Int : 150 ms QRS Dur : 084 ms QT Int : 398 ms P-R-T Axes : 048 054 036 degrees QTc Int : 478 ms NORMAL SINUS RHYTHM NORMAL ECG WHEN COMPARED WITH ECG OF 26-FEB-2017 17:41, INCOMPLETE RIGHT BUNDLE BRANCH BLOCK IS NO LONGER PRESENT Confirmed by CARINE ECHOLS, JAJA ([id number]) on 02/04/2018 1:19:48 PM Referred By: Confirmed By:JAJA HAWK MD
== END 2018-02-04 11:27 | disposition home or self-care (01) ==
LOC: JER 00:25
PROC: 3E033NZ Introduction of Analgesics, Hypnotics, Sedatives into Peripheral Vein, Percutaneous Approach (ICD-10-PCS; principal; 2018-02-04)
PROC: 3E033GC Introduction of Other Therapeutic Substance into Peripheral Vein, Percutaneous Approach (ICD-10-PCS; 2018-02-04)
PROC: 3E013VG Introduction of Insulin into Subcutaneous Tissue, Percutaneous Approach (ICD-10-PCS; 2018-02-04)
PROC: 3E0337Z Introduction of Electrolytic and Water Balance Substance into Peripheral Vein, Percutaneous Approach (ICD-10-PCS; 2018-02-04)
DX: K29.70 Gastritis, unspecified, without bleeding (principal)
CPT/HCPCS: 36415; 76705-TC; 80053; 81003; 81015; 82009; 82550; 82962; 83605; 83690; 84484; 84703; 85025; 87086; 93005; 93010; 99284-25; J0131; J7030

== ENCOUNTER → 2018-07-21 | Emergency (ER) | payer OTHER ==
[2018-07-21 23:30] VITALS: BP 120/63; PULSE 109; TEMP 98; BMI 25.7
--- NOTE | 2018-07-22 00:27 | PDOC ---
Attending Attestation - Resident Resident Name: Surinder Pike - ED Attending Attestation I have performed the following: I have examined & evaluated the patient, The case was reviewed & discussed with the resident, I agree w/resident's findings & plan
== END | disposition left against medical advice (07) ==
LOC: JER 23:24
DX: Z53.21 Procedure and treatment not carried out due to patient leaving prior to being seen by health care provider (principal)
CPT/HCPCS: 99281-25

== ENCOUNTER 2019-01-14 23:53 | Emergency (ER) | payer OTHER ==
[2019-01-15 00:03] VITALS: BMI 23.1
[2019-01-15] MEDS ORDERED: SODIUM CHLORIDE 1,000 ML IV STA (01:03)
[2019-01-15 01:37] LABS: BASO % 0.6 % (0-2.0); EOS % 0.4 % (0-4.5); HEMATOCRIT 35.4 % (32.4-45.2); HEMOGLOBIN 11.2 GM/dL (10.7-15.3); MCH 25.4 pg (25.7-33.7); MCHC 31.8 g/dl (32.0-36.0); MEAN PLT VOLUME 8.3 fl (7.5-11.1); MONO % 7.2 % (3.8-10.2); NEUT % 70.8 % (42.8-82.8); PLATELET COUNT 478 K/MM3 (134-434); RBC 4.42 M/mm3 (3.60-5.2); RDW 16.5 % (11.6-15.6)
[2019-01-15 02:14] LABS: ALBUMIN 3.5 g/dl (3.4-5.0); ALK PHOS 91 U/L (45-117); ANION GAP 16 MMOL/L (8-16); BILIRUBIN,TOTAL 0.3 mg/dL (0.2-1); BLOOD UREA NITROGEN 16.7 mg/dL (7-18); CALCIUM 9.3 mg/dL (8.5-10.1); CHLORIDE 103 mmol/L (98-107); CO2 20 mmol/L (21-32); CREATININE 1.2 mg/dL (0.55-1.3); GLUCOSE,RANDOM 400 mg/dL (74-106); POTASSIUM 4.2 mmol/L (3.5-5.1); SGOT/AST 22 U/L (15-37); SGPT/ALT 18 U/L (13-61); SODIUM 139 mmol/L (136-145); TOT PROT 7.4 g/dl (6.4-8.2)
--- NOTE | 2019-01-15 03:08 | PDOC ---
Attending Attestation - Resident Resident Name: León Agrawal - ED Attending Attestation I have performed the following: I have examined & evaluated the patient, The case was reviewed & discussed with the resident, I agree w/resident's findings & plan, Exceptions are as noted
--- NOTE | 2019-01-15 03:19 | PDOC ---
History of Present Illness - General Chief Complaint: Respiratory Stated Complaint: ASTHMA ATTACK Time Seen by Provider: 01/15/19 00:19 History Source: Patient Exam Limitations: No Limitations - History of Present Illness Initial Comments: 01/15/19 04:18 Dee Dee Crum is a 43F with T1DM, anxiety, and recently diagnosed bronchitis presenting with new SOB with exertion. Patient reports 3 weeks of shortness of breath that has worsened over the last day or two. Was seen by Dr. Cotto, was diagnosed with bronchitis and laryngitis and given Ventolin inhaler and nebs which she tried hours before without improvement. Got into an argument with a friend of her daughter, and suddenly had a sensation of her throat closing up with worsening dyspnea. Presents today with concern over dyspnea as well as a choking sensation. Denies fever, chills, N/V, C/D. Says she is non-compliant with her psych meds. Past History - Past Medical History Allergies/Adverse Reactions: Allergies Allergy/AdvReac Type Severity Reaction Status Date / Time No Known Allergies Allergy Verified 01/14/19 23:59 Home Medications: Ambulatory Orders Alprazolam [Xanax] 0.5 mg PO DAILY PRN 01/19/17 Amoxicillin - [Amoxicillin 875mg Tablet -] 875 mg PO ASDIR 02/04/18 Cholecalciferol (Vitamin D3) [Vitamin D3 -] 400 unit PO WEEKLY 02/04/18 Ferrous Sulfate 325 mg PO TID 02/04/18 Insulin Lispro [Humalog] 7 unit SQ ASDIR 02/04/18 Insulin Lispro [Humalog] 20 unit SQ AM 02/04/18 Lipase/Protease/Amylase [Yue Rea 36,000 Units Capsule] 1 each PO TID 02/04/18 Cetirizine HCl [Zyrtec -] 10 mg PO DAILY 01/15/19 Fluticasone Propionate [Flovent Diskus] 50 mcg IH DAILY 01/15/19 Naproxen [Naprosyn -] 500 mg PO BID 01/15/19 Promethazine/Dextromethorphan [Promethazine-Dm Solution] 5 ml PO DAILY 01/15/19 Sumatriptan Succinate 100 mg PO DAILY 01/15/19 Anemia: No Asthma: No Cancer: No Cardiac Disorders: No CVA: No COPD: No CHF: No Dementia: No Diabetes: Yes GI Disorders: Yes (gastropereisis) Disorders: Yes (severe gastroparesis, pancreatitis w/hospitalization at [facility]) HTN: No Hypercholesterolemia: No Liver Disease: No Psychiatric Problems: Yes (DEPRESSION, anxiety) Seizures: No Thyroid Disease: No Other medical history: migraines - Surgical History Abdominal Surgery: Yes (RIGHT ABD LIPOMA) Appendectomy: No Cardiac Surgery: No Cholecystectomy: No Lung Surgery: No Neurologic Surgery: No Orthopedic Surgery: No - Reproductive History Tubal Ligation: Yes - Immunization History Td Vaccination: Yes TDAP Vaccination: Yes Immunization Up to Date: No - Suicide/Smoking/Psychosocial Hx Smoking Status: No Smoking History: Never smoked Have you smoked in the past 12 months: No Number of Cigarettes Smoked Daily: 0 Hx Alcohol Use: No Drug/Substance Use Hx: No Substance Use Type: None Hx Substance Use Treatment: No Review of Systems - Review of Systems Constitutional: No: Symptoms Reported HEENTM: No: Blurred Vision, Hearing Loss Respiratory: Yes: Cough, Shortness of Breath, SOB with Exertion Cardiac (ROS): Yes: Palpitations. No: Chest Pain ABD/GI: No: Constipated, Diarrhea, Nausea, Vomiting : No: Burning, Dysuria, Discharge, Frequency, Flank Pain, Hematuria, Incontinence Musculoskeletal: No: Back Pain, Neck Pain Integumentary: No: Symptoms Reported Neurological: Yes: Tremors (upon standing) Psychiatric: Yes: Anxiety, Depression Endocrine: No: Symptoms Reported Hematologic/Lymphatic: No: Symptoms Reported All Other Systems: Reviewed and Negative *Physical Exam - Vital Signs Last Vital Signs Temp Pulse Resp BP Pulse Ox 99.9 F H 125 H 18 105/67 99 01/15/19 00:00 01/15/19 00:00 01/15/19 00:00 01/15/19 00:00 01/15/19 00:00 - Physical Exam General Appearance: Yes: Nourished, Appropriately Dressed, Mild Distress HEENT: positive: EOMI, SEVERINO, Normal Voice, Pharynx Normal, Muffled/Hoarse voice (voice is low to a whisper but audible). negative: Scleral Icterus (R), Scleral Icterus (L) Neck: positive: Normal Thyroid, Supple. negative: Tender, Lymphadenopathy (R), Lymphadenopathy (L) Respiratory/Chest: positive: Lungs Clear, Normal Breath Sounds, Respiratory Distress. negative: Chest Tender, Accessory Muscle Use, Labored Respiration, Crackles, Rales, Rhonchi Cardiovascular: positive: Regular Rhythm, Tachycardia (110-125). negative: Regular Rate, Murmur Gastrointestinal/Abdominal: positive: Normal Bowel Sounds, Flat, Soft. negative : Tender, Pulsatile Mass Musculoskeletal: positive: Normal Inspection. negative: CVA Tenderness Extremity: positive: Normal Capillary Refill, Normal Inspection, Normal Range of Motion. negative: Tender Integumentary: positive: Normal Color, Dry, Warm Neurologic: positive: Fully Oriented, Alert, Normal Mood/Affect, Normal Response ED Treatment Course - LABORATORY CBC & Chemistry Diagram: 01/15/19 01:10 01/15/19 01:10 - ADDITIONAL ORDERS Additional order review: Laboratory Results 01/15/19 01/15/19 01/15/19 01:10 01:10 01:10 Sodium Cancelled 139 Potassium Cancelled 4.2 Chloride Cancelled 103 Carbon Dioxide Cancelled 20 L Anion Gap Cancelled 16 BUN Cancelled 16.7 Creatinine Cancelled 1.2 Est GFR (CKD-EPI)AfAm Cancelled 64.10 Est GFR (CKD-EPI)NonAf Cancelled 55.31 Random Glucose Cancelled 400 H Calcium Cancelled 9.3 Total Bilirubin Cancelled 0.3 AST Cancelled 22 ALT Cancelled 18 Alkaline Phosphatase Cancelled 91 Creatine Kinase 109 Troponin I < 0.02 Total Protein Cancelled 7.4 Albumin Cancelled 3.5 Serum , Qual Negative 01/15/19 01:10 RBC 4.42 MCV 80.0 MCHC 31.8 L RDW 16.5 H MPV 8.3 Neutrophils % 70.8 D Lymphocytes % 21.0 D Monocytes % 7.2 Eosinophils % 0.4 Basophils % 0.6 - Medications Given in the ED: ED Medications Discontinued Medications Generic Name Dose Route Start Last Admin Trade Name Freq PRN Reason Stop Dose Admin Sodium Chloride 1,000 mls @ 1,000 mls/hr 01/15/19 01:03 01/15/19 01:26 Normal Saline - IV 01/15/19 02:02 1,000 mls/hr ASDIR STA Administration Medical Decision Making - Medical Decision Making 01/15/19 03:18 Dee Dee Crum is a 43F with T1DM, anxiety, and recently diagnosed bronchitis presenting with new SOB with exertion. Patient is reporting SOB with exertion in the setting of bronchitis vs. asthma with tachycardia to the 120s-130s, but patient is saturating 99% on room air and is not in any respiratory distress, lung sounds clear. Has had a tubal ligation but on OCP for heavy periods, unable to PERC out 2/2 tachycardia and OCP. Concern high for PE vs. PNA vs. PTX vs. dehydration vs. anxiety. Will evaluate via: CMP CBC ECG CXR serum Will give 1L fluid and reassess. Not wheezing, breathing treatment not emergent at this time, will worsen tachycardia for minimal improvement in airway. Patient appears anxious and is shaking with tremors but calms with conversation , never desaturates below 98% despite distress. 01/15/19 04:05 Patient still tachycardic to 114, etiology unclear. Will give second 1L fluids and then get CTA to r/o PE. 01/15/19 05:04 Repeat HR 107. Pending CTA read. 01/15/19 05:40 CTA read negative for PE. Still tachycardic to 110, but all life-threatening diagnoses excluded at this time. Will discharge home with cardiology follow-up. 01/15/19 06:00 Patient reports jitters and shakes when standing, but presentation is identical to presentation on arrival and calmed down after sitting and talking. Patient asked to stand and started shaking immediately, but when sitting shaking stopped. Patient not seen to be shaking at rest. Presentation is consistent with a psychosomatic etiology rather than a cardiac one, dispo plan unchanged. *DC/Admit/Observation/Transfer Diagnosis at time of Disposition: Tachycardia, Shortness of breath - Discharge Dispostion Disposition: HOME Condition at time of disposition: Stable Decision to Admit order: No - Referrals Referrals: Zain Cotto MD [Primary Care Provider] - Chris Platt MD [Staff Physician] - - Patient Instructions Printed Discharge Instructions: DI for Acute Bronchitis Additional Instructions: Today you were evaluated for shortness of breath and a high heart rate. We evaluated your blood labs and did not find any signs of infection, anemia, or electrolyte imbalance. We obtained an x-ray of your chest which was not concerning for pneumonia. We gave you 2 liters if IV fluids, but your heart rate was persistently high and your shortness of breath when walking was not resolving, so we also obtained a CT scan of your chest, which did not show any signs of blood clots in your lungs called pulmonary embolism. You are still having shortness of breath when walking, but this is due to your bronchitis. We have determined that you do not have any highly concerning diseases that need inpatient hospitalization immediately. Please continue to take the antibiotics and nebulizers that Dr. Cotto prescribed for you to help your bronchitis resolve. Please try to see him in the next 3 days for further care. Because your heart rate is persistently high, please follow-up with a scrap metal processing worker; a referral to Dr. Platt is included. If you experience worsening shortness of breath, have worsening throat swelling, fevers, chills, nausea, vomiting, or any other new or concerning symptoms, please return to the closest emergency room immediately. - Post Discharge Activity
[2019-01-15] MEDS ORDERED: SODIUM CHLORIDE 0.9% 500 ML INFUS.BAG IV ONE (03:34)
[2019-01-15 05:07] VITALS: BP 132/77; PULSE 107; TEMP 98.1
--- NOTE | 2019-01-15 14:01 | EKG ---
Test Reason : Blood Pressure : / mmHG Vent. Rate : 113 BPM Atrial Rate : 113 BPM P-R Int : 152 ms QRS Dur : 084 ms QT Int : 346 ms P-R-T Axes : 047 025 027 degrees QTc Int : 474 ms SINUS TACHYCARDIA INCOMPLETE RBBB WHEN COMPARED WITH ECG OF 04-FEB-2018 02:20, NO SIGNIFICANT CHANGE WAS FOUND Confirmed by GEN POLK MD ([id number]) on 01/15/2019 2:01:03 PM Referred By: Confirmed By:GEN POLK MD
== END 2019-01-15 06:07 | disposition home or self-care (01) ==
LOC: JER 23:53
PROC: 3E0337Z Introduction of Electrolytic and Water Balance Substance into Peripheral Vein, Percutaneous Approach (ICD-10-PCS; principal; 2019-01-14)
DX: R06.02 Shortness of breath (principal); R00.0 Tachycardia, unspecified
CPT/HCPCS: 36415; 71045-TC-FY; 71275-TC; 80053; 82550; 84484; 84703; 85025; 93005; 93010; 99283-25; J7030

== ENCOUNTER 2019-03-22 21:01 | Emergency (ER) | payer OTHER ==
[2019-03-22 21:08] VITALS: BP 111/72; PULSE 109; TEMP 98.4; BMI 25.7
--- NOTE | 2019-03-22 21:09 | PDOC ---
Rapid Medical Evaluation Time Seen by Provider: 03/22/19 21:05 Medical Evaluation: Allergies Allergy/AdvReac Type Severity Reaction Status Date / Time No Known Allergies Allergy Verified 03/22/19 21:04 03/22/19 21:05 Pt presents to the ER for evaluation of vaginal bleeding. Pt states she is going through a tampon and 2 pads an hour. States her period has started on . Told by her ADULT MANAGER to come to the ER for evaluation. Admits to fatigue, shortness of breath on exertion. Exam: ADULT MANAGER exam deferred. Pt appears pale. No acute distress Orders: labs, IV insert Pt to proceed to the ER for further evaluation Discharge Disposition - Diagnosis Vaginal bleeding - Referrals - Patient Instructions - Post Discharge Activity
--- NOTE | 2019-03-22 22:07 | PDOC ---
Attending Attestation - Resident Resident Name: Madie Sands - ED Attending Attestation I have performed the following: I have examined & evaluated the patient, The case was reviewed & discussed with the resident, I agree w/resident's findings & plan - HPI HPI: 03/22/19 23:20 see resident hpi - Physicial Exam PE: 03/22/19 23:21 agree with resident exam - Medical Decision Making 03/22/19 23:21 44-year-old female with vaginal bleeding x1 month Patient is not not , there is no significant anemia Ultrasound to evaluate for possible leiomyoma Pending results patient will be discharged home to follow-up with ETL CONSULTANT outpatient
--- NOTE | 2019-03-22 22:56 | PDOC ---
History of Present Illness - General Chief Complaint: Vaginal Bleeding Stated Complaint: SENT BY DOCTOR Time Seen by Provider: 03/22/19 21:05 History Source: Patient Exam Limitations: No Limitations - History of Present Illness Initial Comments: Pt is a 44 yo F, with PMH of Type 1 DM (gastroparesis, pancreatitis, DKA), and anxiety, who is presenting with vaginal bleeding since x3 weeks. Pt states she has had alternating days of heavy bleeding (soaking through 1-2 pads/hour) and days of light spotting, associated with nausea and abdominal cramping. Pt states she had a TVUS and polypectomy (11/2018) and was started on OCP to control bleeding. Pt was told by her UNIVERSITY CONTROLLER to stop the OCPs this week, which did not improve her symptoms. She endorses generalized fatigue/weakness and paleness of her skin this week. Pt denies any fevers/chills, headache, vision changes, syncope, chest pain, palpitations, SOB, nausea/vomiting, urinary symptoms, diarrhea/constipation, or leg swelling. LMP: 02/26 and has been ongoing; pap smear done 12/2018 and was normal Allergies: NKDA TIME LOCK EXPERT: Dr. Morris Social: Pt denies any cigarette, alcohol, or drug use. Pt denies any recent travel or sick contacts. Surgical: tubal ligation, polypectomy Family: no relevant history. 03/22/19 22:35 03/22/19 22:38 Past History - Travel Traveled outside of the country in the last 30 days: No Close contact w/someone who was outside of country & ill: No - Past Medical History Allergies/Adverse Reactions: Allergies Allergy/AdvReac Type Severity Reaction Status Date / Time No Known Allergies Allergy Verified 03/22/19 21:04 Home Medications: Ambulatory Orders Alprazolam [Xanax] 0.5 mg PO DAILY PRN 01/19/17 Amoxicillin - [Amoxicillin 875mg Tablet -] 875 mg PO ASDIR 02/04/18 Cholecalciferol (Vitamin D3) [Vitamin D3 -] 400 unit PO WEEKLY 02/04/18 Ferrous Sulfate 325 mg PO TID 02/04/18 Insulin Lispro [Humalog] 7 unit SQ ASDIR 02/04/18 Insulin Lispro [Humalog] 20 unit SQ AM 02/04/18 Lipase/Protease/Amylase [Yue Rea 36,000 Units Capsule] 1 each PO TID 02/04/18 Cetirizine HCl [Zyrtec -] 10 mg PO DAILY 01/15/19 Fluticasone Propionate [Flovent Diskus] 50 mcg IH DAILY 01/15/19 Naproxen [Naprosyn -] 500 mg PO BID 01/15/19 Promethazine/Dextromethorphan [Promethazine-Dm Solution] 5 ml PO DAILY 01/15/19 Sumatriptan Succinate 100 mg PO DAILY 01/15/19 Anemia: No Asthma: No Cancer: No Cardiac Disorders: No CVA: No COPD: No CHF: No Dementia: No Diabetes: Yes GI Disorders: Yes (gastropereisis) Disorders: Yes (severe gastroparesis, pancreatitis w/hospitalization at [facility]) HTN: No Hypercholesterolemia: No Liver Disease: No Psychiatric Problems: Yes (DEPRESSION, anxiety) Seizures: No Thyroid Disease: No - Surgical History Abdominal Surgery: Yes (RIGHT ABD LIPOMA) Appendectomy: No Cardiac Surgery: No Cholecystectomy: No Lung Surgery: No Neurologic Surgery: No Orthopedic Surgery: No - Reproductive History Tubal Ligation: Yes - Immunization History Td Vaccination: Yes TDAP Vaccination: Yes Immunization Up to Date: No - Psycho Social/Smoking Cessation Hx Smoking Status: No Smoking History: Never smoked Have you smoked in the past 12 months: No Number of Cigarettes Smoked Daily: 0 Hx Alcohol Use: No Drug/Substance Use Hx: No Substance Use Type: None Hx Substance Use Treatment: No Abd/GI Specific PMHX - Complaint Specific PMHX GERD: No Pancreatitis: Yes Review of Systems - Review of Systems Able to Perform ROS?: Yes Is the patient limited Togolese proficient: No Constitutional: Yes: Malaise, Weakness, Weight Stable. No: Chills, Diaphoresis , Fever, Loss of Appetite HEENTM: No: Blurred Vision, Recent change in vision, Nose Congestion, Throat Pain, Throat Swelling, Difficulty Swallowing Respiratory: No: Cough, Orthopnea, Shortness of Breath Cardiac (ROS): No: Chest Pain, Edema, Irregular Heart Rate, Lightheadedness, Palpitations, Syncope, Chest Tightness ABD/GI: Yes: Abdominal cramping. No: Constipated, Diarrhea, Nausea, Poor Appetite, Poor Fluid Intake, Rectal Bleeding, Vomiting : No: Burning, Dysuria, Frequency, Flank Pain, Hematuria, Pain, Urgency Musculoskeletal: No: Back Pain, Muscle Pain, Muscle Weakness Integumentary: No: Rash Neurological: No: Headache, Numbness, Weakness, Unsteady Gait, Dizziness Psychiatric: No: Sleep Pattern Change, Change in Appetite Endocrine: No: Increased Urine, Change in Weight Hematologic/Lymphatic: No: Anemia, Blood Clots, Easy Bleeding, Easy Bruising All Other Systems: Reviewed and Negative *Physical Exam - Vital Signs Last Vital Signs Temp Pulse Resp BP Pulse Ox 98.4 F 109 H 18 111/72 98 03/22/19 21:04 03/22/19 21:04 03/22/19 21:04 03/22/19 21:04 03/22/19 21:04 - Physical Exam Comments: BP stable, tachycardic to 110s, pt afebrile. Pt in NAD, normal body habitus. Pt alert and oriented x3. manufacturing applications engineer generally intact, muscular strength and sensation intact. No midline spinal tenderness, step-offs, or crepitus. Head normocephalic, atraumatic. Eyes PERRLA, EOMI. Oropharynx without erythema or exudates, no LAD b/l. No nasal congestion. Hearing intact. Clear heart sounds, S1/S2, no JVD, b/l pedal edema, or heart murmur. Clear lung sounds, no respiratory distress, wheezes, crackles, or accessory muscle use. No abdominal or CVA tenderness to palpation, no rebound, no guarding. Abdomen soft, non-distended, and with normoactive bowel sounds. Blood in vaginal canal, no clots or tissue. No CMT or adnexal TTP. No unusual discharge. Skin without jaundice or rash. 03/22/19 23:01 ED Treatment Course - LABORATORY CBC & Chemistry Diagram: 03/22/19 22:40 03/22/19 22:40 Medical Decision Making - Medical Decision Making Pt with concern for symptomatic anemia 2/2 persistent vaginal bleeding. Will evaluate for anemia, , and uterine/adnexal pathology with TVUS. CBC: H/H at baseline, not at level for transfusion today. Pending beta-hcg for TVUS. 03/22/19 23:02 beta-hcg negative Pelvic US showed R ovarian cyst, no torsion, no uterine abnormalities. Pt can be d/c to home with OB f/u. Strict return precautions provided with pt understanding. 03/23/19 00:43 Discharge - Discharge Information Problems reviewed: Yes Clinical Impression/Diagnosis: Vaginal bleeding Ovarian cyst Qualifiers: Laterality: right Qualified Code(s): N83.201 - Unspecified ovarian cyst, right side Condition: Stable Disposition: HOME - Admission No - Follow up/Referral Referrals: Zain Cotto MD [Primary Care Provider] - Kalie Morris MD [Non Staff, Medical] - - Patient Discharge Instructions Patient Printed Discharge Instructions: DI for Vaginal Bleeding Additional Instructions: You were seen in the ER today for vaginal bleeding. The results of your labs and imaging today showed a right ovarian cyst with no anemia or need for transfusion today. Please follow-up with your primary care doctor and TIME LOCK EXPERT within 1-2 days to discuss your visit and make sure your symptoms have improved. Please return to the ER if you have any worsening pain, development of fevers or chills, loss of consciousness, inability to tolerate food or fluids , or any other concerns. - Post Discharge Activity
[2019-03-22 22:57] LABS: EOS % 1.6 % (0-4.5); HEMOGLOBIN 11.2 GM/dL (10.7-15.3); LYMPH % 37.2 % (8-40); MEAN CELL VOLUME 78.2 fl (80-96); MEAN PLT VOLUME 7.8 fl (7.5-11.1); MONO % 6.6 % (3.8-10.2); NEUT % 53.6 % (42.8-82.8); PLATELET COUNT 490 K/MM3 (134-434); RBC 4.47 M/mm3 (3.60-5.2); RDW 15.9 % (11.6-15.6); WHITE BLOOD COUNT 6.2 K/mm3 (4.0-10.0)
[2019-03-22 23:11] LABS: INR 0.91 (0.83-1.09); PROTHROMBIN TIME (PATIENT) 10.7 SEC (9.7-13.0)
[2019-03-22 23:22] LABS: ALBUMIN 3.4 g/dl (3.4-5.0); ALK PHOS 87 U/L (45-117); ANION GAP 10 MMOL/L (8-16); BILIRUBIN,TOTAL 0.2 mg/dL (0.2-1); BLOOD UREA NITROGEN 18.3 mg/dL (7-18); CALCIUM 9.1 mg/dL (8.5-10.1); CHLORIDE 107 mmol/L (98-107); CO2 20 mmol/L (21-32); CREATININE 1.1 mg/dL (0.55-1.3); GLUCOSE,RANDOM 216 mg/dL (74-106); SGOT/AST 17 U/L (15-37); SGPT/ALT 17 U/L (13-61); SODIUM 137 mmol/L (136-145); TOT PROT 7.6 g/dl (6.4-8.2)
== END 2019-03-23 01:04 | disposition home or self-care (01) ==
LOC: JER 21:01
DX: N83.201 Unspecified ovarian cyst, right side (principal); E10.43 Type 1 diabetes mellitus with diabetic autonomic (poly)neuropathy; K31.84 Gastroparesis; Z79.4 Long term (current) use of insulin; F41.9 Anxiety disorder, unspecified; K86.89 Other specified diseases of pancreas
CPT/HCPCS: 36415; 76830-TC; 80053; 82962; 84702; 84703; 85025; 85610; 99283-25

== ENCOUNTER 2019-07-05 11:13 | Emergency (ER) | payer OTHER ==
[2019-07-05 11:33] VITALS: BMI 26.6
[2019-07-05] MEDS ORDERED: SODIUM CHLORIDE 0.9% 1000 ML INFUS.BAG IV ONE (12:49)
--- NOTE | 2019-07-05 13:10 | PDOC ---
History of Present Illness - General Chief Complaint: Lightheaded Stated Complaint: DIZZINESS Time Seen by Provider: 07/05/19 13:00 History Source: Patient Exam Limitations: No Limitations - History of Present Illness Initial Comments: 07/05/19 13:07 Patient is a 44-year-old female who presents the ED with complaint of vision changes and lightheadedness for the last 2 months. She states that has gotten worse over the last 2 weeks. She states she is unable to read because of the blurred vision. She denies any fevers or chills. The patient is a type I diabetic on insulin. She has a history of migraines. She states she did not have insurance and that is why she has not been seen sooner. She denies any chest pain or shortness of breath. She denies any allergies to medications. Patient has not taken anything for her symptoms. Past History - Past Medical History Allergies/Adverse Reactions: Allergies Allergy/AdvReac Type Severity Reaction Status Date / Time No Known Allergies Allergy Verified 07/05/19 11:33 Home Medications: Ambulatory Orders Alprazolam [Xanax] 0.5 mg PO DAILY PRN 01/19/17 Amoxicillin - [Amoxicillin 875mg Tablet -] 875 mg PO ASDIR 02/04/18 Cholecalciferol (Vitamin D3) [Vitamin D3 -] 400 unit PO WEEKLY 02/04/18 Ferrous Sulfate 325 mg PO TID 02/04/18 Insulin Lispro [Humalog] 7 unit SQ ASDIR 02/04/18 Insulin Lispro [Humalog] 20 unit SQ AM 02/04/18 Lipase/Protease/Amylase [Yue Rea 36,000 Units Capsule] 1 each PO TID 02/04/18 Cetirizine HCl [Zyrtec -] 10 mg PO DAILY 01/15/19 Fluticasone Propionate [Flovent Diskus] 50 mcg IH DAILY 01/15/19 Naproxen [Naprosyn -] 500 mg PO BID 01/15/19 Promethazine/Dextromethorphan [Promethazine-Dm Solution] 5 ml PO DAILY 01/15/19 Sumatriptan Succinate 100 mg PO DAILY 01/15/19 Cephalexin [Keflex] 500 mg PO TID 7 Days #21 capsule 07/05/19 Anemia: No Asthma: No Cancer: No Cardiac Disorders: No CVA: No COPD: No CHF: No Dementia: No Diabetes: Yes GI Disorders: Yes (gastropereisis) Disorders: Yes (severe gastroparesis, pancreatitis w/hospitalization at [facility]) HTN: No Hypercholesterolemia: No Liver Disease: No Psychiatric Problems: Yes (DEPRESSION, anxiety) Seizures: No Thyroid Disease: No - Surgical History Abdominal Surgery: Yes (RIGHT ABD LIPOMA) Appendectomy: No Cardiac Surgery: No Cholecystectomy: No Lung Surgery: No Neurologic Surgery: No Orthopedic Surgery: No - Reproductive History Tubal Ligation: Yes - Immunization History Td Vaccination: Yes TDAP Vaccination: Yes Immunization Up to Date: No - Psycho Social/Smoking Cessation Hx Smoking Status: No Smoking History: Never smoked Have you smoked in the past 12 months: No Number of Cigarettes Smoked Daily: 0 Hx Alcohol Use: No Drug/Substance Use Hx: No Substance Use Type: None Hx Substance Use Treatment: No Review of Systems - Review of Systems Comments:: 07/05/19 13:08 - Review of Systems Able to Perform ROS?: Yes Constitutional: No: Fever, Chills, Loss of Appetite, Night Sweats, Weakness HEENTM: No: Eye Pain, Ear Pain, Throat Pain, Throat Swelling, Mouth Pain, Difficulty Swallowing; + vision changes Respiratory: No: Cough, Shortness of Breath, Wheezing, Sputum Production Cardiac (ROS): No: Chest Pain, Chest Tightness, Palpitations, Irregular Heart Beat, Edema ABD/GI: No: Nausea, Vomiting, Abdominal Pain, Diarrhea : No Dysuria, No Hematuria, No Frequency, No Urgency, No Vaginal Discharge/ Pain, No Penile Discharge/Pain Musculoskeletal: No: Muscle Pain, Back Pain, Joint Pain, Muscle Weakness, Neck Pain Integumentary: No: Lesions, Rash Neurological: No: Headache, Numbness, Tingling, Weakness, Speech Difficulties; + lightheadedness *Physical Exam - Vital Signs Last Vital Signs Temp Pulse Resp BP Pulse Ox 98 F 98 H 18 97/59 L 98 07/05/19 11:30 07/05/19 11:30 07/05/19 11:30 07/05/19 11:30 07/05/19 11:30 - Physical Exam 07/05/19 13:09 - Physical Exam General Appearance: Nourished, Appropriately Dressed, No Distress HEENT: EOMI, Normal Voice, No Pharyngeal Erythema, No Muffled/Hoarse voice, No Tonsillar Exudate, No Tonsillar Erythema, No Nasal Congestion, No Rhinorrhea, Hearing Grossly Normal, TMs Normal, No TM Bulging, No TM Dullness, No TM Erythema Neck: Supple, No Lymphadenopathy (R), No Lymphadenopathy (L), No Rigidity, No Decreased range of motion Respiratory/Chest: Lungs Clear, Normal Breath Sounds. No Respiratory Distress, No Accessory Muscle Use Cardiovascular: Regular Rhythm, Regular Rate, S1, S2 Gastrointestinal/Abdominal: Normal Bowel Sounds, Soft. Non-tender, No Guarding , No Rebound, No Rigidity Musculoskeletal: Normal Inspection. No Decreased Range of Motion Extremity: Normal Capillary Refill, Normal Inspection Integumentary: Normal Color, Dry. 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 Strength 5/5 bilateral upper and lower extremities. ED Treatment Course - LABORATORY CBC & Chemistry Diagram: 07/05/19 14:14 07/05/19 14:20 - RADIOLOGY Radiology Studies Ordered: Category Date Time Status HEAD CT WITHOUT CONTRAST [CT] Stat CT Scan 07/05/19 13:05 Ordered Medical Decision Making - Medical Decision Making 07/05/19 13:09 Assessment: Patient is a 44-year-old female with visual changes and lightheadedness for the last 2 months. Plan: -Labs ordered -EKG ordered -CT head -Fluids -Will reassess 07/05/19 15:40 The patient had a blood glucose level of 44 and she was given 3 juices. She drank the juice and then her blood glucose level was 40. She was given an amp of D50 which increased her sugars to above 200. The patient states that she is still having dizziness and it is unchanged. Her CT of her head is within normal limits. Her labs are otherwise stable. Patient has been made aware that this can be a complex migraine and she may require further evaluation with her neurologist who is out of [facility]. We will send the patient for her urinalysis and reevaluate. 07/05/19 18:39 Patient has been made aware that she has a urinary tract infection and we will treat her with Keflex. She must follow-up with her primary doctor within 2 days for repeat evaluation. She should also follow-up with her neurologist at [facility] for further evaluation and treatment as this may be part of a complex migraine. She understands and agrees with this treatment and plan and she has been encouraged to check her sugars often since they were low in the ED. The patient is stable for discharge. Discharge - Discharge Information Problems reviewed: Yes Clinical Impression/Diagnosis: Dizziness Urinary tract infection Qualifiers: Urinary tract infection type: acute cystitis Hematuria presence: without hematuria Qualified Code(s): N30.00 - Acute cystitis without hematuria Condition: Stable Disposition: HOME - Additional Discharge Information Prescriptions: Cephalexin [Keflex] 500 mg PO TID 7 Days #21 capsule - Follow up/Referral Referrals: Zain Cotto MD [Primary Care Provider] - 2 Days - Patient Discharge Instructions Patient Printed Discharge Instructions: DI for Urinary Tract Infection (UTI), DI for Dizziness-Nonvertigo Additional Instructions: Get plenty of rest and drink plenty of fluids. Be sure to check your sugars often for hypoglycemia. Follow-up with your neurologist at [facility] for further evaluation and treatment. Take the antibiotics as prescribed and complete the entire course for your urinary tract infection. Follow-up with your primary doctor within 2 days for repeat evaluation. - Post Discharge Activity Work/Back to School Note: Back to Work
[2019-07-05 14:51] LABS: BASO % 0.8 % (0-2.0); EOS % 0.8 % (0-4.5); HEMATOCRIT 38.5 % (32.4-45.2); HEMOGLOBIN 12.4 GM/dL (10.7-15.3); LYMPH % 37.6 % (8-40); MCH 25.2 pg (25.7-33.7); MCHC 32.2 g/dl (32.0-36.0); MEAN CELL VOLUME 78.4 fl (80-96); MONO % 7.4 % (3.8-10.2); NEUT % 53.4 % (42.8-82.8); PLATELET COUNT 388 K/MM3 (134-434); RBC 4.91 M/mm3 (3.60-5.2); RDW 17.3 % (11.6-15.6); WHITE BLOOD COUNT 6.3 K/mm3 (4.0-10.0)
[2019-07-05 15:30] LABS: ALBUMIN 4.2 g/dl (3.4-5.0); ALK PHOS 79 U/L (45-117); ANION GAP 8 MMOL/L (8-16); BILIRUBIN,TOTAL 0.3 mg/dL (0.2-1); BLOOD UREA NITROGEN 17.5 mg/dL (7-18); CALCIUM 10.2 mg/dL (8.5-10.1); CHLORIDE 106 mmol/L (98-107); CO2 28 mmol/L (21-32); CREATININE 0.9 mg/dL (0.55-1.3); POTASSIUM 3.8 mmol/L (3.5-5.1); SGOT/AST 16 U/L (15-37); SGPT/ALT 17 U/L (13-61); SODIUM 143 mmol/L (136-145); TOT PROT 8.2 g/dl (6.4-8.2)
--- NOTE | 2019-07-05 15:31 | EKG ---
Test Reason : Blood Pressure : / mmHG Vent. Rate : 101 BPM Atrial Rate : 101 BPM P-R Int : 138 ms QRS Dur : 074 ms QT Int : 352 ms P-R-T Axes : 062 076 052 degrees QTc Int : 456 ms SINUS TACHYCARDIA POSSIBLE LEFT ATRIAL ENLARGEMENT NONSPECIFIC T WAVE ABNORMALITY ABNORMAL ECG WHEN COMPARED WITH ECG OF 15-JAN-2019 03:05, NONSPECIFIC T WAVE ABNORMALITY, WORSE IN ANTERIOR LEADS Confirmed by Haylie George ([id number]) on 07/05/2019 3:31:01 PM Referred By: Confirmed By:Haylie George
[2019-07-05 15:35] LABS: GLUCOSE,RANDOM 44 mg/dL (74-106)
[2019-07-05] MEDS ORDERED: DEXTROSE 50%-WATER 25 GM/50 ML DISP.SYRIN ONE (16:34)
[2019-07-05] MEDS ORDERED: DEXTROSE 50%-WATER - 25 GM/50 ML VIAL IVPUSH ONE (16:42)
[2019-07-05 18:14] LABS: EPI CELLS 12.7 /HPF (0-5/HPF); HYALINE CASTS 79 /lpf (0-8); URINE APPEARANCE TURBID; URINE BACTERIA >9000 /hpf (NEGATIVE); URINE BILIRUBIN NEGATIVE (NEGATIVE); URINE COLOR YELLOW; URINE GLUCOSE (UA) 3+ (NEGATIVE); URINE KETONE 1+ (NEGATIVE); URINE LEUK ESTERASE 2+ (NEGATIVE); URINE NITRITE NEGATIVE (NEGATIVE); URINE PROTEIN 1+ (NEGATIVE); URINE RBC 2 /hpf (0-4); URINE UROBILINOGEN 0.2 mg/dL (0.2-1.0); URINE WBC 101 /hpf (0-5)
[2019-07-05] MEDS ORDERED: CEPHALEXIN MONOHYDRATE 500 MG CAPSULE (UD) PO ONE (18:38)
[2019-07-05] MEDS ORDERED: CEPHALEXIN MONOHYDRATE 500 MG CAPSULE (UD) ONE (18:53)
[2019-07-05 19:00] VITALS: BP 106/57; PULSE 78; TEMP 98
[2019-07-05 19:17] LABS: URINE CRYSTALS CALCIUM OXALATE /hpf
== END 2019-07-05 19:00 | disposition home or self-care (01) ==
LOC: JER 11:13
PROC: 3E0337Z Introduction of Electrolytic and Water Balance Substance into Peripheral Vein, Percutaneous Approach (ICD-10-PCS; principal; 2019-07-05)
DX: N30.00 Acute cystitis without hematuria (principal); E10.65 Type 1 diabetes mellitus with hyperglycemia; Z79.4 Long term (current) use of insulin; R42 Dizziness and giddiness; F41.8 Other specified anxiety disorders; F32.9 Major depressive disorder, single episode, unspecified; Z87.19 Personal history of other diseases of the digestive system
CPT/HCPCS: 36415; 70450-TC; 80053; 81003; 82550; 82962; 84484; 84703; 85025; 87086; 87186; 93005; 93010; 99284-25; J7030

== ENCOUNTER 2019-11-18 18:20 | Inpatient (IN) | payer OTHER ==
[2019-11-18] MEDS ORDERED: SODIUM CHLORIDE 1,000 ML IV STA (18:26)
--- NOTE | 2019-11-18 18:31 | PDOC ---
Rapid Medical Evaluation Chief Complaint: Lightheaded Time Seen by Provider: 11/18/19 18:21 Medical Evaluation: Allergies Allergy/AdvReac Type Severity Reaction Status Date / Time No Known Allergies Allergy Verified 07/05/19 11:33 11/18/19 18:28 I performed a brief in-person evaluation of this patient. Pt is a 44 y/o female with a complex medical h/o who presents with dizziness, palpitations when walking, shortness of breath for the last 3 weeks. The patient was sent to the ED by Dr. Cotto. The patient states her sugar this morning was 30-40, but was 117 mg/dL prior to arrival. She denies fevers or chills. Pertinent physical exam findings: speaking in full sentences, nontoxic, no respiratory distress I have ordered the following: labs, ekg, fluids Patient to proceed to ED for further evaluation. Discharge Disposition - Diagnosis Lightheaded - Referrals - Patient Instructions - Post Discharge Activity
[2019-11-18 18:35] VITALS: BMI 23.5
--- NOTE | 2019-11-18 18:50 | PDOC ---
History of Present Illness - General Chief Complaint: Lightheaded Stated Complaint: VOMITING/NAUSEA Time Seen by Provider: 11/18/19 18:21 History Source: Patient Exam Limitations: No Limitations - History of Present Illness Initial Comments: 11/18/19 18:45 44 yo F with h/o T1DM, hemorrhoids, depression, anxiety, spasmodic dysphonia, migrainespresents to the ED complaining of dizziness, near syncope, and palpitations. Pt states that she was sent here by Dr Sequeira who has been working her up outpatient, however pts symptoms have worsened over the last 3 days prompting him to send her to the ED. Pt states that she has also been recording very low BG levels in the morning (30-40s) and her long acting insulin dose has been lowered but she is still having episodes of hypogycemia with symptoms. Pt states her dizziness is when she stands up from a seated position, described as the room spinning and followed by palpitations and shortness of breath, resolving on its own when the patient sits back down. Pt otherwise denies: fevers, chills, syncope, headaches, neck pain, chest pain, back pain, abdominal pain, nausea, vomiting, diarrhea, constipation. Past History - Medical History Allergies/Adverse Reactions: Allergies Allergy/AdvReac Type Severity Reaction Status Date / Time No Known Allergies Allergy Verified 11/18/19 18:29 Home Medications: Ambulatory Orders Soliqua 100 Unit-33 Mcg/ml Pen 10 units ASDIR 10/16/19 Sumatriptan Succinate 100 mg PO PRN PRN 10/16/19 Alprazolam [Xanax] 0.5 mg PO DAILY PRN 11/18/19 Insulin Lispro [Admelog] 10 unit SQ TID 11/18/19 Anemia: No Asthma: No Cancer: No Cardiac Disorders: (Atherosclerosis) CVA: No COPD: No CHF: No Dementia: No Diabetes: Yes GI Disorders: Yes (gastroperesis/ internal hemorrhoids/polyps with rectal bleeding/IBS) Disorders: Yes (gallstones) HTN: No Hypercholesterolemia: No Liver Disease: No Psychiatric Problems: Yes (DEPRESSION, anxiety) Seizures: No Thyroid Disease: No - Surgical History Abdominal Surgery: Yes (RIGHT ABD LIPOMA) Appendectomy: No Cardiac Surgery: No Cholecystectomy: No Lung Surgery: No Neurologic Surgery: No Orthopedic Surgery: No - Reproductive History Tubal Ligation: Yes - Immunization History Td Vaccination: Yes TDAP Vaccination: Yes Immunization Up to Date: No - Psycho-Social/Smoking History Smoking Status: No Smoking History: Never smoked Have you smoked in the past 12 months: No Number of Cigarettes Smoked Daily: 0 Information on smoking cessation initiated: No - Substance Abuse Hx (Audit-C & DAST Scrn) How often the patient has a drink containing alcohol: Never Score: In Men: 4 or > Positive; In Women: 3 or > Positive: 0 Screen Result (Pos requires Nsg. Audit-10AR): Negative In the last yr the pt used illegal drug/Rx for NonMed reason: No Score: Yes response is considered Positive: 0 Screen Result (Positive result requires Nsg. DAST-10): Negative Review of Systems - Review of Systems Constitutional: No: Chills, Fever, Weakness HEENTM: No: Blurred Vision Respiratory: Yes: Shortness of Breath Cardiac (ROS): Yes: Lightheadedness, Palpitations. No: Chest Pain ABD/GI: No: Abdominal Distended, Nausea, Vomiting : No: Burning, Dysuria Musculoskeletal: No: Back Pain Neurological: Yes: Dizziness. No: Headache, Numbness, Paresthesia, Tingling, Weakness *Physical Exam - Vital Signs Last Vital Signs Temp Pulse Resp BP Pulse Ox 99.5 F 103 H 17 121/75 100 11/18/19 18:26 11/18/19 18:26 11/18/19 18:26 11/18/19 18:26 11/18/19 18:26 - Physical Exam 11/18/19 18:49 Gen: AAOx 3, no acute distress, comfortable, no signs of respiratory distress HENT: atraumatic, normocephalic with no laceration or contusion. Nasal mucosa without erythema. Oropharynx without erythema or exudates. Mucous membranes moist. EYES: PERRL, EOM intact, conjunctiva pink NECK: supple; trachea midline; no JVD, no lymphadenopathy, or thyromegaly CV: RRR no murmurs, gallops, or rubs. CHEST: CTA b/l no wheezing, rales or rhonchi ABD: +BS/ND. no TTP; soft, no rebound, no guarding EXTREMITY: no cyanosis or erythema. 2+ dorsalis pedis, posterior tibial, and radial pulse. No pedal edema; no calf swelling or tenderness SKIN: no rash, warm and dry, no diaphoresis HEME: no purpura or ecchymosis NEURO: normal speech, CN II-XII intact, sensation intact, normal gait, no cerebellar deficits MS: 5/5 strength in all extremities, FROM intact in all extremities. ED Treatment Course - LABORATORY CBC & Chemistry Diagram: 11/18/19 19:00 11/18/19 19:00 Medical Decision Making - Medical Decision Making 11/18/19 18:49 44-year-old female multiple comorbidities, presenting to the ED complaining of dizziness near syncope and hypoglycemia Vital signs stable Will obtain CBC CMP magnesium troponin coags EKG chest x-ray and reassess based on results CXR WNL EKG NSR no st elevations or depressions Labs WNL, glucose 179 However patient has failed outpatient therapy of type one DM. Pt is not a safe discharge with consistent morning BG in the 30's. Therefore pt is to be admitted to the hospital for management of her Type 1 DM and glucose as well as cardiac monitoring. Pt admitted to medicine for further evaluation. Discharge - Discharge Information Problems reviewed: Yes Clinical Impression/Diagnosis: Lightheaded Condition: Stable - Admission Yes - Follow up/Referral Referrals: Zain Cotto MD [Primary Care Provider] - - Patient Discharge Instructions - Post Discharge Activity
[2019-11-18 19:31] LABS: BASO % 0.4 % (0-2.0); HEMATOCRIT 33.5 % (32.4-45.2); HEMOGLOBIN 10.7 GM/dL (10.7-15.3); LYMPH % 28.4 % (8-40); MCH 25.9 pg (25.7-33.7); MCHC 31.9 g/dl (32.0-36.0); MEAN PLT VOLUME 8.3 fl (7.5-11.1); MONO % 5.6 % (3.8-10.2); NEUT % 64.6 % (42.8-82.8); PLATELET COUNT 343 K/MM3 (134-434); RBC 4.13 M/mm3 (3.60-5.2); RDW 16.9 % (11.6-15.6); WHITE BLOOD COUNT 8.2 K/mm3 (4.0-10.0)
[2019-11-18 19:38] LABS: INR 1.1 (0.83-1.09)
[2019-11-18 19:40] LABS: ACTIVATED PTT 30.4 SECONDS (25.2-36.5)
[2019-11-18 20:01] LABS: ALBUMIN 3.7 g/dl (3.4-5.0); ALK PHOS 79 U/L (45-117); ANION GAP 9 MMOL/L (8-16); BILIRUBIN,TOTAL 0.4 mg/dL (0.2-1); BLOOD UREA NITROGEN 16.4 mg/dL (7-18); CALCIUM 9.2 mg/dL (8.5-10.1); CHLORIDE 109 mmol/L (98-107); CO2 25 mmol/L (21-32); CREATININE 1.1 mg/dL (0.55-1.3); GLUCOSE,RANDOM 179 mg/dL (74-106); MAGNESIUM 2.2 mg/dL (1.8-2.4); POTASSIUM 4.3 mmol/L (3.5-5.1); SGOT/AST 23 U/L (15-37); SGPT/ALT 32 U/L (13-61); SODIUM 143 mmol/L (136-145); TOT PROT 7.4 g/dl (6.4-8.2)
[2019-11-18] MEDS ORDERED: MECLIZINE HCL 25 MG TABLET (FP) PO ONE (20:36)
[2019-11-18] MEDS ORDERED: MECLIZINE HCL 25 MG TABLET (FP) ONE (21:00)
--- NOTE | 2019-11-18 23:07 | HP ---
<Boris Mcclelland - Last Filed: 11/19/19 04:01> CHIEF COMPLAINT: Neuroglycopenic symptoms secondary to hypoglycemia. PCP: Dr. Cotto HISTORY OF PRESENT ILLNESS: 44 y.o. F PMHx of T1DM, hemorrhoids, depression, anxiety and intermittent dysphonia presents to the ED due to dizziness, palpitations, and near syncopal event. Over the past 3 weeks she has been feeling weak and tired. For the past 3 days her symptoms have been worse. She got in contact with her PCP Dr. Cotto who has been managing her insulin requirements recently changing her soliqua dose form 30 units to 10 units due to repeated hypoglycemic episodes. Today she was sent to the ED by Dr. Cotto for further workup. Patient stated her morning glucose have been in the 30's. Anytime she stands she gets lightheaded, palpitations and diaphoretic that will resolve when she sits back down. Patient stated she now has some mild nausea and dizziness but denies chest pain, SOB and vomiting. She states she eats 1 meal a day between lunch and dinner and will typically check her glucose in the morning pre meal and at night. she also men tioned overnight she feels a squeezing sensation in her feet. 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 ER course was notable for: (1) BGM (2) Vitals Q1 (3) EKG Recent Travel: None PAST MEDICAL HISTORY: T1DM, hemorrhoids, depression, anxiety and intermittent dysphonia PAST SURGICAL HISTORY: Tubal ligation, lipoma & polyp excision's Social History: Smoking: No Alcohol: No Drugs: No Allergies No Known Allergies Allergy (Verified 11/18/19 18:29) HOME MEDICATIONS: Home Medications Medication Instructions Recorded Soliqua 100 Unit-33 Mcg/ml Pen 10 units ASDIR 10/16/19 Sumatriptan Succinate 100 mg PO PRN PRN 10/16/19 Alprazolam [Xanax] 0.5 mg PO DAILY PRN 11/18/19 Insulin Lispro [Admelog] 10 unit SQ TID 11/18/19 REVIEW OF SYSTEMS CONSTITUTIONAL: Generalized weakness, diaphoresis Absent: fever, chills, malaise, loss of appetite, weight change HEENT: Absent: rhinorrhea, nasal congestion, throat pain, throat swelling, difficulty swallowing, mouth swelling, ear pain, eye pain, visual changes CARDIOVASCULAR: Lightheadedness, syncope, palpitations Absent: chest pain, irregular heart rate, peripheral edema RESPIRATORY: Dyspnea with exertion Absent: cough, shortness of breath, orthopnea, wheezing, stridor, hemoptysis GASTROINTESTINAL: Absent: abdominal pain, abdominal distension, nausea, vomiting, diarrhea, constipation, melena, hematochezia GENITOURINARY: Absent: dysuria, frequency, urgency, hesitancy, hematuria, flank pain, genital pain MUSCULOSKELETAL: Absent: myalgia, arthralgia, joint swelling, back pain, neck pain SKIN: Absent: rash, itching, pallor HEMATOLOGIC/IMMUNOLOGIC: Absent: easy bleeding, easy bruising, lymphadenopathy, frequent infections ENDOCRINE: Absent: unexplained weight gain, unexplained weight loss, heat intolerance, cold intolerance NEUROLOGIC: Dizziness Absent: headache, focal weakness or paresthesias, unsteady gait, seizure, mental status changes, bladder or bowel incontinence PSYCHIATRIC: Absent: anxiety, depression, suicidal or homicidal ideation, hallucinations. PHYSICAL EXAMINATION Vital Signs - 24 hr 11/18/19 18:26 Temperature 99.5 F Pulse Rate 103 H Respiratory 17 Rate Blood Pressure 121/75 O2 Sat by Pulse 100 Oximetry (%) GENERAL: Awake, alert, and fully oriented, in no acute distress. HEAD: Normal with no signs of trauma. EYES: Pupils equal, round and reactive to light, extraocular movements intact, sclera anicteric, conjunctiva clear. EARS, NOSE, THROAT: Oropharynx clear without exudates. Moist mucous membranes. NECK: No JVD, or masses. LUNGS: Breath sounds equal, clear to auscultation bilaterally. No wheezes, and no crackles. No accessory muscle use. HEART: Regular rate and rhythm, normal S1 and S2 without murmur, rub or gallop. ABDOMEN: Soft, nontender, not distended, normoactive bowel sounds, no guarding, no rebound, no masses. MUSCULOSKELETAL: Normal range of motion. No CVA tenderness. UPPER EXTREMITIES: 2+ pulses, warm, well-perfused. No peripheral edema. LOWER EXTREMITIES: 2+ pulses, warm, well-perfused. No calf tenderness. No peripheral edema. NEUROLOGICAL: Cranial nerves II-XII intact. Normal speech. Normal gait. PSYCHIATRIC: Cooperative. Good eye contact. Appropriate mood and affect. SKIN: Warm, dry, normal turgor, no rashes or lesions noted. Laboratory Results - last 24 hr 11/18/19 11/18/19 11/18/19 19:00 19:00 19:00 WBC 8.2 RBC 4.13 Hgb 10.7 Hct 33.5 MCV 81.0 MCH 25.9 MCHC 31.9 L RDW 16.9 H Plt Count 343 MPV 8.3 Absolute Neuts (auto) 5.3 Neutrophils % 64.6 Lymphocytes % 28.4 D Monocytes % 5.6 Eosinophils % 1.0 Basophils % 0.4 Nucleated RBC % 0 PT with INR 13.00 INR 1.10 H PTT (Actin FS) 30.4 Sodium 143 Potassium 4.3 Chloride 109 H Carbon Dioxide 25 Anion Gap 9 BUN 16.4 Creatinine 1.1 Est GFR (CKD-EPI)AfAm 70.71 Est GFR (CKD-EPI)NonAf 61.01 POC Glucometer Random Glucose 179 H Calcium 9.2 Magnesium 2.2 Total Bilirubin 0.4 AST 23 ALT 32 Alkaline Phosphatase 79 Creatine Kinase 54 Troponin I < 0.02 Total Protein 7.4 Albumin 3.7 11/18/19 19:25 WBC RBC Hgb Hct MCV MCH MCHC RDW Plt Count MPV Absolute Neuts (auto) Neutrophils % Lymphocytes % Monocytes % Eosinophils % Basophils % Nucleated RBC % PT with INR INR PTT (Actin FS) Sodium Potassium Chloride Carbon Dioxide Anion Gap BUN Creatinine Est GFR (CKD-EPI)AfAm Est GFR (CKD-EPI)NonAf POC Glucometer 179 Random Glucose Calcium Magnesium Total Bilirubin AST ALT Alkaline Phosphatase Creatine Kinase Troponin I Total Protein Albumin ASSESSMENT/PLAN: 44 y.o. F PMHx of T1DM, hemorrhoids, depression, anxiety and intermittent dysphonia presents to the ED due to Neuroglycopenic symptoms secondary to hypoglycemia. # Episodic Hypoglycemia - Patient has been having symptomatic hypoglycemia (diaphoresis, palpitations and dizziness) - Morning glucoses have been reported in the 30's - Fingerstick glucose 179 - Patient placed on sliding scale will need close BG monitoring to avoid hypoglycemia - Frequent BGM ACHS - Order hemoglobin A1C - Vitals Q4 - Repeat orthostatics in the morning - Diabetic diet - Dextrose if patient is hypoglycemic - Orthostatic vitals: Supine BP 140/83 Pulse 86, Seated BP 133/83 Pulse 99, Standing BP 128/82 Pulse 94 # Anemia - Hgb 10.7 - Hct 33.5 - MCV 81 - Iron studies ordered will f/u # Covid - Covid PCR Ordered - PCR ordered due to geographic location of pandemic - Placed in isolation precautions # FEN - NS 1L given - Encourage PO intake - Diabetic diet # DVT Prophylaxis - Lovenox 40 mg SQ Daily # Dispo - Patient admitted to med surg - Will follow up on vitals and continue to monitor blood glucose levels ATTENDING PHYSICIAN STATEMENT I saw and evaluated the patient. I reviewed the resident's note and discussed the case with the resident. I agree with the resident's findings and plan as documented. SUBJECTIVE: OBJECTIVE: ASSESSMENT AND PLAN: <TitiIrene - Last Filed: 11/19/19 05:49> CHIEF COMPLAINT: PCP: HISTORY OF PRESENT ILLNESS: ER course was notable for: (1) (2) (3) Recent Travel: PAST MEDICAL HISTORY: PAST SURGICAL HISTORY: Social History: Smoking: Alcohol: Drugs: Allergies No Known Allergies Allergy (Verified 11/18/19 18:29) HOME MEDICATIONS: Home Medications Medication Instructions Recorded Soliqua 100 Unit-33 Mcg/ml Pen 10 units ASDIR 10/16/19 Sumatriptan Succinate 100 mg PO PRN PRN 10/16/19 Alprazolam [Xanax] 0.5 mg PO DAILY PRN 11/18/19 Insulin Lispro [Admelog] 10 unit SQ TID 11/18/19 REVIEW OF SYSTEMS CONSTITUTIONAL: Absent: fever, chills, diaphoresis, generalized weakness, malaise, loss of appetite, weight change HEENT: Absent: rhinorrhea, nasal congestion, throat pain, throat swelling, difficulty swallowing, mouth swelling, ear pain, eye pain, visual changes CARDIOVASCULAR: Absent: chest pain, syncope, palpitations, irregular heart rate, lightheadedness, peripheral edema RESPIRATORY: Absent: cough, shortness of breath, dyspnea with exertion, orthopnea, wheezing, stridor, hemoptysis GASTROINTESTINAL: Absent: abdominal pain, abdominal distension, nausea, vomiting, diarrhea, constipation, melena, hematochezia GENITOURINARY: Absent: dysuria, frequency, urgency, hesitancy, hematuria, flank pain, genital pain MUSCULOSKELETAL: Absent: myalgia, arthralgia, joint swelling, back pain, neck pain SKIN: Absent: rash, itching, pallor HEMATOLOGIC/IMMUNOLOGIC: Absent: easy bleeding, easy bruising, lymphadenopathy, frequent infections ENDOCRINE: Absent: unexplained weight gain, unexplained weight loss, heat intolerance, cold intolerance NEUROLOGIC: Absent: headache, focal weakness or paresthesias, dizziness, unsteady gait, seizure, mental status changes, bladder or bowel incontinence PSYCHIATRIC: Absent: anxiety, depression, suicidal or homicidal ideation, hallucinations. PHYSICAL EXAMINATION Vital Signs - 24 hr 11/18/19 11/18/19 11/19/19 18:26 23:08 01:32 Temperature 99.5 F 97.8 F 98.7 F Pulse Rate 103 H Pulse Rate [ 93 H 91 H Right Brachial] Respiratory 17 18 Rate Blood Pressure 121/75 Blood Pressure 122/72 124/78 [Right Arm] O2 Sat by Pulse 100 100 94 L Oximetry (%) GENERAL: Awake, alert, and fully oriented, in no acute distress. HEAD: Normal with no signs of trauma. EYES: Pupils equal, round and reactive to light, extraocular movements intact, sclera anicteric, conjunctiva clear. No lid lag. EARS, NOSE, THROAT: Ears normal, nares patent, oropharynx clear without exudates. Moist mucous membranes. NECK: Normal range of motion, supple without lymphadenopathy, JVD, or masses. LUNGS: Breath sounds equal, clear to auscultation bilaterally. No wheezes, and no crackles. No accessory muscle use. HEART: Regular rate and rhythm, normal S1 and S2 without murmur, rub or gallop. ABDOMEN: Soft, nontender, not distended, normoactive bowel sounds, no guarding, no rebound, no masses. No hepatomegaly or splenomegaly. MUSCULOSKELETAL: Normal range of motion at all joints. No bony deformities or tenderness. No CVA tenderness. UPPER EXTREMITIES: 2+ pulses, warm, well-perfused. No cyanosis. No clubbing. No peripheral edema. LOWER EXTREMITIES: 2+ pulses, warm, well-perfused. No calf tenderness. No periph eral edema. NEUROLOGICAL: Cranial nerves II-XII intact. Normal speech. Normal gait. PSYCHIATRIC: Cooperative. Good eye contact. Appropriate mood and affect. SKIN: Warm, dry, normal turgor, no rashes or lesions noted, normal capillary refill. Laboratory Results - last 24 hr 11/18/19 11/18/19 11/18/19 19:00 19:00 19:00 WBC 8.2 RBC 4.13 Hgb 10.7 Hct 33.5 MCV 81.0 MCH 25.9 MCHC 31.9 L RDW 16.9 H Plt Count 343 MPV 8.3 Absolute Neuts (auto) 5.3 Neutrophils % 64.6 Lymphocytes % 28.4 D Monocytes % 5.6 Eosinophils % 1.0 Basophils % 0.4 Nucleated RBC % 0 PT with INR 13.00 INR 1.10 H PTT (Actin FS) 30.4 Sodium 143 Potassium 4.3 Chloride 109 H Carbon Dioxide 25 Anion Gap 9 BUN 16.4 Creatinine 1.1 Est GFR (CKD-EPI)AfAm 70.71 Est GFR (CKD-EPI)NonAf 61.01 POC Glucometer Random Glucose 179 H Calcium 9.2 Magnesium 2.2 Total Bilirubin 0.4 AST 23 ALT 32 Alkaline Phosphatase 79 Creatine Kinase 54 Troponin I < 0.02 Total Protein 7.4 Albumin 3.7 11/18/19 19:25 WBC RBC Hgb Hct MCV MCH MCHC RDW Plt Count MPV Absolute Neuts (auto) Neutrophils % Lymphocytes % Monocytes % Eosinophils % Basophils % Nucleated RBC % PT with INR INR PTT (Actin FS) Sodium Potassium Chloride Carbon Dioxide Anion Gap BUN Creatinine Est GFR (CKD-EPI)AfAm Est GFR (CKD-EPI)NonAf POC Glucometer 179 Random Glucose Calcium Magnesium Total Bilirubin AST ALT Alkaline Phosphatase Creatine Kinase Troponin I Total Protein Albumin ASSESSMENT/PLAN: Visit type - Emergency Visit Emergency Visit: Yes ED Registration Date: 11/18/19 Care time: The patient presented to the Emergency Department on the above date and was hospitalized for further evaluation of their emergent condition. - New Patient This patient is new to me today: Yes Date on this admission: 11/19/19 - Critical Care Critical Care patient: No 44 y.o. Female with a PMHx notable for DM I , depression/ anxiety presents to the ED due to episodes of hypoglycemia. # Episodic Hypoglycemia - Insulin sliding scale with meals ; for now would hold levemir - monitor accuchecks - consider Endo eval in AM
[2019-11-19] MEDS ORDERED: LOPERAMIDE HCL 2 MG CAPSULE PO ONE (00:35)
[2019-11-19] MEDS ORDERED: LOPERAMIDE HCL 2 MG CAPSULE ONE (00:59)
[2019-11-19 06:52] LABS: HEMATOCRIT 31.9 % (32.4-45.2); HEMOGLOBIN 10.2 GM/dL (10.7-15.3); MCH 25.4 pg (25.7-33.7); MCHC 32.1 g/dl (32.0-36.0); MEAN CELL VOLUME 79.2 fl (80-96); MEAN PLT VOLUME 8.2 fl (7.5-11.1); PLATELET COUNT 315 K/MM3 (134-434); RBC 4.02 M/mm3 (3.60-5.2); RDW 16.8 % (11.6-15.6); WHITE BLOOD COUNT 7.4 K/mm3 (4.0-10.0)
[2019-11-19 07:16] LABS: IRON SERUM 71 ug/dL (50-175); TOTAL IRON BINDING CAPACITY 343 ug/dL (250-450)
[2019-11-19 07:19] LABS: ALBUMIN 3.1 g/dl (3.4-5.0); BILIRUBIN,TOTAL 0.3 mg/dL (0.2-1); CALCIUM 8.1 mg/dL (8.5-10.1); CREATININE 0.7 mg/dL (0.55-1.3); MAGNESIUM 2.1 mg/dL (1.8-2.4); PHOSPHOROUS 2.7 mg/dL (2.5-4.9); POTASSIUM 4.3 mmol/L (3.5-5.1); TOT PROT 6.6 g/dl (6.4-8.2)
[2019-11-19] MEDS: INSULIN SLIDING SCALE (NOVOLOG) 1 VIAL SQ SCH ×4 (07:55→21:12)
[2019-11-19] MEDS ORDERED: ENOXAPARIN NA (PORCINE) 40 MG/0.4 ML DISP.SYRIN SQ ONE (09:08)
[2019-11-19] MEDS: ENOXAPARIN NA (PORCINE) 40 MG/0.4 ML DISP.SYRIN SQ SCH (09:33)
[2019-11-19] MEDS ORDERED: INSULIN (LEVEMIR) 100 UNITS/ML UNITS SQ SCH (10:00)
--- NOTE | 2019-11-19 13:01 | PN ---
Progress Note, Physician Chief Complaint: Near syncope Dizziness History of Present Illness: NAD in a stretcher c/o dizziness only when she stands up from sitting position with increased HR (palpitations) Recently been more hypoglycemic, c/o decreased appetite, eats only once a day, states if she tries to eat in am, she starts to feel nauseous Has an upcoming appt with Dr Adrien Fall for GI workup. States recent echo + U/S carotid were normal in PCP's office. - Current Medication List Current Medications: Active Medications Enoxaparin Sodium (Lovenox -) 40 mg SQ DAILY [facility] Last Admin: 11/19/19 09:33 Dose: Not Given Documented by: Insulin Aspart (Novolog Vial Sliding Scale -) 1 vial SQ [facility]; Protocol Last Admin: 11/19/19 12:31 Dose: 6 units Documented by: - Objective Vital Signs: Vital Signs Temperature 98.6 F 11/19/19 11:54 Pulse Rate 84 11/19/19 11:54 Respiratory Rate 16 11/19/19 11:54 Blood Pressure 105/70 11/19/19 11:54 O2 Sat by Pulse Oximetry (%) 100 11/19/19 11:54 Constitutional: Yes: Well Nourished, No Distress, Calm Cardiovascular: Yes: Regular Rate and Rhythm Respiratory: Yes: Regular, CTA Bilaterally Gastrointestinal: Yes: Normal Bowel Sounds, Soft Genitourinary: Yes: WNL Musculoskeletal: Yes: WNL Extremities: Yes: WNL Edema: No Peripheral Pulses WNL: Yes Neurological: Yes: Alert, Oriented Psychiatric: Yes: Alert, Oriented Labs: CBC, BMP 11/19/19 05:54 11/19/19 05:54 INR, PTT INR 1.10 (0.83-1.09) H 11/18/19 19:00 Problem List - Problems (1) Diabetes Assessment/Plan: -Diabetic diet -Endocrine consult -BGM [facility] -ISS -A1c at 7.5 Problems reviewed: Yes Code(s): E11.9 - TYPE 2 DIABETES MELLITUS WITHOUT COMPLICATIONS Qualifiers: Diabetes mellitus type: type 1 Diabetes mellitus 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
[2019-11-19] MEDS ORDERED: ALPRAZolam 1 MG TABLET PO PRN (13:03)
--- NOTE | 2019-11-19 13:39 | EKG ---
Test Reason : Blood Pressure : / mmHG Vent. Rate : 099 BPM Atrial Rate : 099 BPM P-R Int : 142 ms QRS Dur : 082 ms QT Int : 356 ms P-R-T Axes : 063 060 056 degrees QTc Int : 456 ms NORMAL SINUS RHYTHM NORMAL ECG WHEN COMPARED WITH ECG OF 15-OCT-2019 18:06, NO SIGNIFICANT CHANGE WAS FOUND Confirmed by GEN POLK MD ([id number]) on 11/19/2019 1:39:01 PM Referred By: Confirmed By:GEN POLK MD
--- NOTE | 2019-11-19 13:47 | CONSULT ---
Consult Consult Specialty:: ENDOCRINE Referred by:: DR.RABADI HENRIQUEZ Reason for Consultation:: DMT1 - History of Present Illness Chief Complaint: HYPOGLYCEMIA NEUROHYPOGLYCEMIA UNAWARENESS History of Present Illness: 44 y.o. F PMHx of T1DM,Neuropathy,gastroparesis, hemorrhoids, depression, anxiety and presented to the ED for hypoglycemia dizziness, palpitations, and near syncopal event. Over the past 3 weeks she has been feeling weak and tired. For the past 3 days her symptoms have been worse. who has been managing her insulin requirements recently changing her soliqua dose form 30 units to 10 units due to repeated hypoglycemic she has neurohypoglycemic unawareness poor appetite,she has been taking standing dose admelog 10 iu acmeals. 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: Yes: Migraine Cardio/Vascular: Yes: Hyperlipdemia Pulmonary: Yes: Other (cough) Gastrointestinal: Yes: Irritable Bowel Disease, Pancreatitis ...LMP: 08/23/19 Psych: Yes: Anxiety, Depression Musculoskeletal: Yes: Chronic low back pain, Other (herniated discs) ENT: Yes: Sinusitis Endocrine: Yes: Diabetes Mellitus (IDDM) - Past Surgical History Past Surgical History: Yes: Tubal Ligation (2007 Laproscopic BTL) - Alcohol/Substance Use Hx Alcohol Use: No History of Substance Use: reports: None - Smoking History Smoking history: Never smoked Have you smoked in the past 12 months: No Aproximately how many cigarettes per day: 0 - Social History Usual Living Arrangement: Alone ADL: Independent History of Recent Travel: No Home Medications - Allergies Allergies/Adverse Reactions: Allergies Allergy/AdvReac Type Severity Reaction Status Date / Time No Known Allergies Allergy Verified 11/18/19 18:29 - Home Medications Home Medications: Ambulatory Orders Soliqua 100 Unit-33 Mcg/ml Pen 10 units ASDIR 10/16/19 Sumatriptan Succinate 100 mg PO PRN PRN 10/16/19 Alprazolam [Xanax] 0.5 mg PO DAILY PRN 11/18/19 Insulin Lispro [Admelog] 10 unit SQ TID 11/18/19 Physical Exam Vital Signs: Vital Signs Temperature 98.6 F 11/19/19 11:54 Pulse Rate 89 11/19/19 13:24 Respiratory Rate 16 11/19/19 11:54 Blood Pressure 105/67 11/19/19 13:24 O2 Sat by Pulse Oximetry (%) 100 11/19/19 11:54 Labs: CBC, BMP 11/19/19 05:54 11/19/19 05:54 Problem List - Problems (1) 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 Code(s): E10.610 - TYPE 1 DIABETES MELLITUS W DIABETIC NEUROPATHIC ARTHROPATHY (2) 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 Code(s): E10.610 - TYPE 1 DIABETES MELLITUS W DIABETIC NEUROPATHIC ARTHROPATHY (3) 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 Code(s): E10.610 - TYPE 1 DIABETES MELLITUS W DIABETIC NEUROPATHIC ARTHROPATHY (4) Abdominal pain Code(s): R10.9 - UNSPECIFIED ABDOMINAL PAIN Qualifiers: Abdominal location: generalized Qualified Code(s): R10.84 - Generalized abdominal pain (5) Back pain Code(s): M54.9 - DORSALGIA, UNSPECIFIED (6) Bilateral otitis media Code(s): H66.93 - OTITIS MEDIA, UNSPECIFIED, BILATERAL (7) Constipation Code(s): K59.00 - CONSTIPATION, UNSPECIFIED Assessment/Plan Current Active Problems DIABETES MELLITUS TYPE 1 GASTROPARESIS/NEUROPATHY HYPOGLYCEMIA UNAWARENESS HTN HLD Lightheaded (Acute) Abnormal Lab Results 11/18/19 11/18/19 11/18/19 19:00 19:00 19:00 Hgb Hct MCV MCH MCHC 31.9 L RDW 16.9 H INR 1.10 H Chloride 109 H Carbon Dioxide Anion Gap Random Glucose 179 H Hemoglobin A1c % Calcium Albumin Urine Glucose (UA) Urine Ketones 11/19/19 11/19/19 11/19/19 05:54 05:54 05:54 Hgb 10.2 L Hct 31.9 L MCV 79.2 L MCH 25.4 L MCHC RDW 16.8 H INR Chloride 112 H Carbon Dioxide 20 L Anion Gap 6 L Random Glucose 208 H Hemoglobin A1c % 7.5 H Calcium 8.1 L Albumin 3.1 L Urine Glucose (UA) Urine Ketones 11/19/19 13:55 Hgb Hct MCV MCH MCHC RDW INR Chloride Carbon Dioxide Anion Gap Random Glucose Hemoglobin A1c % Calcium Albumin Urine Glucose (UA) 3+ H Urine Ketones Trace H Laboratory Results - last 24 hr 11/18/19 11/18/19 11/18/19 19:00 19:00 19:00 WBC 8.2 RBC 4.13 Hgb 10.7 Hct 33.5 MCV 81.0 MCH 25.9 MCHC 31.9 L RDW 16.9 H Plt Count 343 MPV 8.3 Absolute Neuts (auto) 5.3 Neutrophils % 64.6 Lymphocytes % 28.4 D Monocytes % 5.6 Eosinophils % 1.0 Basophils % 0.4 Nucleated RBC % 0 PT with INR 13.00 INR 1.10 H PTT (Actin FS) 30.4 Sodium 143 Potassium 4.3 Chloride 109 H Carbon Dioxide 25 Anion Gap 9 BUN 16.4 Creatinine 1.1 Est GFR (CKD-EPI)AfAm 70.71 Est GFR (CKD-EPI)NonAf 61.01 POC Glucometer Random Glucose 179 H Hemoglobin A1c % Calcium 9.2 Phosphorus Magnesium 2.2 Iron TIBC Iron Saturation Unsaturated IBC Total Bilirubin 0.4 AST 23 ALT 32 Alkaline Phosphatase 79 Creatine Kinase 54 Troponin I < 0.02 Total Protein 7.4 Albumin 3.7 Urine Color Urine Appearance Urine pH Ur Specific [place] Urine Protein Urine Glucose (UA) Urine Ketones Urine Blood Urine Nitrite Urine Bilirubin Urine Urobilinogen Ur Leukocyte Esterase 11/18/19 11/19/19 11/19/19 19:25 05:54 05:54 WBC 7.4 RBC 4.02 Hgb 10.2 L Hct 31.9 L MCV 79.2 L MCH 25.4 L MCHC 32.1 RDW 16.8 H Plt Count 315 MPV 8.2 Absolute Neuts (auto) Neutrophils % Lymphocytes % Monocytes % Eosinophils % Basophils % Nucleated RBC % PT with INR INR PTT (Actin FS) Sodium 139 Potassium 4.3 Chloride 112 H Carbon Dioxide 20 L Anion Gap 6 L BUN 16.0 Creatinine 0.7 Est GFR (CKD-EPI)AfAm 122.13 Est GFR (CKD-EPI)NonAf 105.37 POC Glucometer 179 Random Glucose 208 H Hemoglobin A1c % Calcium 8.1 L Phosphorus 2.7 Magnesium 2.1 Iron TIBC Iron Saturation Unsaturated IBC Total Bilirubin 0.3 AST 24 ALT 31 Alkaline Phosphatase 94 Creatine Kinase Troponin I Total Protein 6.6 Albumin 3.1 L Urine Color Urine Appearance Urine pH Ur Specific [place] Urine Protein Urine Glucose (UA) Urine Ketones Urine Blood Urine Nitrite Urine Bilirubin Urine Urobilinogen Ur Leukocyte Esterase 11/19/19 11/19/19 11/19/19 05:54 05:54 07:31 WBC RBC Hgb Hct MCV MCH MCHC RDW Plt Count MPV Absolute Neuts (auto) Neutrophils % Lymphocytes % Monocytes % Eosinophils % Basophils % Nucleated RBC % PT with INR INR PTT (Actin FS) Sodium Potassium Chloride Carbon Dioxide Anion Gap BUN Creatinine Est GFR (CKD-EPI)AfAm Est GFR (CKD-EPI)NonAf POC Glucometer 192 Random Glucose Hemoglobin A1c % 7.5 H Calcium Phosphorus Magnesium Iron 71 TIBC 343 Iron Saturation 20 Unsaturated IBC 272 Total Bilirubin AST ALT Alkaline Phosphatase Creatine Kinase Troponin I Total Protein Albumin Urine Color Urine Appearance Urine pH Ur Specific [place] Urine Protein Urine Glucose (UA) Urine Ketones Urine Blood Urine Nitrite Urine Bilirubin Urine Urobilinogen Ur Leukocyte Esterase 11/19/19 11/19/19 11/19/19 11:47 13:55 16:35 WBC RBC Hgb Hct MCV MCH MCHC RDW Plt Count MPV Absolute Neuts (auto) Neutrophils % Lymphocytes % Monocytes % Eosinophils % Basophils % Nucleated RBC % PT with INR INR PTT (Actin FS) Sodium Potassium Chloride Carbon Dioxide Anion Gap BUN Creatinine Est GFR (CKD-EPI)AfAm Est GFR (CKD-EPI)NonAf POC Glucometer 295 272 Random Glucose Hemoglobin A1c % Calcium Phosphorus Magnesium Iron TIBC Iron Saturation Unsaturated IBC Total Bilirubin AST ALT Alkaline Phosphatase Creatine Kinase Troponin I Total Protein Albumin Urine Color Yellow Urine Appearance Clear Urine pH 5.5 Ur Specific [place] 1.019 Urine Protein Negative Urine Glucose (UA) 3+ H Urine Ketones Trace H Urine Blood Negative Urine Nitrite Negative Urine Bilirubin Negative Urine Urobilinogen 0.2 Ur Leukocyte Esterase Negative PLAN: BGM QID NOVOLOG SCALE GI CONSULT FOR GP DIABETIC LEVEMIR 10 UNITS AM DIET AND NUTRITION
--- NOTE | 2019-11-19 14:01 | CON.CARD ---
Consult Consult Specialty:: Cardiology Reason for Consultation:: Near syncope - History of Present Illness Chief Complaint: Dizziness History of Present Illness: This is a 44 year old female with a PMH of type 1 diabetes, depression, anxiety, and migraines. She presents to the ED complaining of dizziness and palpitations. She was sent by her PCP because her symptoms have worsened in the last 3 days. Of note she has notices low blood glucose levels in the mornings (30 - 40's). She becomes dizzy when she goes from sitting to standing. She feels the room spinning and this is followed by palpitations. EKG 11/18/2019 NSR at 99 BPM with normal intervals, normal axis, and NSSTTW changes. 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 Cardio/Vascular: Yes: Hyperlipdemia Pulmonary: Yes: Other (cough) Gastrointestinal: Yes: Irritable Bowel Disease, Pancreatitis ...LMP: 08/23/19 Psych: Yes: Anxiety, Depression Musculoskeletal: Yes: Chronic low back pain, Other (herniated discs) ENT: Yes: Sinusitis Endocrine: Yes: Diabetes Mellitus (IDDM) - Past Surgical History Past Surgical History: Yes: Tubal Ligation (2007 Laproscopic BTL) - Alcohol/Substance Use Hx Alcohol Use: No History of Substance Use: reports: None - Smoking History Smoking history: Never smoked Have you smoked in the past 12 months: No Aproximately how many cigarettes per day: 0 - Social History Usual Living Arrangement: Alone ADL: Independent History of Recent Travel: No Home Medications - Allergies Allergies/Adverse Reactions: Allergies Allergy/AdvReac Type Severity Reaction Status Date / Time No Known Allergies Allergy Verified 11/18/19 18:29 - Home Medications Home Medications: Ambulatory Orders Soliqua 100 Unit-33 Mcg/ml Pen 10 units ASDIR 10/16/19 Sumatriptan Succinate 100 mg PO PRN PRN 10/16/19 Alprazolam [Xanax] 0.5 mg PO DAILY PRN 11/18/19 Insulin Lispro [Admelog] 10 unit SQ TID 11/18/19 Vital Signs: Vital Signs Temperature 98.6 F 11/19/19 11:54 Pulse Rate 89 11/19/19 13:24 Respiratory Rate 16 07/10/20 11:54 Blood Pressure 105/67 11/19/19 13:24 O2 Sat by Pulse Oximetry (%) 100 11/19/19 11:54 Constitutional: Yes: No Distress Eyes: Yes: WNL HENT: Yes: WNL Neck: Yes: WNL Respiratory: Yes: CTA Bilaterally Gastrointestinal: Yes: Soft Cardiovascular: Yes: Regular Rate and Rhythm Heart Sounds: Yes: S1, S2 Edema: No Neurological: Yes: Alert, Oriented - Other Data Labs, Other Data: CBC, BMP 11/19/19 05:54 11/19/19 05:54 INR, PTT INR 1.10 (0.83-1.09) H 11/18/19 19:00 Troponin, BNP 11/18/19 19:00 Troponin I < 0.02 Troponin, BNP 11/18/19 19:00 Troponin I < 0.02 Assessment/Plan 44 year old female with a PMH of type 1 diabetes, depression, anxiety, and migraines. She presents to the ED complaining of dizziness and palpitations. She was sent by her PCP because her symptoms have worsened in the last 3 days. Of note she has notices low blood glucose levels in the mornings (30 - 40's). She becomes dizzy when she goes from sitting to standing. She feels the room spinning and this is followed by palpitations. EKG 11/18/2019 NSR at 99 BPM with normal intervals, normal axis, and NSSTTW changes. Trops negative Vital supine: BP 105/67 mmHg HR 89 BPM Vitals sitting: BP 123/63 mmHg HR 88 BPM Vitals standing: BP 93/61 mmHg HR 94 BPM Orthostatic Hypotension This may be a sign that she has Diabetic Autonomic Neuropathy. First is try non pharmacologic approaches such as liberalizing sodium and fluid in her diet. She states that she has tried this and even started drinking Pedialyte without relief. Thigh-high Compression stocking may be helpful to prevent venous pooling, but they are often difficult to tolerate, especially in the summer. In terms of medical therapy, would use either midodrine or droxidopa (difficult to get). I would start low with midodrine 2.5 mg BID and recheck her orthostatics. The last dose of midodrine should be given six hours before bedtime to avoid supine hypertension. It can be titrated up as needed to a maximum dose of 10 mg TID. Obtain echocardiogram results (she states she had a recent echo as an outpatient).
[2019-11-19 14:37] LABS: PH,URINE 5.5 (5.0-8.0); URINE APPEARANCE CLEAR; URINE BILIRUBIN NEGATIVE (NEGATIVE); URINE COLOR YELLOW; URINE GLUCOSE (UA) 3+ (NEGATIVE); URINE KETONE TRACE (NEGATIVE); URINE LEUK ESTERASE NEGATIVE (NEGATIVE); URINE NITRITE NEGATIVE (NEGATIVE); URINE PROTEIN NEGATIVE (NEGATIVE); URINE UROBILINOGEN 0.2 mg/dL (0.2-1.0)
--- NOTE | 2019-11-19 15:41 | ECHO ---
Version: 1 Name: ANAHI BAUER Exam: Adult Echocardiogram Study Date: 11/19/2019, 2:17 PM Age: 44 Years MMode/2D Measurements & Calculations IVSd: 0.93 cm LVIDs: 2.46 cm LVIDd: 4.1 cm LVPWd: 0.88 cm LAV (MOD-bp): 52.1 ml ACS: 1.75 cm Ao root diam: 2.9 cm LVOT diam: 2.03 cm LA dimension: 2.9 cm Doppler Measurements & Calculations MV E max matheus: 90.2 cm/sec Med E/e': 11.7 MV A max matheus: 92.6 cm/sec Med Peak E' Matheus: 7.7 cm/sec MV E/A: 0.97 Lat E/e': 7.5 Lat Peak E' Matheus: 12.0 cm/sec Ao max P.7 mmHg CASSY(I,D): 2.6 cm Ao mean P.4 mmHg LV V1 mean: 65.4 cm/sec Ao V2 max: 119.4 cm/sec LV V1 mean P.97 mmHg PI end-d matheus: 84.2 cm/sec Left Ventricle Left ventricular systolic function is normal. Ejection Fraction = 55-60%. Right Ventricle The right ventricle is normal in size and function. Atria Normal left and right atrial size and function. Mitral Valve The mitral valve is normal in structure and function. There is no mitral valve stenosis. There is tr alirio to mild mitral regurgitation. Tricuspid Valve The tricuspid valve is normal in structure and function. There is mild tricuspid regurgitation. Aortic Valve The aortic valve is trileaflet. No hemodynamically significant valvular aortic stenosis. No aortic regurgitation is present. Pulmonic Valve The pulmonic valve is not well seen, but is grossly normal. There is no pulmonic valvular stenosis. Mild pulmonic valvular regurgitation. Great Vessels The aortic root is normal size. Pericardium/Pleura There is no pericardial effusion. Summary Statements Left ventricular systolic function is normal. Ejection Fraction = 55-60%. The right ventricle is normal in size and function. There is trace to mild mitral regurgitation. There is mild tricuspid regurgitation. The aortic root is normal size. There is no pericardial effusion. MD Fulton *Asad 11/19/2019, 3:41 PM Ordering Physician: Darwin Saunders Referring Physician: DARWIN FUNES Performed By: Aditi Conner
[2019-11-20] MEDS: METOCLOPRAMIDE HCL 10 MG TABLET (FP) PO SCH ×3 (05:59→17:19)
[2019-11-20] MEDS: INSULIN SLIDING SCALE (NOVOLOG) 1 VIAL SQ SCH ×4 (06:00→21:55)
[2019-11-20] MEDS ORDERED: PT OWN MED DRAWER 7, Y5N ONE ×2 (09:38→17:16)
[2019-11-20] MEDS: MIDODRINE HCL 2.5 MG TABLET PO SCH ×2 (10:05→17:19)
[2019-11-20] MEDS: ENOXAPARIN NA (PORCINE) 40 MG/0.4 ML DISP.SYRIN SQ SCH (10:05)
--- NOTE | 2019-11-20 14:42 | PN ---
Progress Note, Physician Chief Complaint: EVENTS AND NOTES REVIEWED PATIENT AWAKE ALERT FEELS GOOD +HYPOTENSION DIZZINESS WHEN STANDING - Current Medication List Current Medications: Active Medications Acetaminophen (Tylenol -) 650 mg PO Q4H PRN PRN Reason: FEVER Alprazolam (Xanax) 0.5 mg PO DAILY PRN PRN Reason: ANXIETY Enoxaparin Sodium (Lovenox -) 40 mg SQ DAILY [facility] Last Admin: 11/20/19 10:05 Dose: Not Given Documented by: Insulin Aspart (Novolog Vial Sliding Scale -) 1 vial SQ [facility]; Protocol Last Admin: 11/20/19 10:09 Dose: 4 units Documented by: Metoclopramide HCl (Reglan -) 5 mg PO TIDAC [facility] Last Admin: 11/20/19 10:06 Dose: 5 mg Documented by: Midodrine (Proamatine -) 2.5 mg PO BID-MID [facility] Last Admin: 11/20/19 10:05 Dose: 2.5 mg Documented by: - Objective Vital Signs: Vital Signs Temperature 98 F 11/20/19 09:14 Pulse Rate 85 11/20/19 09:58 Respiratory Rate 18 11/20/19 09:14 Blood Pressure 118/70 11/20/19 09:58 O2 Sat by Pulse Oximetry (%) 100 11/20/19 09:00 Constitutional: Yes: Mild Distress Cardiovascular: Yes: Regular Rate and Rhythm Respiratory: Yes: WNL Gastrointestinal: Yes: WNL Genitourinary: Yes: WNL Musculoskeletal: Yes: WNL Extremities: Yes: WNL Peripheral Pulses WNL: Yes Neurological: Yes: Weakness Labs: CBC, BMP 11/19/19 05:54 11/19/19 05:54 INR, PTT INR 1.10 (0.83-1.09) H 11/18/19 19:00 Problem List - Problems (1) Orthostatic hypotension Code(s): I95.1 - ORTHOSTATIC HYPOTENSION (2) Orthostatic dizziness Code(s): R42 - DIZZINESS AND GIDDINESS (3) Lightheaded Code(s): R42 - DIZZINESS AND GIDDINESS (4) 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
--- NOTE | 2019-11-20 18:56 | CON.NEURO ---
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 Cardio/Vascular: Yes: Hyperlipdemia Pulmonary: Yes: Other (cough) Gastrointestinal: Yes: Irritable Bowel Disease, Pancreatitis ...LMP: 08/23/19 ...: No Psych: Yes: Anxiety, Depression Musculoskeletal: Yes: Chronic low back pain, Other (herniated discs) ENT: Yes: Sinusitis Endocrine: Yes: Diabetes Mellitus (IDDM) - Past Surgical History Past Surgical History: Yes: Tubal Ligation (2008 Laproscopic BTL) - Alcohol/Substance Use Hx Alcohol Use: No History of Substance Use: reports: None - Smoking History Smoking history: Never smoked Have you smoked in the past 12 months: No Aproximately how many cigarettes per day: 0 - Social History Usual Living Arrangement: Alone ADL: Independent History of Recent Travel: No Home Medications - Allergies Allergies/Adverse Reactions: Allergies Allergy/AdvReac Type Severity Reaction Status Date / Time No Known Allergies Allergy Verified 11/18/19 18:29 - Home Medications Home Medications: Ambulatory Orders Soliqua 100 Unit-33 Mcg/ml Pen 10 units ASDIR 10/16/19 Sumatriptan Succinate 100 mg PO PRN PRN 10/16/19 Alprazolam [Xanax] 0.5 mg PO DAILY PRN 11/18/19 Insulin Lispro [Admelog] 10 unit SQ TID 11/18/19 Physical Exam-Neuro Vital Signs: Vital Signs Temperature 98 F 11/20/19 09:14 Pulse Rate 93 H 11/20/19 17:53 Respiratory Rate 18 11/20/19 09:14 Blood Pressure 98/60 11/20/19 17:53 O2 Sat by Pulse Oximetry (%) 100 11/20/19 09:00 Labs: CBC, BMP 11/19/19 05:54 11/19/19 05:54 INR, PTT INR 1.10 (0.83-1.09) H 11/18/19 19:00 Assessment/Plan cc Dizziness and episodes of Hypoglycemia HPI 44 year old female histoyr of DM, Depression, anxiety came with feeling dizziness, palpitation and found to have postural hypotension and recurrent episode of hypoglycemia. Pateint has no LOC, no headhace, no weakness, dysphagia , dysarthria or diplopia. She describes dizziness as lightheadedness. She denies any vertigo sensation. PAST MEDICAL HISTORY: T1DM, hemorrhoids, depression, anxiety and intermittent dysphonia PAST SURGICAL HISTORY: Tubal ligation, lipoma & polyp excision's Social History: Smoking: No Alcohol: No Drugs: No Allergies No Known Allergies Allergy (Verified 11/18/19 18:29) HOME MEDICATIONS: Home Medications Medication Instructions Recorded Soliqua 100 Unit-33 Mcg/ml Pen 10 units ASDIR 10/16/19 Sumatriptan Succinate 100 mg PO PRN PRN 10/16/19 Alprazolam [Xanax] 0.5 mg PO DAILY PRN 11/18/19 Insulin Lispro [Admelog] 10 unit SQ TID 11/18/19 ROS,FH,SH reviewed in chart NEUROLOGICAL EXAMINATION Alert oriented x 3, speech is normal, neck is supple vss eomi, pupils reactive no face asymmetry moving all ext sensation is diminished in lower extremity upto mid feet reflex are diminished ct head not done Assessment/Plan Recurrent episode of dizziness, no evidence of stroke , tia, most likley related to postural hypotension and recurrent hypoglycemia. Patient may have autonomic neuropathy, and she also have evience of distal sensory neuropathy Plan: no need for brain imaging b12,foalte tsh - orthostatis management - fall precautions Thanking you so much Jaquan Díaz MD
[2019-11-20] MEDS ORDERED: INSULIN (NOVOLOG) ASPART 100 UNITS/ML 10ML VIAL ONE (20:58)
[2019-11-20] MEDS: ACETAMINOPHEN 325 MG TABLET (FP) PO PRN (21:53)
[2019-11-20] MEDS ORDERED: INSULIN SLIDING SCALE (NOVOLOG) 1 VIAL SQ SCH (22:56)
--- NOTE | 2019-11-20 23:05 | PN ---
Progress Note (short form) - Note Progress Note: high blood sugars despite poor appetite and nausea Current Active Problems Lightheaded (Acute) Nausea (Acute) Orthostatic dizziness (Acute) Orthostatic hypotension 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 (Acute) Abnormal Lab Results 11/19/19 22:30 Free T4 0.71 L Laboratory Results - last 24 hr 11/19/19 11/19/19 11/20/19 03:30 22:30 05:47 POC Glucometer 287 Vitamin B12 598 TSH 2.43 Free T4 0.71 L COVID-19 ([facility]) Not detected 11/20/19 11/20/19 11/20/19 10:08 16:10 21:50 POC Glucometer 237 376 313 Vitamin B12 TSH Free T4 COVID-19 ([facility]) Laboratory Tests 11/20/19 11/20/19 11/20/19 05:47 10:08 16:10 POC Glucometer 287 237 376 11/20/19 21:50 POC Glucometer 313 plan: levemir 15 units am levemir 10 units hs bgm qid novolog scale Problem List - Problems (1) 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 Code(s): E10.610 - TYPE 1 DIABETES MELLITUS W DIABETIC NEUROPATHIC ARTHROPATHY (2) 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 Code(s): E10.610 - TYPE 1 DIABETES MELLITUS W DIABETIC NEUROPATHIC ARTHROPATHY (3) 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 Code(s): E10.610 - TYPE 1 DIABETES MELLITUS W DIABETIC NEUROPATHIC ARTHROPATHY (4) Abdominal pain Code(s): R10.9 - UNSPECIFIED ABDOMINAL PAIN Qualifiers: Abdominal location: generalized Qualified Code(s): R10.84 - Generalized abdominal pain (5) Back pain Code(s): M54.9 - DORSALGIA, UNSPECIFIED (6) Bilateral otitis media Code(s): H66.93 - OTITIS MEDIA, UNSPECIFIED, BILATERAL (7) Constipation Code(s): K59.00 - CONSTIPATION, UNSPECIFIED
[2019-11-21] MEDS: METOCLOPRAMIDE HCL 10 MG TABLET (FP) PO SCH ×3 (06:00→16:23)
[2019-11-21] MEDS: ENOXAPARIN NA (PORCINE) 40 MG/0.4 ML DISP.SYRIN SQ SCH (09:00)
[2019-11-21] MEDS: MIDODRINE HCL 2.5 MG TABLET PO SCH ×2 (09:01→17:01)
[2019-11-21] MEDS ORDERED: INSULIN (LEVEMIR) 100 UNITS/ML UNITS SQ ONE ×2 (10:52→11:30)
--- NOTE | 2019-11-21 11:14 | PN ---
Progress Note, Physician Chief Complaint: STILL DIZZY/LIGHTHEADEDNESS ORTHOSTATIC + ON VS CHECK - Current Medication List Current Medications: Active Medications Acetaminophen (Tylenol -) 650 mg PO Q4H PRN PRN Reason: FEVER Last Admin: 11/20/19 21:53 Dose: 650 mg Documented by: Alprazolam (Xanax) 0.5 mg PO DAILY PRN PRN Reason: ANXIETY Last Admin: 11/21/19 09:00 Dose: 0.5 mg Documented by: Enoxaparin Sodium (Lovenox -) 40 mg SQ DAILY [facility] Last Admin: 11/21/19 09:00 Dose: Not Given Documented by: Insulin Detemir (Levemir Vial) 10 units SQ ONCE ONE Stop: 11/22/19 10:51 Insulin Detemir (Levemir Vial) 15 units SQ AM [facility] Metoclopramide HCl (Reglan -) 5 mg PO TIDAC [facility] Last Admin: 11/21/19 06:00 Dose: 5 mg Documented by: Midodrine (Proamatine -) 2.5 mg PO BID-MID [facility] Last Admin: 11/21/19 09:01 Dose: 2.5 mg Documented by: - Objective Vital Signs: Vital Signs Temperature 98 F 11/21/19 09:00 Pulse Rate 86 11/21/19 09:00 Respiratory Rate 17 11/21/19 09:00 Blood Pressure 95/65 11/21/19 09:00 O2 Sat by Pulse Oximetry (%) 100 11/21/19 09:00 Constitutional: Yes: Mild Distress Cardiovascular: Yes: Regular Rate and Rhythm Respiratory: Yes: WNL Gastrointestinal: Yes: WNL Labs: CBC, BMP 11/19/19 05:54 11/19/19 05:54 INR, PTT INR 1.10 (0.83-1.09) H 11/18/19 19:00 Problem List - Problems (1) Orthostatic hypotension Code(s): I95.1 - ORTHOSTATIC HYPOTENSION (2) Orthostatic dizziness Code(s): R42 - DIZZINESS AND GIDDINESS (3) Lightheaded Code(s): R42 - DIZZINESS AND GIDDINESS (4) 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N NEUROLOGY EVAL APPRECIATED
[2019-11-21] MEDS ORDERED: INSULIN SLIDING SCALE (NOVOLOG) 1 VIAL SQ SCH (16:30)
--- NOTE | 2019-11-21 19:35 | PN ---
Progress Note (short form) - Note Progress Note: high sugars appetite improved Laboratory Results - last 24 hr 11/20/19 11/21/19 11/21/19 21:50 05:57 10:31 POC Glucometer 313 336 267 11/21/19 11/21/19 15:59 17:41 POC Glucometer 506 367 plan: BGM NEW SCALE CONSIDER CGMS INSULIN PUMP DEVICE OUTPATIENT MOTILITY RX IMPROVING SYMPTOMS LEVEMIR 20 UNTS AM Problem List - Problems (1) 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 Code(s): E10.610 - TYPE 1 DIABETES MELLITUS W DIABETIC NEUROPATHIC ARTHROPATHY (2) 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 Code(s): E10.610 - TYPE 1 DIABETES MELLITUS W DIABETIC NEUROPATHIC ARTHROPATHY (3) 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 Code(s): E10.610 - TYPE 1 DIABETES MELLITUS W DIABETIC NEUROPATHIC ARTHROPATHY (4) Abdominal pain Code(s): R10.9 - UNSPECIFIED ABDOMINAL PAIN Qualifiers: Abdominal location: generalized Qualified Code(s): R10.84 - Generalized abdominal pain (5) Back pain Code(s): M54.9 - DORSALGIA, UNSPECIFIED (6) Bilateral otitis media Code(s): H66.93 - OTITIS MEDIA, UNSPECIFIED, BILATERAL (7) Constipation Code(s): K59.00 - CONSTIPATION, UNSPECIFIED
[2019-11-21] MEDS ORDERED: INSULIN (NOVOLOG) ASPART 100 UNITS/ML 10ML VIAL ONE (21:04)
[2019-11-21] MEDS: INSULIN SLIDING SCALE (NOVOLOG) 1 VIAL SQ SCH (21:06)
[2019-11-21] MEDS ORDERED: INSULIN (LEVEMIR) 100 UNITS/ML UNITS SQ SCH ×2 (22:00)
[2019-11-22] MEDS ORDERED: INSULIN (LEVEMIR) 100 UNITS/ML UNITS SQ SCH ×4 (07:00→20:55)
[2019-11-22] MEDS: INSULIN SLIDING SCALE (NOVOLOG) 1 VIAL SQ SCH ×4 (07:13→21:07)
[2019-11-22] MEDS: METOCLOPRAMIDE HCL 10 MG TABLET (FP) PO SCH ×3 (07:20→16:35)
[2019-11-22 08:56] LABS: BASO % 0.5 % (0-2.0); EOS % 0.9 % (0-4.5); HEMATOCRIT 33.9 % (32.4-45.2); LYMPH % 22.6 % (8-40); MCH 25.8 pg (25.7-33.7); MCHC 32.6 g/dl (32.0-36.0); MEAN CELL VOLUME 78.9 fl (80-96); MEAN PLT VOLUME 8.3 fl (7.5-11.1); MONO % 4.7 % (3.8-10.2); NEUT % 71.3 % (42.8-82.8); PLATELET COUNT 336 K/MM3 (134-434); RBC 4.29 M/mm3 (3.60-5.2); RDW 16.4 % (11.6-15.6); WHITE BLOOD COUNT 8.4 K/mm3 (4.0-10.0)
--- NOTE | 2019-11-22 09:07 | PN ---
Progress Note, Physician - Current Medication List Current Medications: Active Medications Acetaminophen (Tylenol -) 650 mg PO Q4H PRN PRN Reason: FEVER Last Admin: 11/20/19 21:53 Dose: 650 mg Documented by: Alprazolam (Xanax) 0.5 mg PO DAILY PRN PRN Reason: ANXIETY Last Admin: 11/21/19 09:00 Dose: 0.5 mg Documented by: Enoxaparin Sodium (Lovenox -) [address] [facility] Last Admin: 11/21/19 09:00 Dose: Not Given Documented by: Insulin Aspart (Novolog Vial Sliding Scale -) 1 vial SQ [facility]; Protocol Last Admin: 11/22/19 07:13 Dose: 8 units Documented by: Insulin Detemir (Levemir Vial) [address] [facility] Last Admin: 11/22/19 07:09 Dose: 20 units Documented by: Metoclopramide HCl (Reglan -) [address] [facility] Last Admin: 11/22/19 07:20 Dose: Not Given Documented by: Midodrine (Proamatine -) 2.5 mg PO BID-MID [facility] Last Admin: 11/21/19 17:01 Dose: 2.5 mg Documented by: - Objective Vital Signs: Vital Signs Temperature 98.0 F 11/22/19 07:50 Pulse Rate 104 H 11/22/19 07:50 Respiratory Rate 20 11/22/19 07:57 Blood Pressure 94/61 11/22/19 07:50 O2 Sat by Pulse Oximetry (%) 99 11/22/19 07:57 Cardiovascular: Yes: Regular Rate and Rhythm Respiratory: Yes: Regular, CTA Bilaterally Gastrointestinal: Yes: Normal Bowel Sounds, Soft Labs: CBC, BMP 11/22/19 08:37 INR, PTT INR 1.10 (0.83-1.09) H 11/18/19 19:00 Problem List - Problems (1) Diabetes Assessment/Plan: UNCONTROLLED ENDO ON CASE OBSERVE ON LEVEMIR Code(s): E11.9 - TYPE 2 DIABETES MELLITUS WITHOUT COMPLICATIONS Qualifiers: Diabetes mellitus type: type 1 Diabetes mellitus technician terminal and repeater insulin use: with technician terminal and repeater use Diabetes mellitus complication status: with unspecified complications (2) Orthostatic hypotension Assessment/Plan: MAYBE DUE TO VOLUME DEPLETION FROM HYPERGLYCEMIA CORTISOL LEVELS L Code(s): I95.1 - ORTHOSTATIC HYPOTENSION (3) Dizziness Assessment/Plan: ABOVE Code(s): R42 - DIZZINESS AND GIDDINESS
[2019-11-22] MEDS ORDERED: PNEUMOC 13-VAL CONJ-DIP CRM/PF 0.5 ML DISP.SYRIN IM ONE (09:11)
[2019-11-22 09:29] LABS: ALBUMIN 3.3 g/dl (3.4-5.0); BILIRUBIN,TOTAL 0.3 mg/dL (0.2-1); BLOOD UREA NITROGEN 23.4 mg/dL (7-18); CALCIUM 9.1 mg/dL (8.5-10.1); POTASSIUM 4.6 mmol/L (3.5-5.1); TOT PROT 7.1 g/dl (6.4-8.2)
--- NOTE | 2019-11-22 09:33 | PN ---
Progress Note (short form) - Note Progress Note: 44 year old female histoyr of DM, Depression, anxiety came with feeling dizziness, palpitation and found to have postural hypotension and recurrent episode of hypoglycemia. Pateint has no LOC, no headhace, no weakness, dysphagia , dysarthria or diplopia. She describes dizziness as lightheadedness. She denies any vertigo sensation. She continue to have feeling dizziness, postural hypotension. She was started on midodrine over the weekend. NEUROLOGICAL EXAMINATION Alert oriented x 3, speech is normal, neck is supple vss eomi, pupils reactive no face asymmetry moving all ext sensation is diminished in lower extremity upto mid feet reflex are diminished ct head not done Assessment/Plan Recurrent episode of dizziness, no evidence of stroke , tia, most likley related to postural hypotension and recurrent hypoglycemia. Patient may have autonomic neuropathy, and she also have evience of distal sensory neuropathy Plan: no need for brain imaging - continue midodrine - Diabetic control - get up slowly, and drink plenty of water. - no need for brain imaging - fall precautions Thanking you so much Jaquan Díaz MD
[2019-11-22] MEDS ORDERED: PNEUMOCOCCAL 23 VACCINE 0.5 ML VIAL IM ONE (09:45)
[2019-11-22] MEDS ORDERED: PT OWN MED DRAWER 7, Y5N ONE ×2 (10:15→17:33)
[2019-11-22] MEDS: SODIUM CHLORIDE 0.45%/POT 20 MEQ/1,000 ML INFUS.BAG IV SCH ×2 (10:23→19:00)
[2019-11-22] MEDS: MIDODRINE HCL 2.5 MG TABLET PO SCH ×2 (10:23→17:38)
[2019-11-22] MEDS: ENOXAPARIN NA (PORCINE) 40 MG/0.4 ML DISP.SYRIN SQ SCH (10:24)
[2019-11-22] MEDS: ACETAMINOPHEN 325 MG TABLET (FP) PO PRN (16:33)
[2019-11-23] MEDS: SODIUM CHLORIDE 0.45%/POT 20 MEQ/1,000 ML INFUS.BAG IV SCH ×2 (02:54→09:05)
[2019-11-23] MEDS: INSULIN SLIDING SCALE (NOVOLOG) 1 VIAL SQ SCH ×2 (06:01→11:41)
[2019-11-23] MEDS: METOCLOPRAMIDE HCL 10 MG TABLET (FP) PO SCH ×2 (06:01→11:41)
[2019-11-23 09:05] VITALS: BP 90/58; PULSE 91; TEMP 98
[2019-11-23] MEDS: MIDODRINE HCL 2.5 MG TABLET PO SCH (09:05)
[2019-11-23] MEDS: ENOXAPARIN NA (PORCINE) 40 MG/0.4 ML DISP.SYRIN SQ SCH (09:05)
--- NOTE | 2019-11-23 10:21 | DS ---
Physical Examination Vital Signs: Vital Signs Temperature 98.0 F 11/23/19 08:52 Pulse Rate 91 H 11/23/19 08:52 Respiratory Rate 18 11/23/19 09:00 Blood Pressure 90/58 L 11/23/19 08:52 O2 Sat by Pulse Oximetry (%) 99 11/23/19 09:00 Findings/Remarks: 44 y.o. F PMHx of T1DM, hemorrhoids, depression, anxiety and intermittent dysphonia presents to the ED due to dizziness, palpitations, and near syncopal event. Over the past 3 weeks she has been feeling weak and tired. For the past 3 days her symptoms have been worse. She got in contact with her PCP Dr. Cotto who has been managing her insulin requirements recently changing her soliqua dose form 30 units to 10 units due to repeated hypoglycemic episodes. Today she was sent to the ED by Dr. Cotto for further workup. Patient stated her morning glucose have been in the 30's. Anytime she stands she gets lightheaded, palpitations and diaphoretic that will resolve when she sits back down. Patient stated she now has some mild nausea and dizziness but denies chest pain, SOB and vomiting. She states she eats 1 meal a day between lunch and dinner and will typically check her glucose in the morning pre meal and at night. she also mentioned overnight she feels a squeezing sensation in her feet. 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 Pt was seen by Cardiology and neurology, was diagnosed with Cardiovascular aut onomic Neuropathy, Started on Midodrine 2.5 mg po TID. Tolerating well. Constitutional: Yes: Well Nourished, No Distress, Calm Cardiovascular: Yes: Regular Rate and Rhythm Respiratory: Yes: Regular, CTA Bilaterally Gastrointestinal: Yes: Normal Bowel Sounds, Soft Renal/: Yes: WNL Musculoskeletal: Yes: WNL Extremities: Yes: WNL Edema: No Peripheral Pulses WNL: Yes Neurological: Yes: Alert, Oriented Psychiatric: Yes: Alert, Oriented Labs: CBC, BMP 11/22/19 08:37 11/22/19 08:37 Discharge Summary Problems reviewed: Yes Reason For Visit: HYPOGLYCEMIA Current Active Problems Lightheaded (Acute) Nausea (Acute) Orthostatic dizziness (Acute) Orthostatic hypotension (Acute) 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 (Acute) 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 (Acute) 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
[2019-11-23] MEDS ORDERED: MIDODRINE HCL 2.5 MG TABLET PO SCH (14:00)
--- NOTE | 2019-11-23 14:25 | PN ---
Progress Note (short form) - Note Progress Note: 44 year old female histoyr of DM, Depression, anxiety came with feeling dizziness, palpitation and found to have postural hypotension and recurrent episode of hypoglycemia. Pateint has no LOC, no headhace, no weakness, dysphagia , dysarthria or diplopia. She describes dizziness as lightheadedness. She denies any vertigo sensation. She continue to have feeling dizziness, postural hypotension. She was started on midodrine over the weekend. She is feeling better . NEUROLOGICAL EXAMINATION Alert oriented x 3, speech is normal, neck is supple vss eomi, pupils reactive no face asymmetry moving all ext sensation is diminished in lower extremity upto mid feet reflex are diminished ct head not done Assessment/Plan Recurrent episode of dizziness, no evidence of stroke , tia, most likley related to postural hypotension and recurrent hypoglycemia. Patient may have autonomic neuropathy, and she also have evience of distal sensory neuropathy Plan: no need for brain imaging - continue midodrine , as she is feeling better - Diabetic control - get up slowly, and drink plenty of water. follow up outpatient. Thanking you so much Jaquan Díaz MD
== END 2019-11-23 14:07 | disposition home or self-care (01) | DRG 48 ==
LOC: JER 18:20 → JERBED 20:31 → J6S 11-19 15:56
PROVIDERS: ADMIT Internal Medicine; ATTEND Family Medicine
DX: E11.43 Type 2 diabetes mellitus with diabetic autonomic (poly)neuropathy (principal); E11.649 Type 2 diabetes mellitus with hypoglycemia without coma; R42 Dizziness and giddiness; I95.1 Orthostatic hypotension; F41.8 Other specified anxiety disorders; R11.0 Nausea; D64.9 Anemia, unspecified; Z79.4 Long term (current) use of insulin
CPT/HCPCS: 36415; 71046-TC-FY; 80053; 81003; 82533; 82550; 82607; 82728; 82962; 83036; 83540; 83550; 83735; 84100; 84439; 84443; 84484; 85025; 85027; 85610; 85730; 93005; 93010; 93306-TC; 99285-25; J3480; U0003

== ENCOUNTER 2020-06-14 16:16 | Inpatient (IN) | payer OTHER ==
[2020-06-14] MEDS ORDERED: ACETAMINOPHEN 1000 MG/100 ML VIAL (NON FORMULARY) IVPB ONE (16:20)
[2020-06-14] MEDS ORDERED: ONDANSETRON 4 MG/2 ML VIAL IVPUSH ONE (16:20)
[2020-06-14] MEDS ORDERED: SODIUM CHLORIDE 0.9% 500 ML INFUS.BAG IV ONE (16:21)
[2020-06-14] MEDS ORDERED: ACETAMINOPHEN INJECTION 100 ML IVPB ONE (17:31)
[2020-06-14] MEDS ORDERED: ONDANSETRON 4 MG/2 ML VIAL ONE (17:32)
[2020-06-14 18:04] LABS: BASO % 2.5 % (0-2.0); EOS % 0.5 % (0-4.5); HEMATOCRIT 35.2 % (32.4-45.2); HEMOGLOBIN 11.3 GM/dl (10.7-15.3); LYMPH % 17.4 % (8-40); MCH 25.7 pg (25.7-33.7); MCHC 32.1 g/dl (32.0-36.0); MEAN CELL VOLUME 80.1 fl (80-96); MONO % 5.3 % (3.8-10.2); NEUT % 74.3 % (42.8-82.8); PLATELET COUNT 377 K/MM3 (134-434); RBC 4.39 M/mm3 (3.60-5.2); RDW 14.5 % (11.6-15.6); WHITE BLOOD COUNT 14.3 K/mm3 (4.0-10.8)
[2020-06-14 18:14] LABS: ACTIVATED PTT 27.6 SECONDS (25.2-36.5)
[2020-06-14 18:18] LABS: INR 1.26 (0.82-1.09); PROTHROMBIN TIME (PATIENT) 13.9 SEC (10.2-13.0)
[2020-06-14 18:20] LABS: BILIRUBIN,TOTAL 1.5 mg/dl (0.2-1); CREATININE 0.8 mg/dl (0.55-1.3); TOT PROT 7.8 g/dl (6.4-8.2)
[2020-06-14 18:21] LABS: POTASSIUM 4.7 mmol/L (3.5-5.1)
[2020-06-14] MEDS ORDERED: morphine CARPU-JECT 4 MG/1 ML DISP.SYRIN IVPUSH ONE ×2 (18:28→20:16)
[2020-06-14] MEDS ORDERED: morphine SULFATE 4 MG/ML VIAL ONE (18:32)
[2020-06-14] MEDS ORDERED: PIPERACILLIN/TAZOB 3.375 GM 3.375 GM in DEXTROSE 5%-WATER - 50 ML IVPB ONE (19:51)
[2020-06-14] MEDS ORDERED: PIPERACILLIN/TAZOBACTAM 3.375 GM VIAL IVPB ONE ×2 (19:54→20:12)
[2020-06-14] MEDS ORDERED: DEXTROSE 5%-0.45% SALINE 1,000 ML IV SCH (20:15)
[2020-06-14 22:04] LABS: EPITHELIAL CELLS FEW /hpf
[2020-06-14 22:06] VITALS: BMI 26.1
[2020-06-15] MEDS ORDERED: PIPERACILLIN/TAZOBACTAM 3.375 GM VIAL IVPB ONE ×3 (01:31→16:47)
[2020-06-15] MEDS ORDERED: DEXTROSE 5%-WATER - 50 ML IVPB ONE ×3 (01:32→16:47)
[2020-06-15] MEDS: PIPERACILLIN/TAZOB 3.375 GM 3.375 GM in DEXTROSE 5%-WATER - 50 ML IVPB SCH ×3 (02:58→17:25)
[2020-06-15] MEDS: ONDANSETRON 4 MG/2 ML VIAL IVPUSH PRN ×2 (03:25→08:17)
[2020-06-15] MEDS ORDERED: PIPERACILLIN/TAZOB 3.375 GM 3.375 GM in DEXTROSE 5%-WATER - 50 ML IVPB SCH ×2 (04:00→18:00)
[2020-06-15 08:21] LABS: BASO % 0.5 % (0-2.0); HEMATOCRIT 33.7 % (32.4-45.2); HEMOGLOBIN 10.6 GM/dl (10.7-15.3); MCHC 31.6 g/dl (32.0-36.0); MEAN CELL VOLUME 82.3 fl (80-96); MEAN PLT VOLUME 8.4 fl (7.5-11.1); MONO % 7.3 % (3.8-10.2); NEUT % 78.2 % (42.8-82.8); PLATELET COUNT 321 K/MM3 (134-434); RBC 4.09 M/mm3 (3.60-5.2); RDW 15.1 % (11.6-15.6); WHITE BLOOD COUNT 11.4 K/mm3 (4.0-10.8)
[2020-06-15 08:24] LABS: ALBUMIN 3.3 g/dl (3.4-5.0); BILIRUBIN,TOTAL 0.6 mg/dl (0.2-1); CALCIUM 8.2 mg/dl (8.5-10); CREATININE 0.7 mg/dl (0.55-1.3); POTASSIUM 4.3 mmol/L (3.5-5.1); TOT PROT 6.5 g/dl (6.4-8.2)
[2020-06-15] MEDS ORDERED: BUPIVACAINE HCL/PF 2.5 MG/ML - 30 ML VIAL IJ ONE (10:26)
[2020-06-15] MEDS ORDERED: oxyCODONE HCL 5 MG TABLET PO PRN (10:35)
[2020-06-15] MEDS ORDERED: LACTATED RINGERS SOLUTION 1,000 ML IV SCH (10:45)
[2020-06-15] MEDS ORDERED: MIDAZOLAM HCL 2 MG/2 ML SINGLE DOSE VIAL ONE (10:51)
[2020-06-15] MEDS ORDERED: SUCCINYLCHOLINE CHLORIDE 200 MG/10 ML SYRINGE ONE (10:55)
[2020-06-15] MEDS ORDERED: HYDROmorphone HCL/PF 1 MG/ML VIAL ONE (10:56)
[2020-06-15] MEDS ORDERED: ACETAMINOPHEN 325 MG TABLET (FP) PO PRN (11:11)
[2020-06-15] MEDS ORDERED: DEXAMETHASONE SOD PHOSPHATE 4 MG/1 ML VIAL ONE (11:47)
[2020-06-15] MEDS ORDERED: ONDANSETRON 4 MG/2 ML VIAL ONE (11:47)
[2020-06-15] MEDS ORDERED: ONDANSETRON 4 MG/2 ML VIAL IVPUSH PRN (12:55)
[2020-06-15] MEDS ORDERED: morphine SULFATE 4 MG/ML VIAL IVPUSH PRN ×2 (12:55)
[2020-06-15] MEDS ORDERED: DEXTROSE 5%-0.45% SALINE 1,000 ML IV SCH (12:55)
[2020-06-15] MEDS: oxyCODONE HCL 5 MG TABLET PO PRN (16:19)
[2020-06-16] MEDS ORDERED: PIPERACILLIN/TAZOBACTAM 3.375 GM VIAL IVPB ONE ×2 (01:24→09:34)
[2020-06-16] MEDS ORDERED: DEXTROSE 5%-WATER - 50 ML IVPB ONE (01:24)
[2020-06-16] MEDS: PIPERACILLIN/TAZOB 3.375 GM 3.375 GM in DEXTROSE 5%-WATER - 50 ML IVPB SCH ×2 (01:26→09:40)
[2020-06-16 06:57] VITALS: BP 103/53; PULSE 98; TEMP 98.4
[2020-06-16] MEDS ORDERED: INSULIN SLIDING SCALE (NOVOLOG) 1 VIAL SQ SCH (07:00)
[2020-06-16] MEDS ORDERED: INSULIN (LEVEMIR) 100 UNITS/ML UNITS SQ ONE (08:15)
[2020-06-16] MEDS: oxyCODONE HCL 5 MG TABLET PO PRN (08:42)
[2020-06-16] MEDS ORDERED: PANTOPRAZOLE SODIUM 40 MG VIAL IVPUSH SCH (10:00)
[2020-06-16] MEDS ORDERED: ENOXAPARIN NA (PORCINE) 40 MG/0.4 ML DISP.SYRIN SQ SCH (10:00)
== END 2020-06-16 12:31 | disposition home or self-care (01) | DRG 225 ==
LOC: FER 16:16 → FM/S 21:44
PROVIDERS: ADMIT Family Medicine; ATTEND Family Medicine
PROC: 0DTJ4ZZ Resection of Appendix, Percutaneous Endoscopic Approach (ICD-10-PCS; principal; 2020-06-15 11:35)
DX: K35.80 Unspecified acute appendicitis (principal); N83.291 Other ovarian cyst, right side; E11.9 Type 2 diabetes mellitus without complications; E78.5 Hyperlipidemia, unspecified; D72.829 Elevated white blood cell count, unspecified; K51.90 Ulcerative colitis, unspecified, without complications; E11.43 Type 2 diabetes mellitus with diabetic autonomic (poly)neuropathy; G90.9 Disorder of the autonomic nervous system, unspecified; F41.8 Other specified anxiety disorders
CPT/HCPCS: 36415; 74177-TC; 80053; 81003; 81015; 82962; 83605; 84703; 85025; 85610; 85730; 86850; 86900; 86901; 87040; 87086; 87186; 88304-TC; 94760; 99285-25; C9803; J0131; Q9967; U0003

== ENCOUNTER 2020-11-25 14:00 | Inpatient (IN) | payer OTHER ==
[2020-11-25 14:28] VITALS: BMI 25.7
[2020-11-25 15:16] LABS: BASO % 1.1 % (0-2.0); EOS % 0.7 % (0-4.5); HEMATOCRIT 37.1 % (32.4-45.2); HEMOGLOBIN 12.2 GM/dL (10.7-15.3); LYMPH % 31.8 % (8-40); MCH 26.6 pg (25.7-33.7); MCHC 32.9 g/dl (32.0-36.0); MEAN CELL VOLUME 80.9 fl (80-96); MEAN PLT VOLUME 8.2 fl (7.5-11.1); MONO % 5.8 % (3.8-10.2); NEUT % 60.6 % (42.8-82.8); PLATELET COUNT 406 10^3/uL (134-434); RBC 4.59 M/mm3 (3.60-5.2); RDW 15.6 % (11.6-15.6); WHITE BLOOD COUNT 7.2 K/mm3 (4.0-10.0)
[2020-11-25] MEDS ORDERED: SODIUM CHLORIDE 1,000 ML IV STA (15:24)
[2020-11-25 15:27] LABS: CHLORIDE 102 mmol/L (98-107); SODIUM 137 mmol/L (136-145)
[2020-11-25 15:29] LABS: CALCIUM 9.7 mg/dL (8.5-10.1)
[2020-11-25 15:30] LABS: ANION GAP 13 MMOL/L (8-16); BLOOD UREA NITROGEN 21.5 mg/dL (7-18); CO2 23 mmol/L (21-32); GLUCOSE,RANDOM 195 mg/dL (74-106)
[2020-11-25 15:33] LABS: SGOT/AST 28 U/L (15-37); SGPT/ALT 27 U/L (13-61)
[2020-11-25 15:34] LABS: BILIRUBIN,TOTAL 0.6 mg/dL (0.2-1); TOT PROT 8.2 g/dl (6.4-8.2)
[2020-11-25 15:35] LABS: ALK PHOS 92 U/L (45-117)
[2020-11-25] MEDS ORDERED: MIDODRINE HCL 5 MG TABLET PO ONE (16:01)
[2020-11-25] MEDS ORDERED: ONDANSETRON 4 MG/2 ML VIAL IVPUSH ONE (19:49)
[2020-11-25] MEDS ORDERED: ONDANSETRON 4 MG/2 ML VIAL ONE (19:55)
[2020-11-25 22:08] LABS: EPI CELLS 6 /uL (0-25.1); HYALINE CASTS 2 /uL (0-3.1); PH,URINE 5.5 (5.0-8.0); URINE APPEARANCE CLEAR; URINE BACTERIA 184 /uL (0-1359); URINE BILIRUBIN NEGATIVE (NEGATIVE); URINE COLOR YELLOW; URINE GLUCOSE (UA) 3+ (NEGATIVE); URINE KETONE 3+ (NEGATIVE); URINE LEUK ESTERASE NEGATIVE (NEGATIVE); URINE NITRITE NEGATIVE (NEGATIVE); URINE PROTEIN NEGATIVE (NEGATIVE); URINE WBC 22 /uL (0-25.8)
[2020-11-25 22:35] LABS: URINE RBC 30.9 /uL (0-23.9)
[2020-11-25] MEDS: INSULIN SLIDING SCALE (NOVOLOG) 1 VIAL SQ SCH (22:56)
[2020-11-26] MEDS: ALPRAZolam 0.25 MG TABLET PO PRN
[2020-11-26] MEDS: traMADol HCL 50 MG TABLET PO PRN (00:02)
[2020-11-26 06:44] LABS: BASO % 0.8 % (0-2.0); EOS % 1.8 % (0-4.5); HEMATOCRIT 35.2 % (32.4-45.2); HEMOGLOBIN 11.4 GM/dL (10.7-15.3); LYMPH % 43.7 % (8-40); MCH 26.2 pg (25.7-33.7); MCHC 32.4 g/dl (32.0-36.0); MEAN CELL VOLUME 81.1 fl (80-96); MEAN PLT VOLUME 8.3 fl (7.5-11.1); MONO % 5.3 % (3.8-10.2); NEUT % 48.4 % (42.8-82.8); PLATELET COUNT 366 10^3/uL (134-434); RBC 4.33 M/mm3 (3.60-5.2); RDW 15.7 % (11.6-15.6); WHITE BLOOD COUNT 6.7 K/mm3 (4.0-10.0)
[2020-11-26 07:01] LABS: CHLORIDE 102 mmol/L (98-107); SODIUM 134 mmol/L (136-145)
[2020-11-26 07:12] LABS: ALBUMIN 3.5 g/dl (3.4-5.0); BLOOD UREA NITROGEN 19.7 mg/dL (7-18); GLUCOSE,RANDOM 286 mg/dL (74-106); HDL CHOLESTEROL 68 mg/dL (40-60)
[2020-11-26 07:13] LABS: BILIRUBIN,TOTAL 0.4 mg/dL (0.2-1)
[2020-11-26 07:14] LABS: ALK PHOS 82 U/L (45-117)
[2020-11-26 07:15] LABS: CHOLESTEROL 229 mg/dL (50-200); CREATININE 0.9 mg/dL (0.55-1.3); SGOT/AST 17 U/L (15-37); SGPT/ALT 24 U/L (13-61); TRIGLYCERIDES 115 mg/dL (0-150)
[2020-11-26 07:16] LABS: LDL CHOLESTEROL (ONLY SJRH) 135 mg/dL (5-100); TOT PROT 7.1 g/dl (6.4-8.2)
[2020-11-26 07:17] LABS: CALCIUM 8.7 mg/dL (8.5-10.1)
[2020-11-26 07:18] LABS: ANION GAP 10 MMOL/L (8-16); CO2 23 mmol/L (21-32); MAGNESIUM 1.9 mg/dL (1.8-2.4)
[2020-11-26] MEDS: INSULIN SLIDING SCALE (NOVOLOG) 1 VIAL SQ SCH ×4 (07:35→21:57)
[2020-11-26] MEDS: MIDODRINE HCL 5 MG TABLET PO SCH ×3 (10:22→17:12)
[2020-11-26] MEDS: ASPIRIN 81 MG CHEWABLE TABLETS PO SCH (10:22)
[2020-11-26] MEDS: ONDANSETRON 4 MG/2 ML VIAL IVPUSH PRN (10:57)
[2020-11-27] MEDS: INSULIN (LEVEMIR) 100 UNITS/ML UNITS SQ SCH ×2 (06:26→22:06)
[2020-11-27] MEDS: INSULIN SLIDING SCALE (NOVOLOG) 1 VIAL SQ SCH ×4 (06:26→21:47)
[2020-11-27] MEDS: ONDANSETRON 4 MG/2 ML VIAL IVPUSH PRN (07:57)
[2020-11-27] MEDS: MIDODRINE HCL 5 MG TABLET PO SCH ×3 (09:27→17:29)
[2020-11-27] MEDS: ASPIRIN 81 MG CHEWABLE TABLETS PO SCH (09:27)
[2020-11-27] MEDS ORDERED: MIDODRINE HCL 5 MG TABLET PO ONE (10:16)
[2020-11-27] MEDS: ALPRAZolam 0.25 MG TABLET PO PRN (18:28)
[2020-11-28] MEDS: INSULIN SLIDING SCALE (NOVOLOG) 1 VIAL SQ SCH ×4 (06:31→21:46)
[2020-11-28] MEDS: INSULIN (LEVEMIR) 100 UNITS/ML UNITS SQ SCH ×2 (06:32→21:45)
[2020-11-28] MEDS: ASPIRIN 81 MG CHEWABLE TABLETS PO SCH (09:08)
[2020-11-28] MEDS: MIDODRINE HCL 5 MG TABLET PO SCH ×3 (09:08→18:49)
[2020-11-28] MEDS: POTASSIUM CHLORIDE 10 MEQ in SODIUM CHLORIDE 1,000 ML IVPB SCH ×2 (09:22→17:29)
[2020-11-28 10:30] LABS: BASO % 1.2 % (0-2.0); EOS % 1.2 % (0-4.5); HEMATOCRIT 35.9 % (32.4-45.2); HEMOGLOBIN 11.8 GM/dL (10.7-15.3); MCH 26.5 pg (25.7-33.7); MCHC 32.8 g/dl (32.0-36.0); MEAN CELL VOLUME 80.7 fl (80-96); MEAN PLT VOLUME 7.9 fl (7.5-11.1); MONO % 5.8 % (3.8-10.2); NEUT % 63.8 % (42.8-82.8); PLATELET COUNT 360 10^3/uL (134-434); RBC 4.45 M/mm3 (3.60-5.2); RDW 16.2 % (11.6-15.6); WHITE BLOOD COUNT 6.9 K/mm3 (4.0-10.0)
[2020-11-28 10:52] LABS: CALCIUM 9.4 mg/dL (8.5-10.1)
[2020-11-28 10:53] LABS: ALBUMIN 3.6 g/dl (3.4-5.0); BLOOD UREA NITROGEN 14.2 mg/dL (7-18)
[2020-11-28 10:59] LABS: BILIRUBIN,TOTAL 0.4 mg/dL (0.2-1); TOT PROT 7.4 g/dl (6.4-8.2)
[2020-11-28] MEDS: FLUDROCORTISONE ACETATE 0.1 MG TABLET (FP) PO SCH (12:39)
[2020-11-28] MEDS ORDERED: PT OWN MED DRAWER 7, Y5N ONE (17:27)
[2020-11-28] MEDS: ATORVASTATIN CA 20 MG TABLET (FP) PO SCH ×2 (21:44→21:51)
[2020-11-28] MEDS: ALPRAZolam 0.25 MG TABLET PO PRN (21:56)
[2020-11-29] MEDS: POTASSIUM CHLORIDE 10 MEQ in SODIUM CHLORIDE 1,000 ML IVPB SCH ×4 (01:08→21:14)
[2020-11-29] MEDS: INSULIN (LEVEMIR) 100 UNITS/ML UNITS SQ SCH ×2 (06:37→22:40)
[2020-11-29] MEDS: INSULIN SLIDING SCALE (NOVOLOG) 1 VIAL SQ SCH ×4 (06:37→22:41)
[2020-11-29] MEDS: MIDODRINE HCL 5 MG TABLET PO SCH (09:11)
[2020-11-29] MEDS: ASPIRIN 81 MG CHEWABLE TABLETS PO SCH (09:11)
[2020-11-29] MEDS: FLUDROCORTISONE ACETATE 0.1 MG TABLET (FP) PO SCH (09:15)
[2020-11-29] MEDS: HEPARIN NA (PORCINE) 5,000 UNITS/ML 1ML VIAL SQ SCH ×2 (09:59→22:40)
[2020-11-29 11:27] LABS: BASO % 0.9 % (0-2.0); HEMATOCRIT 34.3 % (32.4-45.2); HEMOGLOBIN 11.1 GM/dL (10.7-15.3); LYMPH % 35.5 % (8-40); MCH 26.3 pg (25.7-33.7); MCHC 32.4 g/dl (32.0-36.0); MEAN CELL VOLUME 81.2 fl (80-96); MEAN PLT VOLUME 8.2 fl (7.5-11.1); MONO % 6.1 % (3.8-10.2); NEUT % 56.5 % (42.8-82.8); PLATELET COUNT 372 10^3/uL (134-434); RBC 4.23 M/mm3 (3.60-5.2); WHITE BLOOD COUNT 5.1 K/mm3 (4.0-10.0)
[2020-11-29 11:45] LABS: CHLORIDE 112 mmol/L (98-107); SODIUM 143 mmol/L (136-145)
[2020-11-29 11:46] LABS: CALCIUM 8.7 mg/dL (8.5-10.1)
[2020-11-29 11:48] LABS: ALBUMIN 3.4 g/dl (3.4-5.0); ANION GAP 6 MMOL/L (8-16); CO2 25 mmol/L (21-32); GLUCOSE,RANDOM 87 mg/dL (74-106)
[2020-11-29 11:51] LABS: CREATININE 0.7 mg/dL (0.55-1.3); SGOT/AST 30 U/L (15-37); SGPT/ALT 32 U/L (13-61)
[2020-11-29 11:53] LABS: BILIRUBIN,TOTAL 0.3 mg/dL (0.2-1)
[2020-11-29 11:54] LABS: ALK PHOS 78 U/L (45-117)
[2020-11-29] MEDS: ALPRAZolam 0.25 MG TABLET PO PRN (11:59)
[2020-11-29] MEDS ORDERED: ALPRAZolam 0.25 MG TABLET PO ONE (19:54)
[2020-11-29] MEDS: ATORVASTATIN CA 20 MG TABLET (FP) PO SCH (22:40)
[2020-11-29] MEDS: traMADol HCL 50 MG TABLET PO PRN (22:45)
[2020-11-30] MEDS: POTASSIUM CHLORIDE 10 MEQ in SODIUM CHLORIDE 1,000 ML IVPB SCH ×3 (06:29→16:01)
[2020-11-30] MEDS: INSULIN (LEVEMIR) 100 UNITS/ML UNITS SQ SCH ×2 (06:29→22:43)
[2020-11-30] MEDS: INSULIN SLIDING SCALE (NOVOLOG) 1 VIAL SQ SCH ×4 (06:30→22:42)
[2020-11-30] MEDS ORDERED: COSYNTROPIN 0.25 MG VIAL IVPUSH SCH (07:00)
[2020-11-30] MEDS ORDERED: REGADENOSON 0.4 MG/5 ML PRE-FILLED SYRINGE IVPUSH ONE ×2 (09:41→10:15)
[2020-11-30] MEDS: HEPARIN NA (PORCINE) 5,000 UNITS/ML 1ML VIAL SQ SCH ×3 (13:22→22:33)
[2020-11-30] MEDS: ASPIRIN 81 MG CHEWABLE TABLETS PO SCH (13:22)
[2020-11-30] MEDS: FLUDROCORTISONE ACETATE 0.1 MG TABLET (FP) PO SCH (13:22)
[2020-11-30] MEDS: traMADol HCL 50 MG TABLET PO PRN (13:37)
[2020-11-30] MEDS: ATORVASTATIN CA 20 MG TABLET (FP) PO SCH (22:37)
[2020-11-30] MEDS: ALPRAZolam 0.25 MG TABLET PO PRN (22:38)
[2020-12-01] MEDS: POTASSIUM CHLORIDE 10 MEQ in SODIUM CHLORIDE 1,000 ML IVPB SCH ×3 (02:07→21:42)
[2020-12-01] MEDS ORDERED: COSYNTROPIN 0.25 MG VIAL IVPUSH ONE (06:00)
[2020-12-01] MEDS: INSULIN (LEVEMIR) 100 UNITS/ML UNITS SQ SCH ×2 (06:07→21:27)
[2020-12-01] MEDS: INSULIN SLIDING SCALE (NOVOLOG) 1 VIAL SQ SCH ×4 (06:07→21:28)
[2020-12-01] MEDS: HEPARIN NA (PORCINE) 5,000 UNITS/ML 1ML VIAL SQ SCH ×3 (10:02→21:35)
[2020-12-01] MEDS: ASPIRIN 81 MG CHEWABLE TABLETS PO SCH (10:02)
[2020-12-01] MEDS: FLUDROCORTISONE ACETATE 0.1 MG TABLET (FP) PO SCH (10:02)
[2020-12-01] MEDS: ESCITALOPRAM OXALATE 10 MG TABLET PO SCH (11:37)
[2020-12-01] MEDS: ALPRAZolam 0.25 MG TABLET PO SCH ×2 (13:59→21:27)
[2020-12-01] MEDS: ATORVASTATIN CA 20 MG TABLET (FP) PO SCH ×2 (21:27→21:35)
[2020-12-02] MEDS: POTASSIUM CHLORIDE 10 MEQ in SODIUM CHLORIDE 1,000 ML IVPB SCH ×3 (01:34→16:51)
[2020-12-02] MEDS: ALPRAZolam 0.25 MG TABLET PO SCH ×3 (05:32→21:21)
[2020-12-02] MEDS ORDERED: DEXTROSE 50%-WATER 25 GM/50 ML DISP.SYRIN IVPUSH ONE (06:31)
[2020-12-02] MEDS: INSULIN (LEVEMIR) 100 UNITS/ML UNITS SQ SCH ×2 (06:31→21:22)
[2020-12-02] MEDS: INSULIN SLIDING SCALE (NOVOLOG) 1 VIAL SQ SCH ×4 (06:32→21:21)
[2020-12-02] MEDS ORDERED: DEXTROSE 50%-WATER 25 GM/50 ML DISP.SYRIN ONE (06:35)
[2020-12-02] MEDS: FLUDROCORTISONE ACETATE 0.1 MG TABLET (FP) PO SCH (09:57)
[2020-12-02] MEDS: ASPIRIN 81 MG CHEWABLE TABLETS PO SCH (09:57)
[2020-12-02] MEDS: HEPARIN NA (PORCINE) 5,000 UNITS/ML 1ML VIAL SQ SCH ×2 (09:57→21:20)
[2020-12-02] MEDS: ESCITALOPRAM OXALATE 10 MG TABLET PO SCH (09:58)
[2020-12-02] MEDS: ATORVASTATIN CA 20 MG TABLET (FP) PO SCH (21:20)
[2020-12-03] MEDS: POTASSIUM CHLORIDE 10 MEQ in SODIUM CHLORIDE 1,000 ML IVPB SCH ×4 (00:11→17:31)
[2020-12-03] MEDS: ALPRAZolam 0.25 MG TABLET PO SCH ×3 (05:30→21:43)
[2020-12-03] MEDS: INSULIN (LEVEMIR) 100 UNITS/ML UNITS SQ SCH ×2 (06:26→21:42)
[2020-12-03] MEDS: INSULIN SLIDING SCALE (NOVOLOG) 1 VIAL SQ SCH ×4 (06:26→21:42)
[2020-12-03 08:22] LABS: BASO % 1.1 % (0-2.0); EOS % 1.5 % (0-4.5); HEMATOCRIT 32.9 % (32.4-45.2); HEMOGLOBIN 10.9 GM/dL (10.7-15.3); LYMPH % 37.8 % (8-40); MCH 26.7 pg (25.7-33.7); MCHC 33.3 g/dl (32.0-36.0); MEAN CELL VOLUME 80.3 fl (80-96); MEAN PLT VOLUME 7.9 fl (7.5-11.1); MONO % 6.3 % (3.8-10.2); NEUT % 53.3 % (42.8-82.8); PLATELET COUNT 323 10^3/uL (134-434); WHITE BLOOD COUNT 5.1 K/mm3 (4.0-10.0)
[2020-12-03 08:45] LABS: CALCIUM 8.8 mg/dL (8.5-10.1)
[2020-12-03 08:46] LABS: ALBUMIN 3.2 g/dl (3.4-5.0); BLOOD UREA NITROGEN 7.8 mg/dL (7-18)
[2020-12-03 08:49] LABS: CREATININE 0.8 mg/dL (0.55-1.3)
[2020-12-03 08:51] LABS: BILIRUBIN,TOTAL 0.3 mg/dL (0.2-1); TOT PROT 6.6 g/dl (6.4-8.2)
[2020-12-03] MEDS: ASPIRIN 81 MG CHEWABLE TABLETS PO SCH (09:52)
[2020-12-03] MEDS: FLUDROCORTISONE ACETATE 0.1 MG TABLET (FP) PO SCH (09:52)
[2020-12-03] MEDS: ESCITALOPRAM OXALATE 10 MG TABLET PO SCH (09:53)
[2020-12-03] MEDS: HEPARIN NA (PORCINE) 5,000 UNITS/ML 1ML VIAL SQ SCH ×2 (09:53→21:43)
[2020-12-03] MEDS ORDERED: PT OWN MED DRAWER 7, Y5N ONE (09:54)
[2020-12-03] MEDS: ATORVASTATIN CA 20 MG TABLET (FP) PO SCH (21:43)
[2020-12-04] MEDS: ALPRAZolam 0.25 MG TABLET PO SCH ×3 (05:57→21:18)
[2020-12-04] MEDS: INSULIN (LEVEMIR) 100 UNITS/ML UNITS SQ SCH ×2 (06:43→21:22)
[2020-12-04] MEDS: INSULIN SLIDING SCALE (NOVOLOG) 1 VIAL SQ SCH ×4 (06:44→21:19)
[2020-12-04 08:09] LABS: EOS % 1.5 % (0-4.5); HEMOGLOBIN 11.1 GM/dL (10.7-15.3); MCH 27.3 pg (25.7-33.7); MCHC 33.5 g/dl (32.0-36.0); MEAN CELL VOLUME 81.5 fl (80-96); MEAN PLT VOLUME 8.5 fl (7.5-11.1); MONO % 7.4 % (3.8-10.2); NEUT % 51.1 % (42.8-82.8); PLATELET COUNT 346 10^3/uL (134-434); RBC 4.05 M/mm3 (3.60-5.2); RDW 16.1 % (11.6-15.6); WHITE BLOOD COUNT 5.8 K/mm3 (4.0-10.0)
[2020-12-04 08:26] LABS: ALBUMIN 3.3 g/dl (3.4-5.0); BLOOD UREA NITROGEN 12.1 mg/dL (7-18)
[2020-12-04 08:30] LABS: CREATININE 0.9 mg/dL (0.55-1.3)
[2020-12-04 08:31] LABS: BILIRUBIN,TOTAL 0.2 mg/dL (0.2-1); TOT PROT 6.6 g/dl (6.4-8.2)
[2020-12-04] MEDS: FLUDROCORTISONE ACETATE 0.1 MG TABLET (FP) PO SCH (09:43)
[2020-12-04] MEDS: HEPARIN NA (PORCINE) 5,000 UNITS/ML 1ML VIAL SQ SCH ×2 (09:43→21:19)
[2020-12-04] MEDS: ESCITALOPRAM OXALATE 10 MG TABLET PO SCH (09:43)
[2020-12-04] MEDS: ASPIRIN 81 MG CHEWABLE TABLETS PO SCH (09:43)
[2020-12-04] MEDS ORDERED: COSYNTROPIN 0.25 MG VIAL IVPUSH ONE (20:35)
[2020-12-04] MEDS: ATORVASTATIN CA 20 MG TABLET (FP) PO SCH (21:18)
[2020-12-05] MEDS ORDERED: COSYNTROPIN 0.25 MG VIAL IVPUSH ONE (05:30)
[2020-12-05] MEDS: INSULIN SLIDING SCALE (NOVOLOG) 1 VIAL SQ SCH ×4 (06:37→21:27)
[2020-12-05] MEDS: ALPRAZolam 0.25 MG TABLET PO SCH ×4 (06:37→21:23)
[2020-12-05] MEDS: INSULIN (LEVEMIR) 100 UNITS/ML UNITS SQ SCH ×2 (06:39→21:26)
[2020-12-05] MEDS: ESCITALOPRAM OXALATE 10 MG TABLET PO SCH (09:23)
[2020-12-05] MEDS: HEPARIN NA (PORCINE) 5,000 UNITS/ML 1ML VIAL SQ SCH ×2 (09:23→21:26)
[2020-12-05] MEDS: FLUDROCORTISONE ACETATE 0.1 MG TABLET (FP) PO SCH (09:24)
[2020-12-05] MEDS: ASPIRIN 81 MG CHEWABLE TABLETS PO SCH (09:24)
[2020-12-05] MEDS: ATORVASTATIN CA 20 MG TABLET (FP) PO SCH (21:27)
[2020-12-06 06:12] VITALS: TEMP 98.2
[2020-12-06] MEDS: INSULIN SLIDING SCALE (NOVOLOG) 1 VIAL SQ SCH ×2 (06:37→12:26)
[2020-12-06] MEDS: INSULIN (LEVEMIR) 100 UNITS/ML UNITS SQ SCH (06:37)
[2020-12-06] MEDS: ALPRAZolam 0.25 MG TABLET PO SCH (06:40)
[2020-12-06] MEDS: FLUDROCORTISONE ACETATE 0.1 MG TABLET (FP) PO SCH (09:57)
[2020-12-06] MEDS: ASPIRIN 81 MG CHEWABLE TABLETS PO SCH (09:57)
[2020-12-06] MEDS: ESCITALOPRAM OXALATE 10 MG TABLET PO SCH ×2 (09:57→10:02)
[2020-12-06 10:01] VITALS: BP 117/67
[2020-12-06 10:58] VITALS: PULSE 81
[2020-12-06] MEDS ORDERED: INSULIN (NOVOLOG) ASPART 100 UNITS/ML 10ML VIAL ONE (12:15)
== END 2020-12-06 13:59 | DRG 42 ==
LOC: JER 14:00 → JERBED 19:28 → UNDOADMOB 19:28 → JERBED 23:40 → J4W 23:40 → INTOOBSV 11-28 10:28 → JERBED 11-28 10:28 → OBSVTOIN 11-28 10:28
PROVIDERS: ADMIT Internal Medicine; ATTEND Family Medicine
DX: G90.3 Multi-system degeneration of the autonomic nervous system (principal); E10.43 Type 1 diabetes mellitus with diabetic autonomic (poly)neuropathy; K31.84 Gastroparesis; G43.909 Migraine, unspecified, not intractable, without status migrainosus; F41.8 Other specified anxiety disorders; K64.8 Other hemorrhoids; E78.5 Hyperlipidemia, unspecified; K58.9 Irritable bowel syndrome, unspecified; M54.5 Low back pain; D64.9 Anemia, unspecified; J32.9 Chronic sinusitis, unspecified; R07.89 Other chest pain; E10.40 Type 1 diabetes mellitus with diabetic neuropathy, unspecified; G25.81 Restless legs syndrome; R00.0 Tachycardia, unspecified; F43.29 Adjustment disorder with other symptoms; G25.2 Other specified forms of tremor; E66.3 Overweight; Z68.25 Body mass index [BMI] 25.0-25.9, adult
CPT/HCPCS: 36415; 71045-TC-FY; 71275-TC; 78452-TC; 80053; 80061; 81003; 82024; 82533; 82550; 82962; 83036; 83721; 83735; 84439; 84443; 84484; 84703; 85025; 86140; 87086; 93005; 93010; 93017; 93306-TC; 93880-TC; 97116-GP; 97162-GP; 99285-25; A9502; C9803; J0834; J1644; J2785; Q9967; U0003; U0005

== ENCOUNTER 2021-04-06 07:25 | Emergency (ER) | payer OTHER ==
[2021-04-06 07:36] VITALS: BP 119/66; PULSE 109; TEMP 98.1; BMI 25.5
[2021-04-06] MEDS ORDERED: SODIUM CHLORIDE 0.9% 500 ML INFUS.BAG IV ONE (08:37)
[2021-04-06 10:26] LABS: BASO % 0.7 % (0-2.0); EOS % 0.8 % (0-4.5); HEMATOCRIT 35.4 % (32.4-45.2); HEMOGLOBIN 11.8 GM/dL (10.7-15.3); LYMPH % 27.6 % (8-40); MCH 26.5 pg (25.7-33.7); MCHC 33.5 g/dl (32.0-36.0); MEAN CELL VOLUME 79.1 fl (80-96); MEAN PLT VOLUME 8.1 fl (7.5-11.1); MONO % 5.5 % (3.8-10.2); NEUT % 65.4 % (42.8-82.8); PLATELET COUNT 350 10^3/uL (134-434); RBC 4.47 M/mm3 (3.60-5.2); RDW 15.1 % (11.6-15.6); WHITE BLOOD COUNT 7.1 K/mm3 (4.0-10.0)
[2021-04-06 11:33] LABS: ALBUMIN 3.9 g/dl (3.4-5.0); ALK PHOS 135 U/L (45-117); ANION GAP 9 MMOL/L (8-16); BILIRUBIN,TOTAL 0.4 mg/dL (0.2-1); BLOOD UREA NITROGEN 23.1 mg/dL (7-18); CALCIUM 9.6 mg/dL (8.5-10.1); CHLORIDE 100 mmol/L (98-107); CO2 26 mmol/L (21-32); CREATININE 1.1 mg/dL (0.55-1.3); GLUCOSE,RANDOM 454 mg/dL (74-106); MAGNESIUM 2.3 mg/dL (1.8-2.4); PHOSPHOROUS 3.7 mg/dL (2.5-4.9); SGOT/AST 28 U/L (15-37); SGPT/ALT 28 U/L (13-61); SODIUM 135 mmol/L (136-145); TOT PROT 8.1 g/dl (6.4-8.2)
[2021-04-06 12:50] LABS: PH,URINE 5.5 (5.0-8.0); URINE APPEARANCE CLEAR; URINE BILIRUBIN NEGATIVE (NEGATIVE); URINE COLOR YELLOW; URINE GLUCOSE (UA) 3+ (NEGATIVE); URINE KETONE 1+ (NEGATIVE); URINE LEUK ESTERASE NEGATIVE (NEGATIVE); URINE NITRITE NEGATIVE (NEGATIVE); URINE PROTEIN NEGATIVE (NEGATIVE); URINE UROBILINOGEN 0.2 mg/dL (0.2-1.0)
[2021-04-06 14:35] LABS: BLOOD UREA NITROGEN 20.6 mg/dL (7-18); CALCIUM 8.9 mg/dL (8.5-10.1); CREATININE 0.9 mg/dL (0.55-1.3)
[2021-04-06] MEDS ORDERED: INSULIN (NOVOLOG) ASPART 100 UNITS/ML 10ML VIAL SQ SCH (16:30)
== END 2021-04-06 13:35 | disposition left against medical advice (07) ==
LOC: JER 07:25
DX: M62.442 Contracture of muscle, left hand (principal); R73.9 Hyperglycemia, unspecified
CPT/HCPCS: 36415; 73130-TC-LT-FY; 80048; 80053; 81003; 82010; 82550; 82553; 82962; 83735; 84100; 84443; 85025; 99284-25

== ENCOUNTER 2021-05-09 15:57 | Observation (INO) | payer OTHER ==
[2021-05-09 16:31] VITALS: BMI 26.1
[2021-05-09] MEDS ORDERED: SODIUM CHLORIDE 1,000 ML IV ONE (17:46)
[2021-05-09 21:01] LABS: BASO % 0.8 % (0-2.0); HEMATOCRIT 33.7 % (32.4-45.2); HEMOGLOBIN 11.2 GM/dL (10.7-15.3); LYMPH % 39.9 % (8-40); MCHC 33.1 g/dl (32.0-36.0); MEAN CELL VOLUME 78.6 fl (80-96); MEAN PLT VOLUME 8.2 fl (7.5-11.1); MONO % 5.7 % (3.8-10.2); NEUT % 52.6 % (42.8-82.8); PLATELET COUNT 397 10^3/uL (134-434); RBC 4.29 M/mm3 (3.60-5.2); RDW 15.3 % (11.6-15.6); WHITE BLOOD COUNT 6.4 K/mm3 (4.0-10.0)
[2021-05-09 21:03] LABS: VENOUS BASE EXCESS -2.2 mmol/L (-2-2); VENOUS O2 SATURATION 72.4 % (70-80); VENOUS PCO2 40.3 mmHg (38-52); VENOUS PH 7.372 (7.310-7.410)
[2021-05-09 21:24] LABS: CHLORIDE 102 mmol/L (98-107); SODIUM 138 mmol/L (136-145)
[2021-05-09 21:25] LABS: CALCIUM 9.4 mg/dL (8.5-10.1)
[2021-05-09 21:27] LABS: MAGNESIUM 2.1 mg/dL (1.8-2.4)
[2021-05-09 21:27] LABS: ALBUMIN 3.7 g/dl (3.4-5.0); ANION GAP 8 MMOL/L (8-16); BLOOD UREA NITROGEN 22.1 mg/dL (7-18); CO2 28 mmol/L (21-32); GLUCOSE,RANDOM 293 mg/dL (74-106)
[2021-05-09 21:29] LABS: SGOT/AST 31 U/L (15-37); SGPT/ALT 47 U/L (13-61)
[2021-05-09 21:31] LABS: PHOSPHOROUS 3.4 mg/dL (2.5-4.9)
[2021-05-09 21:31] LABS: BILIRUBIN,TOTAL 0.3 mg/dL (0.2-1)
[2021-05-09 21:36] LABS: INR 1.06 (0.83-1.09); PROTHROMBIN TIME (PATIENT) 11.9 SEC (9.7-13.0)
[2021-05-09 21:39] LABS: ACTIVATED PTT 28.3 SECONDS (25.2-36.5)
[2021-05-09 21:59] LABS: HCG,QUALITATIVE URINE Negative
[2021-05-09 22:02] LABS: EPI CELLS >36 /uL (0-25.1); HYALINE CASTS 3 /uL (0-3.1); URINE APPEARANCE CLEAR; URINE BACTERIA 2689 /uL (0-1359); URINE BILIRUBIN NEGATIVE (NEGATIVE); URINE COLOR YELLOW; URINE GLUCOSE (UA) 3+ (NEGATIVE); URINE KETONE NEGATIVE (NEGATIVE); URINE LEUK ESTERASE NEGATIVE (NEGATIVE); URINE NITRITE NEGATIVE (NEGATIVE); URINE PROTEIN NEGATIVE (NEGATIVE); URINE RBC 9 /uL (0-23.9); URINE UROBILINOGEN 0.2 mg/dL (0.2-1.0); URINE WBC 43 /uL (0-25.8)
[2021-05-09 22:37] LABS: TOT PROT 7.8 g/dl (6.4-8.2)
[2021-05-09 23:24] LABS: ALK PHOS 126 U/L (45-117)
[2021-05-09] MEDS ORDERED: ACETAMINOPHEN 325 MG TABLET (FP) PO PRN (23:30)
[2021-05-09] MEDS ORDERED: POLYETHYLENE GLYCOL (HEALTHYLAX) 3350 17 GM PACKET PO PRN (23:30)
[2021-05-09] MEDS ORDERED: SODIUM CHLORIDE 1,000 ML IV SCH (23:45)
[2021-05-10] MEDS: INSULIN SLIDING SCALE (NOVOLOG) 1 VIAL SQ SCH ×3 (00:18→11:03)
[2021-05-10] MEDS ORDERED: CYCLOBENZAPRINE HCL 10 MG TABLET (FP) PO PRN (01:14)
[2021-05-10] MEDS ORDERED: ONDANSETRON 4 MG TABLET PO PRN ×2 (01:14→07:50)
[2021-05-10] MEDS ORDERED: ALPRAZolam 0.25 MG TABLET PO PRN (01:14)
[2021-05-10] MEDS ORDERED: MELATONIN 1 MG TABLET PO ONE (01:15)
[2021-05-10] MEDS ORDERED: MELATONIN 5 MG TABLETS ONE (03:32)
[2021-05-10] MEDS ORDERED: INSULIN SLIDING SCALE (NOVOLOG) 1 VIAL SQ SCH (07:00)
[2021-05-10] MEDS ORDERED: ENOXAPARIN NA (PORCINE) 40 MG/0.4 ML DISP.SYRIN SQ ONE (09:22)
[2021-05-10 09:35] LABS: BASO % 0.6 % (0-2.0); EOS % 1.3 % (0-4.5); HEMATOCRIT 32.2 % (32.4-45.2); HEMOGLOBIN 10.5 GM/dL (10.7-15.3); LYMPH % 35.9 % (8-40); MCH 25.8 pg (25.7-33.7); MCHC 32.8 g/dl (32.0-36.0); MEAN CELL VOLUME 78.6 fl (80-96); MEAN PLT VOLUME 7.7 fl (7.5-11.1); MONO % 5.2 % (3.8-10.2); PLATELET COUNT 337 10^3/uL (134-434); RBC 4.09 M/mm3 (3.60-5.2); RDW 15.5 % (11.6-15.6); WHITE BLOOD COUNT 5.1 K/mm3 (4.0-10.0)
[2021-05-10 09:55] LABS: CALCIUM 8.6 mg/dL (8.5-10.1)
[2021-05-10 09:56] LABS: BLOOD UREA NITROGEN 15.2 mg/dL (7-18)
[2021-05-10 09:59] LABS: CREATININE 0.7 mg/dL (0.55-1.3)
[2021-05-10] MEDS ORDERED: ENOXAPARIN NA (PORCINE) 40 MG/0.4 ML DISP.SYRIN SQ SCH (10:00)
[2021-05-10 11:00] VITALS: PULSE 84
[2021-05-10 12:31] VITALS: BP 108/54; TEMP 97.6
[2021-05-10] MEDS ORDERED: DOCUSATE SODIUM 100 MG CAPSULE (FP) PO SCH (22:00)
== END 2021-05-10 12:32 | disposition home or self-care (01) ==
LOC: JER 15:57 → INTOOBSV 22:44 → JERBED 22:44
PROVIDERS: ADMIT Hospitalist; ATTEND Family Medicine
PROC: 3E0337Z Introduction of Electrolytic and Water Balance Substance into Peripheral Vein, Percutaneous Approach (ICD-10-PCS; principal; 2021-05-09)
DX: I95.1 Orthostatic hypotension (principal); E10.40 Type 1 diabetes mellitus with diabetic neuropathy, unspecified; E10.43 Type 1 diabetes mellitus with diabetic autonomic (poly)neuropathy; Z79.4 Long term (current) use of insulin; K31.84 Gastroparesis; F41.8 Other specified anxiety disorders; K62.5 Hemorrhage of anus and rectum; K63.5 Polyp of colon; M54.30 Sciatica, unspecified side
CPT/HCPCS: 36415; 71045-TC-FY; 80048; 80053; 81003; 82010; 82550; 82803; 82962; 83735; 84100; 84443; 84484; 84703; 85025; 85610; 85730; 93005; 93010; 96360; 99285-25; C9803; G0378; U0003; U0005

== ENCOUNTER 2021-05-26 12:45 | Observation (INO) | payer OTHER ==
[2021-05-26 12:58] VITALS: BMI 25.5
[2021-05-26] MEDS ORDERED: SODIUM CHLORIDE 1,000 ML IV STA (15:43)
[2021-05-26 17:23] LABS: BASO % 0.7 % (0-2.0); EOS % 1.4 % (0-4.5); HEMATOCRIT 34.1 % (32.4-45.2); HEMOGLOBIN 11.1 GM/dL (10.7-15.3); LYMPH % 36.9 % (8-40); MCH 25.9 pg (25.7-33.7); MCHC 32.7 g/dl (32.0-36.0); MEAN CELL VOLUME 79.2 fl (80-96); MEAN PLT VOLUME 7.8 fl (7.5-11.1); MONO % 5.1 % (3.8-10.2); NEUT % 55.9 % (42.8-82.8); PLATELET COUNT 369 10^3/uL (134-434); RDW 15.7 % (11.6-15.6); WHITE BLOOD COUNT 5.3 K/mm3 (4.0-10.0)
[2021-05-26 17:30] LABS: INR 1.12 (0.83-1.09); PROTHROMBIN TIME (PATIENT) 12.9 SEC (9.7-13.0)
[2021-05-26 17:44] LABS: CALCIUM 9.6 mg/dL (8.5-10.1)
[2021-05-26 17:45] LABS: BLOOD UREA NITROGEN 22.3 mg/dL (7-18)
[2021-05-26 17:48] LABS: CREATININE 0.9 mg/dL (0.55-1.3)
[2021-05-26 17:49] LABS: BILIRUBIN,TOTAL 0.2 mg/dL (0.2-1); TOT PROT 7.8 g/dl (6.4-8.2)
[2021-05-27 06:29] LABS: HCG,QUALITATIVE URINE Negative
[2021-05-27 06:30] LABS: EPI CELLS 14 /uL (0-25.1); HYALINE CASTS 1 /uL (0-3.1); URINE APPEARANCE CLEAR; URINE BACTERIA 655 /uL (0-1359); URINE BILIRUBIN NEGATIVE (NEGATIVE); URINE COLOR YELLOW; URINE GLUCOSE (UA) NEGATIVE (NEGATIVE); URINE KETONE NEGATIVE (NEGATIVE); URINE LEUK ESTERASE TRACE (NEGATIVE); URINE NITRITE NEGATIVE (NEGATIVE); URINE PROTEIN NEGATIVE (NEGATIVE); URINE RBC 31 /uL (0-23.9); URINE UROBILINOGEN 0.2 mg/dL (0.2-1.0); URINE WBC 49 /uL (0-25.8)
[2021-05-27] MEDS: DEXTROSE 5%-0.45% SALINE 1,000 ML IV SCH (07:55)
[2021-05-27 08:20] LABS: BASO % 1.2 % (0-2.0); CALCIUM 8.6 mg/dL (8.5-10.1); EOS % 1.4 % (0-4.5); HEMATOCRIT 33.6 % (32.4-45.2); HEMOGLOBIN 10.7 GM/dL (10.7-15.3); MCH 25.5 pg (25.7-33.7); MCHC 31.8 g/dl (32.0-36.0); MEAN CELL VOLUME 80.2 fl (80-96); MONO % 6.7 % (3.8-10.2); NEUT % 46.7 % (42.8-82.8); PLATELET COUNT 358 10^3/uL (134-434); RBC 4.19 M/mm3 (3.60-5.2); RDW 15.6 % (11.6-15.6)
[2021-05-27 08:21] LABS: ALBUMIN 3.7 g/dl (3.4-5.0); BLOOD UREA NITROGEN 18.4 mg/dL (7-18); MAGNESIUM 2.4 mg/dL (1.8-2.4)
[2021-05-27 08:24] LABS: CREATININE 0.7 mg/dL (0.55-1.3)
[2021-05-27 08:25] LABS: BILIRUBIN,TOTAL 0.2 mg/dL (0.2-1); TOT PROT 7.3 g/dl (6.4-8.2)
[2021-05-27] MEDS: FLUDROCORTISONE ACETATE 0.1 MG TABLET (FP) PO SCH (14:12)
[2021-05-27] MEDS ORDERED: ONDANSETRON 4 MG/2 ML VIAL IVPUSH ONE (21:09)
[2021-05-27] MEDS ORDERED: ONDANSETRON 4 MG/2 ML VIAL ONE (21:43)
[2021-05-28] MEDS ORDERED: INSULIN (NOVOLOG) ASPART 100 UNITS/ML 10ML VIAL SQ ONE (05:28)
[2021-05-28] MEDS: FLUDROCORTISONE ACETATE 0.1 MG TABLET (FP) PO SCH (09:22)
[2021-05-28] MEDS: INSULIN SLIDING SCALE (NOVOLOG) 1 VIAL SQ SCH ×3 (11:08→21:35)
[2021-05-28] MEDS ORDERED: INSULIN (NOVOLOG) ASPART 100 UNITS/ML 10ML VIAL ONE (11:22)
[2021-05-28] MEDS: DEXTROSE 5%-0.45% SALINE 1,000 ML IV SCH (14:08)
[2021-05-28] MEDS: ONDANSETRON 4 MG/2 ML VIAL IVPUSH PRN (17:00)
[2021-05-28] MEDS ORDERED: INSULIN (LEVEMIR) 100 UNITS/ML UNITS SQ SCH (22:00)
[2021-05-29] MEDS ORDERED: GLUCAGON 1 MG KIT IM ONE (04:15)
[2021-05-29] MEDS ORDERED: DEXTROSE 50%-WATER - 25 GM/50 ML VIAL IVPUSH ONE ×2 (04:25→10:45)
[2021-05-29] MEDS ORDERED: DEXTROSE 50%-WATER - 25 GM/50 ML VIAL ONE (04:27)
[2021-05-29] MEDS ORDERED: GLUCAGON 1 MG KIT ONE (04:38)
[2021-05-29] MEDS: INSULIN SLIDING SCALE (NOVOLOG) 1 VIAL SQ SCH ×4 (06:34→22:00)
[2021-05-29] MEDS: FLUDROCORTISONE ACETATE 0.1 MG TABLET (FP) PO SCH (09:36)
[2021-05-29] MEDS: ONDANSETRON 4 MG/2 ML VIAL IVPUSH PRN (10:10)
[2021-05-29] MEDS ORDERED: DEXTROSE 50%-WATER 25 GM/50 ML DISP.SYRIN ONE (10:12)
[2021-05-29] MEDS ORDERED: DEXTROSE 5%-WATER - 1,000 ML IV SCH (10:30)
[2021-05-29] MEDS ORDERED: INSULIN SLIDING SCALE (NOVOLOG) 1 VIAL SQ SCH (15:11)
[2021-05-29] MEDS ORDERED: ALPRAZolam 0.25 MG TABLET PO PRN (15:42)
[2021-05-29 18:40] LABS: EPI CELLS 17 /uL (0-25.1); HYALINE CASTS 0 /uL (0-3.1); PH,URINE 5.5 (5.0-8.0); URINE APPEARANCE CLEAR; URINE BACTERIA 1547 /uL (0-1359); URINE BILIRUBIN NEGATIVE (NEGATIVE); URINE COLOR YELLOW; URINE GLUCOSE (UA) TRACE (NEGATIVE); URINE KETONE NEGATIVE (NEGATIVE); URINE LEUK ESTERASE NEGATIVE (NEGATIVE); URINE NITRITE NEGATIVE (NEGATIVE); URINE PROTEIN NEGATIVE (NEGATIVE); URINE RBC 7 /uL (0-23.9); URINE UROBILINOGEN 0.2 mg/dL (0.2-1.0); URINE WBC 22 /uL (0-25.8)
[2021-05-29 21:03] LABS: YEAST MANY (NEGATIVE)
[2021-05-29] MEDS ORDERED: INSULIN (LEVEMIR) 100 UNITS/ML UNITS SQ SCH (22:00)
[2021-05-30] MEDS ORDERED: INSULIN (LEVEMIR) 100 UNITS/ML UNITS SQ SCH (07:00)
[2021-05-30] MEDS: INSULIN SLIDING SCALE (NOVOLOG) 1 VIAL SQ SCH ×2 (07:04→11:08)
[2021-05-30] MEDS: FLUDROCORTISONE ACETATE 0.1 MG TABLET (FP) PO SCH (10:12)
[2021-05-30 10:29] VITALS: BP 107/67; PULSE 95; TEMP 98.1
== END 2021-05-30 14:04 | disposition home or self-care (01) ==
LOC: JER 12:45 → JERBED 22:58 → J4W 05-28 00:27 → J5S 05-29 00:31
PROVIDERS: ADMIT Internal Medicine; ATTEND Family Medicine
PROC: 3E033GC Introduction of Other Therapeutic Substance into Peripheral Vein, Percutaneous Approach (ICD-10-PCS; principal; 2021-05-26)
PROC: 3E013VG Introduction of Insulin into Subcutaneous Tissue, Percutaneous Approach (ICD-10-PCS; 2021-05-26)
PROC: 3E0337Z Introduction of Electrolytic and Water Balance Substance into Peripheral Vein, Percutaneous Approach (ICD-10-PCS; 2021-05-26)
DX: I95.1 Orthostatic hypotension (principal); K58.9 Irritable bowel syndrome, unspecified; F32.9 Major depressive disorder, single episode, unspecified; G43.909 Migraine, unspecified, not intractable, without status migrainosus; E10.620 Type 1 diabetes mellitus with diabetic dermatitis; E10.42 Type 1 diabetes mellitus with diabetic polyneuropathy; E10.610 Type 1 diabetes mellitus with diabetic neuropathic arthropathy; E10.43 Type 1 diabetes mellitus with diabetic autonomic (poly)neuropathy; K31.84 Gastroparesis; E78.5 Hyperlipidemia, unspecified; F41.8 Other specified anxiety disorders; R05.9 Cough, unspecified; K85.90 Acute pancreatitis without necrosis or infection, unspecified; M25.50 Pain in unspecified joint; K35.80 Unspecified acute appendicitis; M54.9 Dorsalgia, unspecified; R10.84 Generalized abdominal pain; K59.00 Constipation, unspecified; M19.90 Unspecified osteoarthritis, unspecified site; G25.2 Other specified forms of tremor; H66.93 Otitis media, unspecified, bilateral; S80.00XA Contusion of unspecified knee, initial encounter; Y33.XXXA Other specified events, undetermined intent, initial encounter; Y93.89 Activity, other specified; Y92.89 Other specified places as the place of occurrence of the external cause; N70.11 Chronic salpingitis; Z20.822 Contact with and (suspected) exposure to COVID-19; N83.209 Unspecified ovarian cyst, unspecified side; Z53.21 Procedure and treatment not carried out due to patient leaving prior to being seen by health care provider; R20.2 Paresthesia of skin; G57.00 Lesion of sciatic nerve, unspecified lower limb; F43.29 Adjustment disorder with other symptoms; K62.5 Hemorrhage of anus and rectum; R00.0 Tachycardia, unspecified; R06.02 Shortness of breath; R19.8 Other specified symptoms and signs involving the digestive system and abdomen; N30.00 Acute cystitis without hematuria; N93.9 Abnormal uterine and vaginal bleeding, unspecified
CPT/HCPCS: 36415; 70450-TC; 71046-TC-FY; 80053; 80061; 81003; 82533; 82550; 82962; 83036; 83735; 84443; 84484; 84703; 85025; 85610; 87086; 87186; 93005; 93010; 96361; 96365; 96372; 96375; 99285-25; C9803; G0378; U0003; U0005

== ENCOUNTER 2021-09-11 01:58 | Observation (INO) | payer OTHER ==
[2021-09-11 02:14] VITALS: BMI 27.4
[2021-09-11] MEDS ORDERED: ACETAMINOPHEN 1000 MG/100 ML BAG IVPB ONE (03:17)
[2021-09-11] MEDS ORDERED: ASPIRIN 81 MG CHEWABLE TABLETS PO ONE ×2 (03:17→03:34)
[2021-09-11] MEDS ORDERED: KETOROLAC TROMETHAMINE 15 MG/ML VIAL IM ONE (03:18)
[2021-09-11] MEDS ORDERED: ASPIRIN 81 MG CHEWABLE TABLETS ONE (04:05)
[2021-09-11] MEDS ORDERED: ACETAMINOPHEN INJECTION 100 ML IVPB ONE ×2 (05:10→13:22)
[2021-09-11 05:26] LABS: INR 1.15 (0.83-1.09); PROTHROMBIN TIME (PATIENT) 13.3 SEC (9.7-13.0)
[2021-09-11 05:28] LABS: ACTIVATED PTT 33.9 SECONDS (25.2-36.5)
[2021-09-11 05:37] LABS: CHLORIDE 106 mmol/L (98-107); SODIUM 137 mmol/L (136-145)
[2021-09-11 05:40] LABS: ALBUMIN 3.9 g/dl (3.4-5.0); ANION GAP 2 MMOL/L (8-16); BASO % 0.6 % (0-2.0); BLOOD UREA NITROGEN 13.8 mg/dL (7-18); CO2 30 mmol/L (21-32); EOS % 0.9 % (0-4.5); GLUCOSE,RANDOM 98 mg/dL (74-106); HEMATOCRIT 33.9 % (32.4-45.2); LYMPH % 30.9 % (8-40); MCH 25.9 pg (25.7-33.7); MCHC 32.5 g/dl (32.0-36.0); MEAN CELL VOLUME 79.9 fl (80-96); MEAN PLT VOLUME 7.7 fl (7.5-11.1); MONO % 6.4 % (3.8-10.2); NEUT % 61.2 % (42.8-82.8); PLATELET COUNT 387 10^3/uL (134-434); RBC 4.24 M/mm3 (3.60-5.2); RDW 15.9 % (11.6-15.6)
[2021-09-11 05:43] LABS: CREATININE 0.8 mg/dL (0.55-1.3); SGOT/AST 20 U/L (15-37); SGPT/ALT 30 U/L (13-61)
[2021-09-11 05:44] LABS: BILIRUBIN,TOTAL 0.4 mg/dL (0.2-1); TOT PROT 7.4 g/dl (6.4-8.2)
[2021-09-11 05:46] LABS: ALK PHOS 94 U/L (45-117)
[2021-09-11] MEDS ORDERED: morphine SULFATE 4 MG/ML VIAL IVPUSH ONE (06:26)
[2021-09-11] MEDS ORDERED: ACETAMINOPHEN 325 MG TABLET (FP) PO PRN (06:43)
[2021-09-11] MEDS ORDERED: POLYETHYLENE GLYCOL (HEALTHYLAX) 3350 17 GM PACKET PO PRN (06:43)
[2021-09-11] MEDS ORDERED: INSULIN SLIDING SCALE (NOVOLOG) 1 VIAL SQ SCH (07:00)
[2021-09-11] MEDS ORDERED: ENOXAPARIN NA (PORCINE) 40 MG/0.4 ML DISP.SYRIN SQ ONE (09:33)
[2021-09-11] MEDS ORDERED: FLUDROCORTISONE ACETATE 0.1 MG TABLET (FP) PO SCH (10:00)
[2021-09-11] MEDS ORDERED: ENOXAPARIN NA (PORCINE) 40 MG/0.4 ML DISP.SYRIN SQ SCH (10:00)
[2021-09-11 11:32] VITALS: PULSE 85
[2021-09-11] MEDS: INSULIN SLIDING SCALE (NOVOLOG) 1 VIAL SQ SCH ×2 (11:48→17:25)
[2021-09-11] MEDS ORDERED: ACETAMINOPHEN 1000 MG/100 ML BAG IVPB PRN (12:00)
[2021-09-11 17:31] VITALS: BP 107/63; TEMP 98.4
== END 2021-09-11 07:35 | disposition home or self-care (01) ==
LOC: JER 01:58 → JERBED 06:23
PROVIDERS: ADMIT Hospitalist; ATTEND Family Medicine
PROC: 3E033NZ Introduction of Analgesics, Hypnotics, Sedatives into Peripheral Vein, Percutaneous Approach (ICD-10-PCS; principal; 2021-09-11)
DX: R07.9 Chest pain, unspecified (principal); R53.83 Other fatigue; I95.1 Orthostatic hypotension; K58.9 Irritable bowel syndrome, unspecified; F41.8 Other specified anxiety disorders; G90.9 Disorder of the autonomic nervous system, unspecified; G47.00 Insomnia, unspecified; R77.8 Other specified abnormalities of plasma proteins; E11.43 Type 2 diabetes mellitus with diabetic autonomic (poly)neuropathy; K31.84 Gastroparesis; G43.909 Migraine, unspecified, not intractable, without status migrainosus; M54.30 Sciatica, unspecified side; E78.5 Hyperlipidemia, unspecified; K85.90 Acute pancreatitis without necrosis or infection, unspecified; G89.29 Other chronic pain; M51.36 Other intervertebral disc degeneration, lumbar region; F41.9 Anxiety disorder, unspecified; R25.1 Tremor, unspecified
CPT/HCPCS: 36415; 71046-TC-FY; 71275-TC; 80053; 84484; 85025; 85379; 85610; 85730; 93005; 93010; 96374; 96375; 96376; 99285-25; C9803-CS; G0378; Q9967; U0003; U0005

== ENCOUNTER 2022-01-13 13:31 | Inpatient (IN) | payer MEDICARE, OTHER ==
[2022-01-13] MEDS ORDERED: morphine CARPU-JECT 2 MG/1 ML DISP.SYRIN IVPUSH ONE (13:54)
[2022-01-13] MEDS ORDERED: METOCLOPRAMIDE HCL INJECTION 10 MG/2 ML VIAL IVPUSH ONE ×2 (13:55→21:22)
[2022-01-13] MEDS ORDERED: ACETAMINOPHEN 1000 MG/100 ML BAG IVPB ONE (13:55)
[2022-01-13] MEDS ORDERED: SODIUM CHLORIDE 0.9% 500 ML INFUS.BAG IV ONE (13:55)
[2022-01-13] MEDS ORDERED: KETOROLAC TROMETHAMINE 30 MG/1 ML VIAL IVPUSH ONE (13:55)
[2022-01-13] MEDS ORDERED: METOCLOPRAMIDE HCL INJECTION 10 MG/2 ML VIAL ONE (14:01)
[2022-01-13] MEDS ORDERED: ACETAMINOPHEN INJECTION 100 ML IVPB ONE (14:02)
[2022-01-13] MEDS ORDERED: KETOROLAC TROMETHAMINE 30 MG/1 ML VIAL ONE (14:02)
[2022-01-13 14:55] LABS: BASO % 0.5 % (0-2.0); EOS % 0.6 % (0-4.5); HEMATOCRIT 35.1 % (32.4-45.2); HEMOGLOBIN 11.8 GM/dL (10.7-15.3); LYMPH % 26.9 % (8-40); MCH 27.1 pg (25.7-33.7); MCHC 33.5 g/dl (32.0-36.0); MEAN CELL VOLUME 80.8 fl (80-96); MEAN PLT VOLUME 7.6 fl (7.5-11.1); MONO % 6.7 % (3.8-10.2); NEUT % 65.3 % (42.8-82.8); PLATELET COUNT 426 10^3/uL (134-434); RBC 4.35 M/mm3 (3.60-5.2); WHITE BLOOD COUNT 7.5 K/mm3 (4.0-10.0)
[2022-01-13 14:59] LABS: INR 0.98 (0.83-1.09); PROTHROMBIN TIME (PATIENT) 11.3 SEC (9.7-13.0)
[2022-01-13 15:04] LABS: CALCIUM 9.6 mg/dL (8.5-10.1)
[2022-01-13 15:05] LABS: BLOOD UREA NITROGEN 25.1 mg/dL (7-18)
[2022-01-13 15:09] LABS: BILIRUBIN,TOTAL 0.4 mg/dL (0.2-1); TOT PROT 8.3 g/dl (6.4-8.2)
[2022-01-13 15:48] LABS: EPI CELLS 34 /uL (0-25.1); HYALINE CASTS 1 /uL (0-3.1); PH,URINE 5.5 (5.0-8.0); URINE APPEARANCE CLEAR; URINE BACTERIA 152 /uL (0-1359); URINE BILIRUBIN NEGATIVE (NEGATIVE); URINE COLOR YELLOW; URINE GLUCOSE (UA) NEGATIVE (NEGATIVE); URINE KETONE 2+ (NEGATIVE); URINE LEUK ESTERASE 1+ (NEGATIVE); URINE NITRITE NEGATIVE (NEGATIVE); URINE PROTEIN TRACE (NEGATIVE); URINE UROBILINOGEN 0.2 mg/dL (0.2-1.0); URINE WBC 47 /uL (0-25.8)
[2022-01-13] MEDS ORDERED: morphine CARPU-JECT 4 MG/1 ML DISP.SYRIN IVPUSH ONE (16:28)
[2022-01-13] MEDS ORDERED: morphine SULFATE 4 MG/ML VIAL ONE (16:32)
[2022-01-13 16:51] LABS: URINE RBC 53.3 /uL (0-23.9)
[2022-01-13] MEDS ORDERED: DEXTROSE 5%-NORMAL SALINE 1,000 ML IV SCH (20:00)
[2022-01-13 20:40] LABS: MAGNESIUM 2.1 mg/dL (1.8-2.4)
[2022-01-13] MEDS ORDERED: MINERAL OIL ENEMA 133 ML ENEMA RC ONE (21:23)
[2022-01-13] MEDS: INSULIN SLIDING SCALE (NOVOLOG) 1 VIAL SQ SCH (22:14)
[2022-01-13] MEDS ORDERED: MELATONIN 1 MG TABLET PO PRN (22:25)
[2022-01-13] MEDS ORDERED: KETOROLAC TROMETHAMINE 30 MG/1 ML VIAL IVPUSH PRN (22:33)
[2022-01-13] MEDS: DEXTROSE 5%-NORMAL SALINE 1,000 ML IV SCH (23:17)
[2022-01-14] MEDS ORDERED: DEXTROSE 5%-NORMAL SALINE 250 ML IV ONE (00:15)
[2022-01-14] MEDS ORDERED: SODIUM PHOSPHATE/NA BIPHOS 133 ML ENEMA RC ONE (00:51)
[2022-01-14] MEDS ORDERED: MIDODRINE HCL 5 MG TABLET PO PRN (02:24)
[2022-01-14] MEDS: METOCLOPRAMIDE HCL 10 MG TABLET (FP) PO SCH ×3 (05:33→17:09)
[2022-01-14] MEDS: INSULIN SLIDING SCALE (NOVOLOG) 1 VIAL SQ SCH ×4 (06:25→22:14)
[2022-01-14 09:37] LABS: BASO % 0.6 % (0-2.0); EOS % 1.1 % (0-4.5); HEMATOCRIT 34.2 % (32.4-45.2); HEMOGLOBIN 10.8 GM/dL (10.7-15.3); LYMPH % 27.9 % (8-40); MCHC 31.7 g/dl (32.0-36.0); MEAN PLT VOLUME 8.2 fl (7.5-11.1); MONO % 8.6 % (3.8-10.2); NEUT % 61.8 % (42.8-82.8); PLATELET COUNT 395 10^3/uL (134-434); RBC 4.17 M/mm3 (3.60-5.2); RDW 16.5 % (11.6-15.6); WHITE BLOOD COUNT 6.2 K/mm3 (4.0-10.0)
[2022-01-14] MEDS: DEXTROSE 5%-NORMAL SALINE 1,000 ML IV SCH ×2 (10:02→22:58)
[2022-01-14 10:38] LABS: CALCIUM 8.8 mg/dL (8.5-10.1)
[2022-01-14 10:39] LABS: ALBUMIN 3.6 g/dl (3.4-5.0); BLOOD UREA NITROGEN 19.6 mg/dL (7-18)
[2022-01-14 10:42] LABS: CREATININE 0.8 mg/dL (0.55-1.3)
[2022-01-14 10:43] LABS: TOT PROT 7.2 g/dl (6.4-8.2)
[2022-01-14 10:44] LABS: BILIRUBIN,TOTAL 0.4 mg/dL (0.2-1)
[2022-01-14 11:41] VITALS: BMI 24.7
[2022-01-14] MEDS: CEFTRIAXONE 1 GM in DEXTROSE 5%-WATER - 50 ML IVPB SCH (11:55)
[2022-01-14 13:18] LABS: MAGNESIUM 2.1 mg/dL (1.8-2.4)
[2022-01-15] MEDS: METOCLOPRAMIDE HCL 10 MG TABLET (FP) PO SCH ×4 (00:43→19:16)
[2022-01-15] MEDS: INSULIN SLIDING SCALE (NOVOLOG) 1 VIAL SQ SCH ×4 (06:06→22:12)
[2022-01-15 08:08] LABS: BLOOD UREA NITROGEN 6.5 mg/dL (7-18); CALCIUM 8.1 mg/dL (8.5-10.1)
[2022-01-15 08:11] LABS: CREATININE 0.7 mg/dL (0.55-1.3)
[2022-01-15 08:13] LABS: BILIRUBIN,TOTAL 0.4 mg/dL (0.2-1); TOT PROT 6.4 g/dl (6.4-8.2)
[2022-01-15] MEDS: CEFTRIAXONE 1 GM in DEXTROSE 5%-WATER - 50 ML IVPB SCH (11:03)
[2022-01-15] MEDS: DEXTROSE 5%-NORMAL SALINE 1,000 ML IV SCH ×2 (12:56→21:39)
[2022-01-15 13:24] LABS: BASO % 0.5 % (0-2.0); EOS % 0.8 % (0-4.5); HEMATOCRIT 34.6 % (32.4-45.2); HEMOGLOBIN 11.4 GM/dL (10.7-15.3); LYMPH % 24.3 % (8-40); MCH 27.1 pg (25.7-33.7); MCHC 33.1 g/dl (32.0-36.0); MEAN CELL VOLUME 81.7 fl (80-96); MEAN PLT VOLUME 8.2 fl (7.5-11.1); NEUT % 67.4 % (42.8-82.8); PLATELET COUNT 402 10^3/uL (134-434); RBC 4.23 M/mm3 (3.60-5.2); RDW 16.2 % (11.6-15.6); WHITE BLOOD COUNT 6.1 K/mm3 (4.0-10.0)
[2022-01-15] MEDS: POLYETHYLENE GLYCOL (HEALTHYLAX) 3350 17 GM PACKET PO SCH ×2 (13:39→22:11)
[2022-01-15] MEDS: metFORMIN HCL 500 MG TABLET (FP) PO SCH (17:07)
[2022-01-16] MEDS: METOCLOPRAMIDE HCL 10 MG TABLET (FP) PO SCH ×5 (01:04→23:02)
[2022-01-16] MEDS: POLYETHYLENE GLYCOL (HEALTHYLAX) 3350 17 GM PACKET PO SCH ×2 (06:41→22:18)
[2022-01-16] MEDS: metFORMIN HCL 500 MG TABLET (FP) PO SCH (06:42)
[2022-01-16] MEDS ORDERED: INSULIN (NOVOLOG) ASPART 100 UNITS/ML 10ML VIAL ONE ×2 (06:47→18:04)
[2022-01-16] MEDS: INSULIN SLIDING SCALE (NOVOLOG) 1 VIAL SQ SCH ×4 (07:54→22:09)
[2022-01-16] MEDS: DEXTROSE 5%-NORMAL SALINE 1,000 ML IV SCH (08:00)
[2022-01-16 09:14] LABS: ALBUMIN 3.2 g/dl (3.4-5.0)
[2022-01-16 09:17] LABS: BILIRUBIN,DIRECT 0.2 mg/dL (0.0-0.2)
[2022-01-16 09:19] LABS: BILIRUBIN,TOTAL 0.5 mg/dL (0.2-1); TOT PROT 6.5 g/dl (6.4-8.2)
[2022-01-16] MEDS: CEFTRIAXONE 1 GM in DEXTROSE 5%-WATER - 50 ML IVPB SCH (09:45)
[2022-01-16] MEDS ORDERED: INSULIN (NOVOLOG) ASPART 100 UNITS/ML 10ML VIAL SQ ONE (15:15)
[2022-01-16] MEDS ORDERED: INSULIN SLIDING SCALE (NOVOLOG) 1 VIAL SQ ONE (15:15)
[2022-01-16] MEDS ORDERED: INSULIN SLIDING SCALE (NOVOLOG) 1 VIAL SQ SCH (16:30)
[2022-01-16] MEDS ORDERED: INSULIN (LEVEMIR) 100 UNITS/ML UNITS SQ SCH (22:00)
[2022-01-17] MEDS: INSULIN SLIDING SCALE (NOVOLOG) 1 VIAL SQ SCH ×6 (06:00→17:06)
[2022-01-17] MEDS: METOCLOPRAMIDE HCL 10 MG TABLET (FP) PO SCH ×2 (06:01→11:00)
[2022-01-17] MEDS: CEFTRIAXONE 1 GM in DEXTROSE 5%-WATER - 50 ML IVPB SCH (09:47)
[2022-01-17 10:32] LABS: ALBUMIN 3.4 g/dl (3.4-5.0)
[2022-01-17 10:34] LABS: BILIRUBIN,DIRECT 0.1 mg/dL (0.0-0.2)
[2022-01-17 10:37] LABS: BILIRUBIN,TOTAL 0.2 mg/dL (0.2-1); TOT PROT 6.8 g/dl (6.4-8.2)
[2022-01-17] MEDS: POLYETHYLENE GLYCOL (HEALTHYLAX) 3350 17 GM PACKET PO SCH ×2 (10:40→22:13)
[2022-01-17] MEDS: ALPRAZolam 1 MG TABLET PO PRN (10:40)
[2022-01-17] MEDS ORDERED: SODIUM CHLORIDE 0.45% 1,000 ML IV SCH (14:45)
[2022-01-17] MEDS: INSULIN (LEVEMIR) 100 UNITS/ML UNITS SQ SCH (22:13)
[2022-01-18] MEDS: INSULIN SLIDING SCALE (NOVOLOG) 1 VIAL SQ SCH ×6 (01:23→21:39)
[2022-01-18] MEDS ORDERED: SODIUM PHOSPHATE/NA BIPHOS 133 ML ENEMA RC ONE ×2 (06:00→10:40)
[2022-01-18] MEDS ORDERED: ONDANSETRON *ODT* 4 MG TABLET SL PRN (08:56)
[2022-01-18] MEDS ORDERED: ONDANSETRON 4 MG/2 ML VIAL IVPUSH PRN (08:56)
[2022-01-18] MEDS: POLYETHYLENE GLYCOL (HEALTHYLAX) 3350 17 GM PACKET PO SCH ×2 (09:03→21:33)
[2022-01-18] MEDS: CEFTRIAXONE 1 GM in DEXTROSE 5%-WATER - 50 ML IVPB SCH (09:06)
[2022-01-18 09:51] LABS: HEMATOCRIT 33.9 % (32.4-45.2); HEMOGLOBIN 11.4 GM/dL (10.7-15.3); MCH 27.4 pg (25.7-33.7); MCHC 33.8 g/dl (32.0-36.0); MEAN PLT VOLUME 7.6 fl (7.5-11.1); PLATELET COUNT 414 10^3/uL (134-434); RBC 4.18 M/mm3 (3.60-5.2); RDW 16.1 % (11.6-15.6); WHITE BLOOD COUNT 6.8 K/mm3 (4.0-10.0)
[2022-01-18 10:11] LABS: ALBUMIN 3.7 g/dl (3.4-5.0); BLOOD UREA NITROGEN 12.8 mg/dL (7-18)
[2022-01-18 10:14] LABS: BILIRUBIN,DIRECT 0.1 mg/dL (0.0-0.2); CREATININE 0.9 mg/dL (0.55-1.3)
[2022-01-18 10:16] LABS: BILIRUBIN,TOTAL 0.4 mg/dL (0.2-1); TOT PROT 7.2 g/dl (6.4-8.2)
[2022-01-18 10:18] LABS: CALCIUM 9.5 mg/dL (8.5-10.1)
[2022-01-18] MEDS: ALPRAZolam 1 MG TABLET PO PRN ×2 (10:26→21:34)
[2022-01-18 15:36] VITALS: RESP 18
[2022-01-18] MEDS: INSULIN (LEVEMIR) 100 UNITS/ML UNITS SQ SCH (21:34)
[2022-01-19] MEDS: INSULIN SLIDING SCALE (NOVOLOG) 1 VIAL SQ SCH ×2 (06:03→11:33)
[2022-01-19] MEDS ORDERED: INSULIN (LEVEMIR) 100 UNITS/ML UNITS SQ SCH (07:00)
[2022-01-19] MEDS ORDERED: BISACODYL 5 MG TABLET.DR (FP) PO ONE (10:28)
[2022-01-19] MEDS ORDERED: METOCLOPRAMIDE HCL 10 MG TABLET (FP) PO SCH (11:00)
[2022-01-19] MEDS: CEFTRIAXONE 1 GM in DEXTROSE 5%-WATER - 50 ML IVPB SCH (11:18)
[2022-01-19] MEDS: POLYETHYLENE GLYCOL (HEALTHYLAX) 3350 17 GM PACKET PO SCH (11:30)
[2022-01-19 13:43] VITALS: BP 92/66; PULSE 96; TEMP 98.8
== END 2022-01-19 15:32 | disposition home or self-care (01) | DRG 386 ==
LOC: JER 13:31 → JERBED 19:49 → J7W 22:22 → OBSVTOIN 01-18 09:57
PROVIDERS: ADMIT Internal Medicine; ATTEND Family Medicine
PROC: 0DJD8ZZ Inspection of Lower Intestinal Tract, Via Natural or Artificial Opening Endoscopic (ICD-10-PCS; principal; 2022-01-18 12:45)
DX: K51.90 Ulcerative colitis, unspecified, without complications (principal); K56.7 Ileus, unspecified; R74.01 Elevation of levels of liver transaminase levels; E11.42 Type 2 diabetes mellitus with diabetic polyneuropathy; E11.43 Type 2 diabetes mellitus with diabetic autonomic (poly)neuropathy; R63.4 Abnormal weight loss; E78.5 Hyperlipidemia, unspecified; F41.8 Other specified anxiety disorders; E86.0 Dehydration; E11.65 Type 2 diabetes mellitus with hyperglycemia; Z68.24 Body mass index [BMI] 24.0-24.9, adult; I95.1 Orthostatic hypotension; R94.5 Abnormal results of liver function studies; G47.00 Insomnia, unspecified; R11.2 Nausea with vomiting, unspecified
CPT/HCPCS: 0241U-QW; 36415; 74177-TC; 76705-TC; 80053; 80076; 81003; 81025; 82728; 82962; 83036; 83516; 83690; 83735; 84443; 84703; 85025; 85027; 85610; 85730; 86038; 86140; 86705; 86708; 86803; 87045; 87046; 87086; 87186; 87205; 87209; 87324; 87340; 87449; 87517; 93005; 93010; 97116-GP; 97161-GP; 99285-25; G0378; Q9967

== ENCOUNTER 2022-06-11 01:47 | Emergency (ER) | payer MEDICARE, OTHER ==
[2022-06-11 01:59] VITALS: BMI 24.0
[2022-06-11] MEDS ORDERED: ACETAMINOPHEN 1000 MG/100 ML BAG IVPB ONE (07:37)
[2022-06-11 07:48] LABS: BASO % 0.7 % (0-2.0); EOS % 0.5 % (0-4.5); HEMATOCRIT 31.2 % (32.4-45.2); HEMOGLOBIN 10.7 GM/dL (10.7-15.3); LYMPH % 28.8 % (8-40); MCH 28.5 pg (25.7-33.7); MCHC 34.2 g/dl (32.0-36.0); MEAN CELL VOLUME 83.3 fl (80-96); MEAN PLT VOLUME 7.8 fl (7.5-11.1); PLATELET COUNT 311 10^3/uL (134-434); RBC 3.75 M/mm3 (3.60-5.2); RDW 15.4 % (11.6-15.6); WHITE BLOOD COUNT 7.2 K/mm3 (4.0-10.0)
[2022-06-11 07:57] LABS: PROTHROMBIN TIME (PATIENT) 11.5 SEC (9.7-13.0)
[2022-06-11 08:00] LABS: ACTIVATED PTT 31.4 SECONDS (25.2-36.5)
[2022-06-11 08:08] LABS: CALCIUM 9.3 mg/dL (8.5-10.1)
[2022-06-11 08:09] LABS: ALBUMIN 3.3 g/dl (3.4-5.0); BLOOD UREA NITROGEN 23.8 mg/dL (7-18)
[2022-06-11 08:12] LABS: CREATININE 0.8 mg/dL (0.55-1.3)
[2022-06-11 08:14] LABS: BILIRUBIN,TOTAL 0.2 mg/dL (0.2-1); TOT PROT 6.7 g/dl (6.4-8.2)
[2022-06-11] MEDS ORDERED: ACETAMINOPHEN INJECTION 100 ML IVPB ONE (08:37)
[2022-06-11 11:19] VITALS: BP 117/75; PULSE 96; RESP 20; TEMP 98.2
== END 2022-06-11 11:27 | disposition home or self-care (01) ==
LOC: JER 01:47
PROC: 3E0333Z Introduction of Anti-inflammatory into Peripheral Vein, Percutaneous Approach (ICD-10-PCS; principal; 2022-06-11)
DX: R07.9 Chest pain, unspecified (principal)
CPT/HCPCS: 36415; 80053; 84484; 84703; 85025; 85379; 85610; 85730; 93005; 93010; 96374; 99285-25

== ENCOUNTER 2022-06-14 18:54 | Emergency (ER) | payer MEDICARE ==
[2022-06-14 19:02] VITALS: BP 140/76; PULSE 95; RESP 18; TEMP 97; BMI 24.9
[2022-06-14] MEDS ORDERED: FAMOTIDINE 20 MG/50 ML IVPB 20 MG/50 ML MG IVPB ONE ×2 (20:46→21:06)
[2022-06-14] MEDS ORDERED: SUCRALFATE 1 GM TABLET (FP) PO ONE (20:46)
[2022-06-14] MEDS ORDERED: ACETAMINOPHEN 1000 MG/100 ML BAG IVPB ONE (20:46)
[2022-06-14] MEDS ORDERED: LORazepam 2 MG/ML SDV VIAL IVPUSH ONE (20:46)
[2022-06-14] MEDS ORDERED: MAG HYDROX/AL HYDROX/SIMETH -MYLANTA- ORAL SUSPENSION PO ONE (20:46)
[2022-06-14] MEDS ORDERED: MAG HYDROX/AL HYDROX/SIMETH 30 ML UNIT-DOSE CUP ONE (21:05)
[2022-06-14] MEDS ORDERED: ACETAMINOPHEN INJECTION 100 ML IVPB ONE (21:05)
[2022-06-14] MEDS ORDERED: SUCRALFATE 1 GM TABLET (FP) ONE (21:05)
[2022-06-14 21:14] LABS: BASO % 0.7 % (0-2.0); EOS % 1.6 % (0-4.5); HEMATOCRIT 33.9 % (32.4-45.2); HEMOGLOBIN 11.4 GM/dL (10.7-15.3); LYMPH % 44.9 % (8-40); MCH 28.2 pg (25.7-33.7); MCHC 33.6 g/dl (32.0-36.0); MEAN CELL VOLUME 83.9 fl (80-96); MEAN PLT VOLUME 7.6 fl (7.5-11.1); MONO % 5.8 % (3.8-10.2); PLATELET COUNT 356 10^3/uL (134-434); RBC 4.05 M/mm3 (3.60-5.2); RDW 15.5 % (11.6-15.6)
[2022-06-14 21:36] LABS: CALCIUM 9.1 mg/dL (8.5-10.1)
[2022-06-14 21:37] LABS: BLOOD UREA NITROGEN 31.3 mg/dL (7-18)
[2022-06-14 21:40] LABS: CREATININE 1.1 mg/dL (0.55-1.3)
[2022-06-14 21:41] LABS: BILIRUBIN,TOTAL 0.3 mg/dL (0.2-1); TOT PROT 8.1 g/dl (6.4-8.2)
[2022-06-14] MEDS ORDERED: KETOROLAC TROMETHAMINE 15 MG/ML VIAL IVPUSH ONE (22:09)
[2022-06-14] MEDS ORDERED: KETOROLAC TROMETHAMINE 15 MG/ML VIAL ONE (22:13)
== END 2022-06-14 22:28 | disposition home or self-care (01) ==
LOC: JER 18:54
PROC: 3E0333Z Introduction of Anti-inflammatory into Peripheral Vein, Percutaneous Approach (ICD-10-PCS; principal; 2022-06-14)
PROC: 3E033GC Introduction of Other Therapeutic Substance into Peripheral Vein, Percutaneous Approach (ICD-10-PCS; 2022-06-14)
PROC: 3E0333Z Introduction of Anti-inflammatory into Peripheral Vein, Percutaneous Approach (ICD-10-PCS; 2022-06-14)
PROC: 3E033NZ Introduction of Analgesics, Hypnotics, Sedatives into Peripheral Vein, Percutaneous Approach (ICD-10-PCS; 2022-06-14)
DX: R07.9 Chest pain, unspecified (principal)
CPT/HCPCS: 36415; 71046-TC-FY; 80053; 83690; 83880; 84484; 85025; 93005; 93010; 96374; 96375; 99285-25

== ENCOUNTER 2022-10-04 21:56 | Emergency (ER) | payer MEDICARE ==
[2022-10-04 22:00] VITALS: BP 125/79; PULSE 102; RESP 18; TEMP 98.8; BMI 25.5
[2022-10-04] MEDS ORDERED: DEXAMETHASONE SOD PHOSPHATE 4 MG/1 ML VIAL IVPUSH ONE (22:49)
[2022-10-04] MEDS ORDERED: FLUTICASONE PROP 0.05% 16 GM NASAL SPRAY NS ONE (22:50)
[2022-10-04] MEDS ORDERED: DEXAMETHASONE SOD PHOSPHATE 10 MG/1 ML VIAL ONE (22:51)
[2022-10-04] MEDS ORDERED: AMOX TR/POT CLAV 875MG/125MG TABLETS (FP) PO ONE (22:54)
[2022-10-04] MEDS ORDERED: AMOX TR/POT CLAV 875MG/125MG TABLETS (FP) ONE (23:00)
== END 2022-10-04 23:13 | disposition home or self-care (01) ==
LOC: JERFT 21:56
PROC: 3E033NZ Introduction of Analgesics, Hypnotics, Sedatives into Peripheral Vein, Percutaneous Approach (ICD-10-PCS; principal; 2022-10-04)
DX: H92.03 Otalgia, bilateral (principal); R05.9 Cough, unspecified; R09.81 Nasal congestion; J06.9 Acute upper respiratory infection, unspecified; H66.93 Otitis media, unspecified, bilateral
CPT/HCPCS: 96374; 99284-25

== ENCOUNTER 2023-12-11 10:41 | Emergency (ER) | payer MEDICARE ==
[2023-12-11 10:59] VITALS: BP 114/77; PULSE 90; RESP 18; TEMP 98.4; BMI 23.5
[2023-12-11] MEDS ORDERED: LORATADINE 10 MG TABLET ONE (11:43)
[2023-12-11] MEDS ORDERED: IBUPROFEN 600 MG TABLET (FP) PO ONE (11:43)
[2023-12-11] MEDS: LORATADINE 10 MG TABLET PO ONE (11:48)
[2023-12-11] MEDS: IBUPROFEN 600 MG TABLET (FP) PO ONE (11:48)
== END 2023-12-11 11:58 | disposition home or self-care (01) ==
LOC: JERFT 10:41
DX: H92.03 Otalgia, bilateral (principal); H69.93 Unspecified Eustachian tube disorder, bilateral
CPT/HCPCS: 99283-25

== ENCOUNTER 2024-07-01 07:18 | Day surgery (SDC) | payer MEDICARE, OTHER ==
[2024-06-30 11:09] VITALS: BMI 25.5
[2024-07-01 13:21] VITALS: RESP 16; TEMP 97.6
[2024-07-01] MEDS: BUPIVACAINE HCL/PF 0.5% (5MG/ML) 10 ML VIAL IJ ONE (15:32)
[2024-07-01] MEDS: LIDOCAINE HCL 1% PRESERVATIVE FREE - 30ML VIAL IJ ONE (15:32)
[2024-07-01 15:56] VITALS: BP 130/50; PULSE 88
[2024-07-01] MEDS ORDERED: ACETAMINOPHEN 500 MG TABLET (FP) PO PRN (17:00)
== END 2024-07-01 16:12 | disposition home or self-care (01) ==
LOC: JASU-SURG 07:18
PROVIDERS: ATTEND Pain Medicine Pain Medicine
PROC: 3E0T3BZ Introduction of Anesthetic Agent into Peripheral Nerves and Plexi, Percutaneous Approach (ICD-10-PCS; principal; 2024-07-01 14:30)
DX: M47.812 Spondylosis without myelopathy or radiculopathy, cervical region (principal)
CPT/HCPCS: 76000-TC-FY